=== PATIENT | male | born 1955 | race Caucasian/White ===

== ENCOUNTER 2016-10-20 16:05 | Inpatient (IN) | payer OTHER, MEDICARE ==
[~2016-10-20] VITALS: Ht 190.5 cm; Wt 95.7 kg
[2016-10-20 17:23] VITALS: BP 158/75; PULSE 74; RESP 16; TEMP 96.6; O2SAT 94
[2016-10-20 18:57] LABS: AUTOMATED NEUTROPHIL # 8.4 TH/MM3 (1.8-7.7); BASOPHIL # 0.1 TH/MM3 (0-0.2); BASOPHIL % 0.8 % (0.0-2.0); EOSINOPHIL # 0.1 TH/MM3 (0-0.4); EOSINOPHIL % 0.9 % (0.0-4.0); HEMATOCRIT 35.9 % (39.0-51.0); HEMO FLAGS DIFF FINAL; LYMPH % 6.5 % (9.0-44.0); LYMPHOCYTE # 0.6 TH/MM3 (1.0-4.8); MEAN CELL VOLUME 82.8 FL (80.0-100.0); MEAN CORPUSCULAR HEMOGLOBIN 25.4 PG (27.0-34.0); MEAN CORPUSCULAR HGB CONC 30.6 % (32.0-36.0); MONO % 8.4 % (0.0-8.0); NEUT % 83.4 % (16.0-70.0); PLATELET COUNT 256 TH/MM3 (150-450); RED BLOOD COUNT 4.34 MIL/MM3 (4.50-5.90); RED CELL DISTRIBUTION WIDTH 15.6 % (11.6-17.2)
[2016-10-20 19:12] LABS: APTT (PATIENT) 51.8 SEC (24.3-30.1); INTERNATIONAL NORMALIZED RATIO 4.1 RATIO
[2016-10-20 19:17] LABS: ANION GAP 12 MEQ/L (5-15); AST (GOT) 25 U/L (15-37); BICARBONATE 24.5 MEQ/L (21.0-32.0); BLOOD UREA NITROGEN 72 MG/DL (7-18); CHLORIDE 106 MEQ/L (98-107); GLOMERULAR FILTRATION RATE 22 ML/MIN (>89); POTASSIUM 4.2 MEQ/L (3.5-5.1); SODIUM (NA) 142 MEQ/L (136-145)
[2016-10-20 19:20] LABS: ALKALINE PHOSPHATASE 72 U/L (45-117); ALT (GPT) 34 U/L (12-78); TOTAL BILIRUBIN ADULT 0.8 MG/DL (0.2-1.0)
--- NOTE | 2016-10-20 19:56 | HHI.HP ---
History of Present Illness Chief Complaint: back pain, SOB History of Present Illness 61 yo male with Marfan's syndrome who in 1998 underwent AVR/root (from his description) for what sounds like incidentally discovered ascending aortic aneurysm. Did well but then in 2007 had CP/SOB and was seen at [facility] and underwent L C-SC bypass with TEVAR, being discharged in December 2008. He has had chronic SOB since then but over the last few weeks it has worsened and he was admitted to outside hospital on . A CT scan (images NOT available) suggests he has an aneurysm or maybe pseudoaneurysm, although the CT was done without contrast because of renal insufficiency. The patient notes that his current worsening SOB is not worse since admission 4 days ago. Past/Family/Social History Past Medical History Marfan's syndrome HTN ?CAD CHF (15% reportedly) CRI Past Surgical History 1. AVR/ascending root - 1998 2. L C-SC/TEVAR - 2007 3. 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 Family History no history of Marfan's Coded Allergies: Vancomycin (Verified Allergy, Severe, Hallucinations, 10/20/16) Penicillin (Verified Allergy, Mild, Hives, 10/20/16) Review of Systems Constitutional: COMPLAINS OF: Fatigue, DENIES: Fever, Night Sweats Respiratory: COMPLAINS OF: Shortness of breath Cardiovascular: COMPLAINS OF: Dyspnea on Exertion, DENIES: Chest pain, Syncope Musculoskeletal: COMPLAINS OF: Joint pain, Back pain Physical Exam Vitals/I&O Date Time Temp Pulse Resp B/P Pulse Ox O2 Delivery O2 Flow Rate FiO2 10/20/16 17:23 96.6 74 16 158/75 94 Neuro: resting comfortably, does not appear to be in any distress HEENT: NC/AT; aniecteric sclera; pupils equal Neck: no JVD; healed L supraclavicular neck incision Heart: + audible click; sternotomy healed Lungs: diminished BS B Abdomen: NT, slightly distended Vascular: palpable femoral pulses, sl tender palp popliteal pulses Extremities: LAMAS Laboratory Tests Test 10/20/16 18:35 White Blood Count 10.0 Red Blood Count 4.34 Hemoglobin 11.0 Hematocrit 35.9 Mean Corpuscular Volume 82.8 Mean Corpuscular Hemoglobin 25.4 Mean Corpuscular Hemoglobin 30.6 Concent Red Cell Distribution Width 15.6 Platelet Count 256 Mean Platelet Volume 7.9 Neutrophils (%) (Auto) 83.4 Lymphocytes (%) (Auto) 6.5 Monocytes (%) (Auto) 8.4 Eosinophils (%) (Auto) 0.9 Basophils (%) (Auto) 0.8 Neutrophils # (Auto) 8.4 Lymphocytes # (Auto) 0.6 Monocytes # (Auto) 0.8 Eosinophils # (Auto) 0.1 Basophils # (Auto) 0.1 CBC Comment DIFF FINAL Differential Comment Prothrombin Time 48.0 Prothromb Time International 4.1 Ratio Activated Partial 51.8 Thromboplast Time Sodium Level 142 Potassium Level 4.2 Chloride Level 106 Carbon Dioxide Level 24.5 Anion Gap 12 Blood Urea Nitrogen 72 Creatinine 2.94 Estimat Glomerular Filtration 22 Rate Random Glucose 103 Calcium Level 9.3 Total Bilirubin 0.8 Aspartate Amino Transf 25 (AST/SGOT) Alanine Aminotransferase 34 (ALT/SGPT) Alkaline Phosphatase 72 Total Protein 8.0 Albumin 4.3 not available for my review; no free fluid per report Assessment and Plan Plan Complicated cardiovascular history - Marfan's, AVR/ascending and then L C-SC/ TEVAR 1. Reverse coumadin (INR 4.1) and start hep gtt when INR < 2.0; will give vit K for now and hold coumadin 2. BP control for goal SBP<[address] C/A/P tonight. 4. Gentle IV hydration with HCO3 in anticipation of CTA tomorrow (creatinine 3) 5. TTE, ABIs Darryl Pérez MD FACS dwarf tree grower [facility] - Heart and Vascular Surgery at [facility] Darryl Pérez MD October 20, 2016 19:56
[2016-10-20 20:00] VITALS: BP 159/72; PULSE 67; RESP 17; TEMP 97.8; O2SAT 94
[2016-10-20] MEDS ORDERED: PHYTONADIONE 5 MG TAB PO ONE (20:00)
[2016-10-20] MEDS: PHYTONADIONE 5 MG TAB PO SCH ×2 (20:00→21:42)
[2016-10-20] MEDS: RESP: ALBUTEROL 2.5 MG/IPRATROPIUM 0.5 MG NEB (SCH) NEB (20:08)
[2016-10-20] MEDS ORDERED: ACETYLCYSTEINE 20% ORAL SOLN 4 ML VIAL PO SCH (21:00)
[2016-10-20] MEDS ORDERED: SODIUM BICARBONATE 8.4% INJ 50 MEQ in DEXTROSE 5% IN WATE 1000ML INJ 1,000 ML IV SCH ×2 (21:00)
[2016-10-20] MEDS ORDERED: FUROSEMIDE 40 MG/4 ML VIAL IV PUSH SCH (21:00)
--- NOTE | 2016-10-20 21:19 | PD.CONS ---
HPI Service Critical Care Medicine Consult Requested By Primary Care Physician Unknown History of Present Illness 61 year old very pleasant gentleman with Marfan's syndrome who in 1998 underwent aortic valve replacement - root due to ascending aortic aneurysm. He was doing well but then in 2007 had chest pain and shortness of breath and was seen at [facility] and underwent L C-SC bypass with TAVR, and was discharged in December 2008. He has had chronic SOB since then but over the last few weeks it has worsened and he was admitted to outside hospital on . A CT scan suggested he has an aneurysm or pseudoaneurysm and he was transferred here for higher level of care. Review of Systems Constitutional: DENIES: Diaphoretic episodes, Fatigue, Fever, Weight gain, Weight loss, Chills, Dizziness, Change in appetite, Night Sweats Endocrine: DENIES: Heat/cold intolerance, Polydipsia, Polyuria, Polyphagia Eyes: DENIES: Blurred vision, Diplopia, Eye inflammation, Eye pain, Vision loss , Photosensitivity, Double Vision Ears, nose, mouth, throat: DENIES: Tinnitus, Hearing loss, Vertigo, Nasal discharge, Oral lesions, Throat pain, Hoarseness, Ear Pain, Running Nose, Epistaxis, Sinus Pain, Toothache, Odynophagia Respiratory: COMPLAINS OF: Shortness of breath, DENIES: Apneas, Cough, Snoring , Wheezing, Hemoptysis, Sputum production Cardiovascular: COMPLAINS OF: Dyspnea on Exertion, DENIES: Chest pain, Palpitations, Syncope, PND, Lower Extremity Edema, Orthopnea, Claudication Gastrointestinal: DENIES: Abdominal pain, Black stools, Bloody stools, Constipation, Diarrhea, Nausea, Vomiting, Difficulty Swallowing, Anorexia Genitourinary: DENIES: Sexual dysfunction, Urinary frequency, Urinary incontinence, Urgency, Hematuria, Dysuria, Nocturia, Penile Discharge, Testicular Pain, Testicular Swelling Musculoskeletal: DENIES: Joint pain, Muscle aches, Stiffness, Joint Swelling, Back pain, Neck pain Integumentary: DENIES: Abnormal pigmentation, Nail changes, Pruritus, Rash Hematologic/lymphatic: DENIES: Bruising, Lymphadenopathy Immunologic/allergic: DENIES: Eczema, Urticaria Neurologic: DENIES: Abnormal gait, Headache, Localized weakness, Paresthesias, Seizures, Speech Problems, Tremor, Poor Balance Psychiatric: DENIES: Anxiety, Confusion, Mood changes, Depression, Hallucinations, Agitation, Suicidal Ideation, Homicidal Ideation, Delusions Past Family Social History Allergies: Coded Allergies: Vancomycin (Verified Allergy, Severe, Hallucinations, 10/20/16) Penicillin (Verified Allergy, Mild, Hives, 10/20/16) Past Medical History Marfan's syndrome Hypertension Coronary artery disease Congestive heart failure (15% reportedly) Chronic renal insufficiency Past Surgical History 1. AVR/ascending root - 1998 2. L C-SC/TEVAR - 2007 3. R neck gland excision - age 9 Active Ordered Medications Current Medications Medications (Trade) Dose Ordered Sig/Katharina Route PRN Reason Start Time Stop Time Status Last Admin Dose Admin Aspirin (Aspirin Chew) 81 mg DAILY PO 10/21/16 09:00 Famotidine (Pepcid) 20 mg DAILY PO 10/21/16 09:00 Cholecalciferol (Vitamin D3) 1,000 units DAILY PO 10/21/16 09:00 Furosemide (Lasix Inj) 40 mg BID IV PUSH 10/20/16 21:00 Future Hold 10/20/16 21:29 Metoprolol Tartrate (Lopressor) 100 mg BID PO 10/20/16 21:00 10/20/16 21:25 Valsartan (Diovan) 80 mg DAILY PO 10/21/16 09:00 Future Hold Nicotine (Habitrol 21 Mg Patch.24 Hr) 21 patch DAILY T-DERMAL 10/21/16 09:00 Lorazepam (Ativan) 0.5 mg Q6H PRN PO ANXIETY 10/20/16 19:15 Morphine Sulfate (Morphine Inj) 2 mg Q4H PRN IV MODERATE PAIN 10/20/16 19:15 10/20/16 21:27 Metoprolol Tartrate 5 mg 5 mg Q2H PRN IV PUSH SBP >130 10/20/16 20:00 Sodium Bicarbonate/ Dextrose (Sodium Bicarbonate 8.4% Inj/D5W 1000 ml Inj) 1,050 ml @ 42 mls/hr Q24H IV 10/20/16 21:00 Phytonadione (Mephyton) 5 mg DAILY PO 10/20/16 20:00 10/23/16 09:00 Acetylcysteine (Mucomyst 20% Liq) 600 mg BID PO 10/20/16 21:00 10/22/16 21:00 Family History Noncontributory No family history of Marfan syndrome Social History Negative for alcohol or illicit drug abuse 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 SKIN: Warm and dry. HEAD: Normocephalic. EYES: No scleral icterus. No injection or drainage. NECK: Supple, trachea midline. No JVD or lymphadenopathy. CARDIOVASCULAR: Regular rate and rhythm without murmurs, gallops, or rubs. RESPIRATORY: Breath sounds equal bilaterally. No accessory muscle use. GASTROINTESTINAL: Abdomen soft, non-tender, nondistended. MUSCULOSKELETAL: No cyanosis, or edema. BACK: Nontender without obvious deformity. No CVA tenderness. EXTREMITIES: No clubbing cyanosis or edema Laboratory Laboratory Tests Test 10/20/16 18:35 White Blood Count 10.0 Red Blood Count 4.34 Hemoglobin 11.0 Hematocrit 35.9 Mean Corpuscular Volume 82.8 Mean Corpuscular Hemoglobin 25.4 Mean Corpuscular Hemoglobin 30.6 Concent Red Cell Distribution Width 15.6 Platelet Count 256 Mean Platelet Volume 7.9 Neutrophils (%) (Auto) 83.4 Lymphocytes (%) (Auto) 6.5 Monocytes (%) (Auto) 8.4 Eosinophils (%) (Auto) 0.9 Basophils (%) (Auto) 0.8 Neutrophils # (Auto) 8.4 Lymphocytes # (Auto) 0.6 Monocytes # (Auto) 0.8 Eosinophils # (Auto) 0.1 Basophils # (Auto) 0.1 CBC Comment DIFF FINAL Differential Comment Prothrombin Time 48.0 Prothromb Time International 4.1 Ratio Activated Partial 51.8 Thromboplast Time Sodium Level 142 Potassium Level 4.2 Chloride Level 106 Carbon Dioxide Level 24.5 Anion Gap 12 Blood Urea Nitrogen 72 Creatinine 2.94 Estimat Glomerular Filtration 22 Rate Random Glucose 103 Calcium Level 9.3 Total Bilirubin 0.8 Aspartate Amino Transf 25 (AST/SGOT) Alanine Aminotransferase 34 (ALT/SGPT) Alkaline Phosphatase 72 Total Protein 8.0 Albumin 4.3 Result Diagram: 10/20/16183410/20/165 Assessment and Plan Assessment and Plan Thoracic aneurysm - CT chest without contrast without any sense of active extravasation - CTA tomorrow - Management per vascular surgery - Reverse Coumadin coagulopathy Hypertension - Continue metoprolol - Hold Valsartan due to impaired renal function - Hold Furosemide - We'll use Lopressor when necessary to keep SBP less than 130 Coronary artery disease - EKGs and serial troponins Congestive heart failure (15% reportedly) - Repeat 2-D echo - Hold ARBs due to worsening renal function in in need of IV contrast - Hold diuretics as above Chronic renal insufficiency - Avoid nephrotoxin - Gentle hydration with sodium bicarbonate DVT GI prophylaxis - Teds SCDs heparin - Heart healthy diet Critical Care: The total critical care time was 35 minutes. Time to perform other separately billable procedures was not included in the critical care time. Ricardo Gasca MD October 20, 2016 21:19
[2016-10-20] MEDS: METOPROLOL TARTRATE 50 MG TAB PO SCH (21:25)
[2016-10-20] MEDS: MORPHINE SULFATE 4 MG/ML INJ IV PRN (21:27)
--- NOTE | 2016-10-20 21:34 | RADRPT ---
EXAM DATE/TIME: 10/20/2016 20:58 [facility] COMPARISON: No previous studies available for comparison. INDICATIONS : Short of breath. Evaluate for aneurysm. ORAL CONTRAST: No oral contrast ingested. RADIATION DOSE: 5.54 CTDIvol (mGy) ; Combined studies - Thorax/Abdomen/Pelvis MEDICAL HISTORY : Chronic obstructive pulmonary disease. Cardiovascular disease CVA. SURGICAL HISTORY : Hernia repair. Aortic valve replacement. ENCOUNTER: Initial ACUITY: 1 day PAIN SCALE: 0/10 LOCATION: Bilateral abdomen TECHNIQUE: Volumetric scanning of the abdomen and pelvis was performed. Using automated exposure control and ad justment of the mA and/or kV according to patient size, radiation dose was kept as low as reasonably achievable to obtain optimal diagnostic quality images. FINDINGS: LIVER: Homogeneous density without lesion. There is no dilation of the biliary tree. No calcified gallston es. SPLEEN: Normal size without lesion. PANCREAS: Within normal limits. KIDNEYS: Too numerous to count cysts are seen of both kidneys. There some cortical thinning and scarring mid z one of the right kidney. There is a 4 mm nonobstructing right mid zone and 3 mm nonobstructing left m id zone stone. No ureteral calculus. No hydronephrosis or hydroureter. ADRENAL GLANDS: Within normal limits. VASCULAR: There is aortoiliac atherosclerosis. No aneurysm. BOWEL/MESENTERY: Retained contrast seen in the colon, may have been from a recent outside facility enema. There are di verticula of the sigmoid and distal descending colon but no acute inflammatory changes. No obstructio n. ABDOMINAL WALL: Within normal limits. RETROPERITONEUM: There is no lymphadenopathy. BLADDER: No wall thickening or mass. REPRODUCTIVE: Within normal limits. INGUINAL: There is no lymphadenopathy or hernia. MUSCULOSKELETAL: Within normal limits for patient age. CONCLUSION: 1. Abdominal aorta is atherosclerotic but without aneurysm or other acute abnormality. 2. Apparent polycystic kidney disease. No acute abnormality demonstrated. 3. Colonic diverticulosis without diverticulitis or other acute inflammatory changes. Yan Barrera MD on October 20, 2016 at 21:29 Board Certified Radiologist. This report was verified electronically.
[2016-10-20] MEDS: ACETYLCYSTEINE 20% 6,000 MG/30 ML ORAL SOLN VIAL PO SCH (21:41)
--- NOTE | 2016-10-20 21:53 | RADRPT ---
EXAM DATE/TIME: 10/20/2016 21:01 [facility] COMPARISON: No previous studies available for comparison. INDICATIONS : Short of breath. Evaluate for aortic dissection. RADIATION DOSE: 5.54 CTDIvol (mGy) ; Combined studies - Thorax/Abdomen/Pelvis MEDICAL HISTORY : Cardiovascular disease. Chronic obstructive pulmonary disease. CVA. SURGICAL HISTORY : Hernia repair. Aortic valve replacement. ENCOUNTER: Initial ACUITY: 1 day PAIN SCALE: 0/10 LOCATION: Bilateral chest TECHNIQUE: Volumetric scanning of the chest was performed. Using automated exposure control and adjustment of t he mA and/or kV according to patient size, radiation dose was kept as low as reasonably achievable to obtain optimal diagnostic quality images. FINDINGS: Patient has a thoracic aortic stent extending from the root to the descending aorta at the level of t he diaphragm. There is aneurysmal dilatation of the descending thoracic aorta, measures approximately 5.2 cm maximum. Most if not all of this is probably residual aneurysm sac but I don't have any prior s. Within the aneurysm sac, especially anteriorly, is somewhat heterogeneous increased attenuation, f or example series 301 image 32. The noncontrast appearance suggests a possible endoleak or armand-stent hematoma. I don't see a hematoma outside of the aortic lumen. A somewhat saccular portion of the ane urysm sac is seen laterally just above the diaphragm, has fairly low attenuation within it. Mild left ventricular dilatation. There is right and left-sided coronary artery calcification. N o mediastinal lymphadenopathy. Mild atelectasis and infiltrate seen in the left lung base. There is some chronic appearing left base scarring with volume loss. Old left rib fractures are noted. CONCLUSION: 1. Aortic stent graft present extending from the root to the diaphragmatic hiatus. There is an aneury sm sac of the descending thoracic aorta with somewhat heterogeneous attenuation contents and also a f ocally saccular configuration as described above. Endoleak and/or hematoma within the aneurysm sac po ssible. I don't see any extraluminal collections or inflammatory changes. There is no mediastinal hem atoma. If patient's renal function can tolerate it, CT aortogram is suggested. 2. Patchy infiltrate and atelectasis of the left lung base. There is chronic appearing volume loss. P atient has old left rib fractures. 3. Left ventricular dilatation and coronary artery calcification noted. Yan Barrera MD on October 20, 2016 at 21:44 Board Certified Radiologist. This report was verified electronically.
--- NOTE | 2016-10-20 22:34 | EKG ---
Date Performed: 10/20/2016 Time Performed: 19:25:46 PTAGE: 61 years EKG: Sinus rhythm WITH OCCASIONAL VENTRICULAR PREMATURE COMPLEXES POSSIBLE LEFT ATRIAL ENLARGEMENT NONSPECIFIC INTRAVE NTRICULAR CONDUCTION DELAY ABNORMAL ECG NO PREVIOUS TRACING DOCTOR: Linus Vargas Interpretating Date/Time 10/20/2016 22:33:43
[2016-10-20] MEDS ORDERED: RESP: ALBUTEROL 2.5 MG/IPRATROPIUM 0.5 MG NEB (PRN) NEB (22:45)
[2016-10-20 23:30] VITALS: PULSE 68
[2016-10-21] VITALS (12 sets, daily range): BP systolic 99–145; BP diastolic 55–80; PULSE 64–73; RESP 16–20; TEMP 97.5–98.2; O2SAT 93–99
[2016-10-21] MEDS: METOPROLOL TARTRATE 5 MG/5 ML VIAL IV PUSH PRN ×3 (00:43→16:23)
[2016-10-21] MEDS: MORPHINE SULFATE 4 MG/ML INJ IV PRN ×3 (01:36→08:55)
[2016-10-21] MEDS: RESP: ALBUTEROL 2.5 MG/IPRATROPIUM 0.5 MG NEB (SCH) NEB ×4 (04:35→21:52)
[2016-10-21 06:03] LABS: AUTOMATED NEUTROPHIL # 6.1 TH/MM3 (1.8-7.7); BASOPHIL # 0.1 TH/MM3 (0-0.2); EOSINOPHIL # 0.1 TH/MM3 (0-0.4); EOSINOPHIL % 1.5 % (0.0-4.0); HEMATOCRIT 33.8 % (39.0-51.0); HEMO FLAGS DIFF FINAL; LYMPHOCYTE # 0.9 TH/MM3 (1.0-4.8); MEAN CELL VOLUME 82.1 FL (80.0-100.0); MEAN CORPUSCULAR HEMOGLOBIN 25.4 PG (27.0-34.0); MEAN CORPUSCULAR HGB CONC 30.9 % (32.0-36.0); MONO % 12.6 % (0.0-8.0); NEUT % 73.9 % (16.0-70.0); PLATELET COUNT 245 TH/MM3 (150-450); RED BLOOD COUNT 4.12 MIL/MM3 (4.50-5.90); RED CELL DISTRIBUTION WIDTH 15.5 % (11.6-17.2); WHITE BLOOD COUNT 8.3 TH/MM3 (4.0-11.0)
[2016-10-21 06:17] LABS: INTERNATIONAL NORMALIZED RATIO 3.8 RATIO; PROTHROMBIN TIME - PATIENT 44.5 SEC (9.8-11.6)
[2016-10-21 06:27] LABS: ALT (GPT) 29 U/L (12-78); ANION GAP 8 MEQ/L (5-15); AST (GOT) 16 U/L (15-37); BICARBONATE 27.1 MEQ/L (21.0-32.0); BLOOD UREA NITROGEN 68 MG/DL (7-18); CHLORIDE 108 MEQ/L (98-107); GLOMERULAR FILTRATION RATE 24 ML/MIN (>89); MAGNESIUM 2.8 MG/DL (1.5-2.5); POTASSIUM 4.1 MEQ/L (3.5-5.1); SODIUM (NA) 143 MEQ/L (136-145)
[2016-10-21 06:32] LABS: ALKALINE PHOSPHATASE 66 U/L (45-117); TOTAL BILIRUBIN ADULT 0.7 MG/DL (0.2-1.0)
[2016-10-21] MEDS ORDERED: FUROSEMIDE 20 MG/2 ML VIAL IV PUSH ONE (06:45)
[2016-10-21 06:55] LABS: BLOOD GAS BASE EXCESS -2.2 mmol/L (-2-2); BLOOD GAS HCO3 22 mmol/L (22-26); BLOOD GAS METHEMOGLOBIN 1.1 % (0-2); BLOOD GAS O2 HGB SATURATION 95 % (90-100); BLOOD GAS OXYGEN CONTENT 13.4 Vol % (12.0-20.0); BLOOD GAS PCO2 40 mmHg (38-42); BLOOD GAS PO2 110 mmHg (61-120); BLOOD GAS TOTAL HGB 9.9 G/DL (12.0-16.0); CRITICAL VALUE NO; DRAW SITE LT RADIAL; LITER FLOW 2 L/M; NUMBER OF ARTERIAL PUNCTURES 1; OXYGEN DEVICE NASAL CANNULA; STAT NO; TEMP CORR TO 98.6; ULNAR PULSE PRESENT
[2016-10-21] MEDS: ASPIRIN 81 MG CHEW TAB PO SCH (08:51)
[2016-10-21] MEDS: NICOTINE 21 MG/24 HR PATCH T-DERMAL SCH (08:53)
[2016-10-21] MEDS: FAMOTIDINE 20 MG TAB PO SCH (08:54)
[2016-10-21] MEDS: METOPROLOL TARTRATE 50 MG TAB PO SCH ×2 (08:54→21:39)
[2016-10-21] MEDS: CHOLECALCIFEROL (VIT D3) 1000 UNIT TAB PO SCH (08:54)
[2016-10-21] MEDS ORDERED: VALSARTAN 80 MG TAB PO SCH (09:00)
[2016-10-21] MEDS ORDERED: NALOXONE HCL 0.4 MG/ML AMP IV PRN (10:30)
--- NOTE | 2016-10-21 10:38 | PD.VS.PN ---
Subjective Subjective/Hospital Course Pt with persistent back pain this morning. Stable. NC CT suggestive of mid/distal thoracic pseudoaneurysm. No IV contrast administered because of CRI. No fluid in chest. HD stable overnight. Objective Vitals/I&O Date Time Temp Pulse Resp B/P Pulse Ox O2 Delivery O2 Flow Rate FiO2 10/21/16 09:00 16 10/21/16 06:00 66 10/21/16 04:35 99 Nasal Cannula 2.00 10/21/16 04:00 67 10/21/16 04:00 98.2 67 18 134/72 98 10/21/16 02:00 66 10/21/16 00:00 97.5 64 18 134/77 98 10/21/16 00:00 97.9 66 17 111/55 97 10/20/16 23:30 68 10/20/16 20:00 97.8 67 17 159/72 94 10/20/16 17:23 96.6 74 16 158/75 94 Physical Exam no distress. Palpable femoral pulses. Laboratory Laboratory Tests Test 10/20/16 10/21/16 10/21/16 10/21/16 18:35 05:29 06:43 06:44 White Blood Count 10.0 8.3 Red Blood Count 4.34 4.12 Hemoglobin 11.0 10.5 Hematocrit 35.9 33.8 Mean Corpuscular Volume 82.8 82.1 Mean Corpuscular Hemoglobin 25.4 25.4 Mean Corpuscular Hemoglobin 30.6 30.9 Concent Red Cell Distribution Width 15.6 15.5 Platelet Count 256 245 Mean Platelet Volume 7.9 8.0 Neutrophils (%) (Auto) 83.4 73.9 Lymphocytes (%) (Auto) 6.5 11.0 Monocytes (%) (Auto) 8.4 12.6 Eosinophils (%) (Auto) 0.9 1.5 Basophils (%) (Auto) 0.8 1.0 Neutrophils # (Auto) 8.4 6.1 Lymphocytes # (Auto) 0.6 0.9 Monocytes # (Auto) 0.8 1.1 Eosinophils # (Auto) 0.1 0.1 Basophils # (Auto) 0.1 0.1 CBC Comment DIFF FINAL DIFF FINAL Differential Comment Prothrombin Time 48.0 44.5 Prothromb Time International 4.1 3.8 Ratio Activated Partial 51.8 Thromboplast Time Sodium Level 142 143 Potassium Level 4.2 4.1 Chloride Level 106 108 Carbon Dioxide Level 24.5 27.1 Anion Gap 12 8 Blood Urea Nitrogen 72 68 Creatinine 2.94 2.74 Estimat Glomerular Filtration 22 24 Rate Random Glucose 103 91 Calcium Level 9.3 9.1 Total Bilirubin 0.8 0.7 Aspartate Amino Transf 25 16 (AST/SGOT) Alanine Aminotransferase 34 29 (ALT/SGPT) Alkaline Phosphatase 72 66 Total Protein 8.0 7.3 Albumin 4.3 4.0 Phosphorus Level 3.9 Magnesium Level 2.8 Troponin I 0.07 Blood Type A POSITIVE Blood Bank Comment Blood Gas Puncture Site LT RADIAL Blood Gas Patient Temperature 98.6 Blood Gas HCO3 22 Blood Gas Base Excess -2.2 Blood Gas Oxygen Saturation 95 Arterial Blood pH 7.37 Arterial Blood Partial 40 Pressure CO2 Arterial Blood Partial 110 Pressure O2 Arterial Blood Oxygen Content 13.4 Arterial Blood 2.0 Carboxyhemoglobin Arterial Blood Methemoglobin 1.1 Blood Gas Hemoglobin 9.9 Oxygen Delivery Device NASAL CANNULA Blood Gas Liter Flow 2 Test 10/21/16 07:17 Blood Type A POSITIVE Imaging Last [address] 10/20/16 0000 Signed Impressions: Service Date/Time: Thursday, October 20, 2016 21:01 - CONCLUSION: 1. Aortic stent graft present extending from the root to the diaphragmatic hiatus. There is an aneurysm sac of the descending thoracic aorta with somewhat heterogeneous attenuation contents and also a focally saccular configuration as described above. Endoleak and/or hematoma within the aneurysm sac possible. I don't see any extraluminal collections or inflammatory changes. There is no mediastinal hematoma. If patient's renal function can tolerate it, CT aortogram is suggested. 2. Patchy infiltrate and atelectasis of the left lung base. There is chronic appearing volume loss. Patient has old left rib fractures. 3. Left ventricular dilatation and coronary artery calcification noted. Yan Barrera MD Abdomen/Pelvis CT 10/20/16 0000 Signed Impressions: Service Date/Time: Thursday, October 20, 2016 20:58 - CONCLUSION: 1. Abdominal aorta is atherosclerotic but without aneurysm or other acute abnormality. 2. Apparent polycystic kidney disease. No acute abnormality demonstrated. 3. Colonic diverticulosis without diverticulitis or other acute inflammatory changes. Yan Barrera MD Assessment and Plan Plan Complicated cardiovascular history - Marfan's, AVR/ascending and then L C-SC/ TEVAR 1. continue BP control with goal SBP <130 2. NPO after MN 3. TEVAR tomorrow 4. Continue MIVF with HCO3 and Mucomyst for renal protection 5. [facility] for [facility] 6. Tx FFP with Lasix to get INR < 1.5. 7. TTE and ABIs today I discussed the risks of TEVAR with the patient today - specifically, spinal cord ischemia. He understands. To OR tomorrow. Darryl Pérez MD FACS aircraft electrical systems specialist [facility] - Heart and Vascular Surgery at [facility] Darryl Pérez MD October 21, 2016 10:38
[2016-10-21] MEDS: PHYTONADIONE 5 MG TAB PO SCH (11:39)
[2016-10-21] MEDS: ACETYLCYSTEINE 20% 6,000 MG/30 ML ORAL SOLN VIAL PO SCH ×2 (12:55→21:39)
--- NOTE | 2016-10-21 13:46 | EC ---
Study Study Date:10/21/2016 STUDY CONCLUSIONS SUMMARY - Left ventricle: The cavity size was moderately dilated. Systolic function was severely reduced. The estimated ejection fraction was in the range of 20% to 25%. Akinesis of the inferior myocardium. Hypokinesis of the anteroseptal myocardium. The study is not technically sufficient to allow evaluation of LV diastolic function. - Aortic valve: A bioprosthesis was present and functioning normally. There was no stenosis (Mean gradient 15, max velocity 1.97, giving an IVY of 0.8 but LVOT is most likely measured too small, overall bioprosthetic appears to open well) Trace regurgitation. - Mitral valve: Mobility of the posterior leaflet was restricted. Moderate regurgitation. - Right ventricle: The cavity size was moderately dilated. Systolic function was mildly reduced. - Pulmonary arteries: PA peak pressure: 59mm Hg (S). If LV function is below 40, please consider prescribing an ACEI or ARB or document rationale for non-use. PROCEDURE DATA STUDY STATUS: Elective. Procedure: Transthoracic echocardiography. Image quality was good. Scanning was performed from the parasternal, apical, and subcostal acoustic windows. Study completion: The patient tolerated the procedure well. Transthoracic echocardiography. M-mode, complete 2D, complete spectral Doppler, and color Doppler. Height: Height: 75in. Weight: Weight: 203.6lb. Body mass index: BMI: 25.5kg/m^2. Body surface area: BSA: 2.21m^2. Patient status: Inpatient. CARDIAC ANATOMY LEFT VENTRICLE: The cavity size was moderately dilated. Systolic function was severely reduced. The estimated ejection fraction was in the range of 20% to 25%. Regional wall motion abnormalities: Akinesis of the inferior myocardium. Hypokinesis of the anteroseptal myocardium. The study is not technically sufficient to allow evaluation of LV diastolic function. Appears to be calcified false tendon in the left ventricle. AORTIC VALVE: Not well visualized. A bioprosthesis was present and functioning normally. Doppler: There was no stenosis (Mean gradient 15, max velocity 1.97, giving an IVY of 0.8 but LVOT is most likely measured too small, overall bioprosthetic appears to open well) Trace regurgitation. Valve area: 0.58cm^2(VTI). Indexed valve area: 0.26cm^2/m^2 (VTI). Valve area: 0.54cm^2 (Vmax). Indexed valve area: 0.24cm^2/m^2 (Vmax). Mean gradient: 14mm Hg (S). Peak gradient: 32mm Hg (S). AORTA: Previously repaired, appears stable MITRAL VALVE: Mobility of the posterior leaflet was restricted. Doppler: There was no evidence for stenosis. Moderate regurgitation. Peak gradient: 6mm Hg (D). LEFT ATRIUM: The atrium was moderately dilated. RIGHT VENTRICLE: The cavity size was moderately dilated. Systolic function was mildly reduced. PULMONIC VALVE: Not well visualized. Doppler: Trace regurgitation. TRICUSPID VALVE: The valve appears to be grossly normal. Doppler: There was no evidence for stenosis. Mild regurgitation. PERICARDIUM: There was no pericardial effusion. Patient weight: 203.6lb _Ejection fraction:_ 65-75% _Fractional shortening:_ 32% up to 5Kg 5-11.5Kg 11.6-22.9Kg 23-45Kg 45-57Kg Aortic Root 7-13 <17 13-22 17-27 17-27 LA diam 6-13 <23 24-38 33-47 37-40 RVID 10-17 7-15 7-15 7-18 8-17 LVIDd 12-22 <32 24-38 33-47 37-40 LVPW 2-4 3-6 5-7 6-8 7-8 IVS 2-4 3-6 5-7 6-8 7-8 BASIC MEASUREMENTS ADULT NORMAL Left ventricle LV internal dimension, ED, chordal *62.2 mm 43-52 level, PLAX LV internal dimension, ES, chordal *57.8 mm 23-38 level, PLAX Fractional shortening, chordal level, *7 % >29 PLAX LV posterior wall thickness, ED 11.6 mm IVS/LVPW ratio, ED 1 <1.3 Ventricular septum Septal thickness, ED 11.6 mm Aorta Root diameter, ED 31 mm Left atrium Anterior-posterior dimension 57 mm Anterior-posterior dimension index *2.58 cm/m^2 <2.2 DOPPLER MEASUREMENTS ADULT NORMAL Main pulmonary artery Pressure, S *59 mm Hg =30 Aortic valve Peak velocity, S 281 cm/s Mean velocity, S 166 cm/s VTI, S 56 cm Mean gradient, S 14 mm Hg Peak gradient, S 32 mm Hg Valve area, VTI 0.58 cm^2 Valve area index, VTI 0.26 cm^2/m^2 Valve area, Vmax 0.54 cm^2 Valve area index, Vmax 0.24 cm^2/m^2 Mitral valve Peak E-wave velocity 125 cm/s Peak A-wave velocity 61.2 cm/s Deceleration time *148 ms 150-230 Peak gradient, D 6 mm Hg Peak E/A ratio 2 Tricuspid valve Regurgitant peak velocity 357 cm/s Peak RV-RA gradient, S 51 mm Hg Maximal regurgitant velocity 357 cm/s Systemic veins Estimated CVP 10 mm Hg Right ventricle RV pressure, S *61 mm Hg <30 Pulmonic valve Peak velocity, S 69.2 cm/s LEGEND: Mean values are shown as u=mean value. Asterisk (*) montaño values outside specified normal range. Prepared and signed by Darío Rucker [id number]
--- NOTE | 2016-10-21 13:57 | RADRPT ---
EXAM DATE/TIME: 10/20/2016 00:00 [facility] COMPARISON: No previous studies available for comparison. INDICATIONS : Coronary artery disease, hypertension TECHNIQUE: Four-cuff ankle and brachial pressures were obtained. Pulse cuff waveform tracings of the ankles were recorded, and ankle-brachial indices were calculated. PRESSURES (mmHg): Brachial (arm): Right iv site Left 130 Ankle: Right 49 Left 61 EZIO: Right 0.38 Left 0.47 TBI: Right 0.15 Left 0.18 PULSED CUFF WAVEFORMS: Demonstrate normal amplitude bilaterally. CONCLUSION: Significant reduction of the ABIs bilaterally. James Alvarado Jr., MD on October 21, 2016 at 13:55 Board Certified Radiologist. This report was verified electronically.
[2016-10-21] MEDS: PCA - TOTAL MG MORPHINE DELIVERED PER SHIFT SCH ×2 (14:00→22:00)
[2016-10-21] MEDS ORDERED: PROTHROMBIN COMPLEX CONC INJ 3,000 UNITS in SYRINGE/BAG 1 EA IV ONE (15:00)
--- NOTE | 2016-10-21 15:08 | HHI.CCPN ---
Subjective Remarks/Hospital Course Hospital Course: 61 year old very pleasant gentleman with Marfan's syndrome who in 1998 underwent aortic valve replacement - root due to ascending aortic aneurysm. He was doing well but then in 2007 had chest pain and shortness of breath and was seen at [facility] and underwent L C-SC bypass with TAVR, and was discharged in December 2008. He has had chronic SOB since then but over the last few weeks it has worsened and he was admitted to outside hospital on . A CT scan suggested he has an aneurysm or pseudoaneurysm and he was transferred here for higher level of care. Subjective: 10/21: doing well this morning. pain better controlled. becoming alkalotic on sodium bicarb infusion. Cr slightly downtrended. Objective Vital Signs Date Time Temp Pulse Resp B/P Pulse Ox O2 Delivery O2 Flow Rate FiO2 10/21/16 13:23 97 Nasal Cannula 2.00 10/21/16 11:00 97.7 73 20 130/69 Intake and Output 10/20/16 10/20/16 10/21/16 08:00 16:00 00:00 Intake Total 240 ml Output Total 300 ml Balance -60 ml Result Diagram: 10/21/16 0529 10/21/16 0529 Other Results Laboratory Tests Test 10/21/16 06:44 Blood Gas Puncture Site LT RADIAL Blood Gas Patient Temperature 98.6 Blood Gas HCO3 22 mmol/L (22-26) Blood Gas Base Excess -2.2 mmol/L (-2-2) Blood Gas Oxygen Saturation 95 % (90-100) Arterial Blood pH 7.37 (7.380-7.420) Arterial Blood Partial 40 mmHg (38-42) Pressure CO2 Arterial Blood Partial 110 mmHg Pressure O2 (61-120) Arterial Blood Oxygen Content 13.4 Vol % (12.0-20.0) Arterial Blood 2.0 % (0-4) Carboxyhemoglobin Arterial Blood Methemoglobin 1.1 % (0-2) Blood Gas Hemoglobin 9.9 G/DL (12.0-16.0) Oxygen Delivery Device NASAL CANNULA Blood Gas Liter Flow 2 L/M Objective Remarks GENERAL: Well-nourished, well-developed patient. SKIN: Warm and dry. HEAD: Normocephalic. EYES: No scleral icterus. No injection or drainage. NECK: , trachea midline. no JVD CARDIOVASCULAR: normal rate, regular rhythm. sinus by tele. RESPIRATORY: unlabored. equal chest rise. No accessory muscle use. GASTROINTESTINAL: Abdomen soft, non-tender, nondistended. MUSCULOSKELETAL: No cyanosis, or edema. EXTREMITIES: No clubbing cyanosis or edema NEURO: awake, alert, RASS 0., follows commands. A/P Assessment and Plan Thoracic aneurysm - CT chest without contrast without any sense of active extravasation - per Dr. Pérez, plan for TEVAR tomorrow. Coumadin Coagulopathy - Reverse Coumadin coagulopathy with K Centra given low EF and concern for volume overload. - will bridge with heparin drip and plan to turn off at 0400 tomorrow in preparation for lumbar drain placement. Hypertension - Continue metoprolol - Hold Valsartan due to impaired renal function - Hold Furosemide - We'll use Lopressor when necessary to keep SBP less than 130 Coronary artery disease - EKGs and serial troponins, downtrending, will stop trending. Congestive heart failure (15%) - Hold ARBs due to worsening renal function in in need of IV contrast - Hold diuretics as above Chronic renal insufficiency - Avoid nephrotoxin Metabolic Alkalosis - hold sodium bicarb in the setting of worsening alkalosis. DVT GI prophylaxis - Teds SCDs heparin drip - Heart healthy diet, NPO at midnight. Lines: - patient has poor vascular access given Marfan's and history of healthcare associations. will place triple lumen catheter in preparation for OR tomorrow and for vascular access. will also place radial arterial line in preparation. Dispo: remain in the ICU. Jonnie Holman MD October 21, 2016 15:07
[2016-10-21 16:11] LABS: INTERNATIONAL NORMALIZED RATIO 2.4 RATIO
--- NOTE | 2016-10-21 17:16 | RADRPT ---
EXAM DATE/TIME: 10/21/2016 16:54 [facility] COMPARISON: No previous studies available for comparison. INDICATIONS : Central line placement. MEDICAL HISTORY : Cardiovascular disease. Chronic obstructive pulmonary disease. CVA. SURGICAL HISTORY : Hernia repair. Aortic valve replacement. ENCOUNTER: Initial ACUITY: 1 day PAIN SCORE: Non-responsive. LOCATION: Bilateral chest FINDINGS: A single portable frontal view of the chest shows the thoracic and the graft. Prosthetic aortic valve . Heart is mildly enlarged. Elevation of the left hemidiaphragm with left lower lobe consolidation. R ight-sided central line. Tip is at the mid right atrial level. No pneumothorax. No effusions. Median sternotomy wires. CONCLUSION: 1. Central line in good position without pneumothorax. 2. Left basilar atelectasis versus infiltrate. 3. Cardiomegaly. James Alvarado Jr., MD on October 21, 2016 at 17:13 Board Certified Radiologist. This report was verified electronically.
[2016-10-21] MEDS ORDERED: HEPARIN-D5W INJ 250 ML IV SCH (18:00)
[2016-10-21 18:18] LABS: APTT (PATIENT) 30.6 SEC (24.3-30.1); INTERNATIONAL NORMALIZED RATIO 1.2 RATIO
--- NOTE | 2016-10-21 19:28 | PD.PROCEDR ---
Procedure Note Procedure Central Line Procedure Note Right IJ 7 Citizen [place] 20 cm triple lumen catheter Diagnosis: Thoracic aortic aneurysm Indications: Need for central pressure monitoring and need for highly potent vasoactive substances perioperatively for thoracic aortic aneurysm repair Consent: Written consent was obtained Anesthesia: 1% lidocaine locally Description of the Procedure: The patient was placed in the supine, mild- Trendelenburg position. The area was prepped and draped sterilely. A 19g needle was inserted under negative pressure aspiration and dark venous blood was obtained. A guidewire was inserted easily without resistance. A small incision was made using a #11 blade. Using a modified Seldinger technique, the dilator and 7 Citizen [place], 20 cm catheter were advanced over the guidewire without resistance. All ports were aspirated and flushed, and had brisk blood return. The line was secured at 18 cm at the skin using 2-0 silk interrupted sutures. A Biopatch and Transparent sterile dressing were applied. There were no immediate complications noted. There was minimal EBL. The patient tolerated the procedure well. Ultrasound Guidance: Ultrasound guidance was used to identify the right internal jugular vein. The vascular anatomy of the right anterior neck was normal. The vessel was cannulated under direct, real-time ultrasound visualization. After placement of the guidewire, confirmation of the guidewire in the lumen of the vessel was made using ultrasound visualization, before dilation of the tract. A Chest x-ray has been ordered. I personally performed the procedure. Jonnie Holman MD October 21, 2016 19:28
--- NOTE | 2016-10-21 19:30 | PD.PROCEDR ---
Procedure Note Procedure Procedure: Arterial Line Placement Right radial arterial line Diagnosis: Thoracic aortic aneurysm Indications: Need for beat to beat hemodynamic monitoring perioperatively and a thoracic aortic aneurysmal repair Consent: Verbal consent was obtained Description of the Procedure: The right wrist was prepped and draped sterilely. 1% lidocaine was used for local anesthesia. The pulse was located and a needle was advanced into the artery. A 20 gauge, 12 cm catheter was advanced into the artery using a modified Seldinger technique. The catheter was sutured to the skin and a sterile dressing was applied. The catheter was connected to a pressure transducer and an arterial waveform was noted. There were no immediate complications noted. There was minimal EBL. Ultrasound guidance: Ultrasound guidance was used real-time for this procedure. The right radial artery was identified under ultrasound. The vascular anatomy of the right wrist was normal. Under direct real-time visualization, the needle was advanced into the right radial artery. I personally performed the procedure. Jonnie Holman MD October 21, 2016 19:30
[2016-10-21] MEDS ORDERED: EPINEPHrine HCL (1:10,000) 1 MG/10 ML SYRINGE ONE (20:04)
[2016-10-21] MEDS ORDERED: ATROPINE SULFATE 1 MG/10 ML SYRINGE ONE (20:04)
[2016-10-21] MEDS ORDERED: IODIXANOL 320 MG/ML 10 ML VIAL (for Rad CT) IV ONE (20:30)
--- NOTE | 2016-10-21 23:10 | RADRPT ---
EXAM DATE/TIME: 10/21/2016 20:19 This report includes an Addendum and supersedes previous reports for this exam. [facility] COMPARISON: No previous studies available for comparison. INDICATIONS : Evaluate for anuersym. IV CONTRAST: 75 cc Visipaque (iodixanol) IV ORAL CONTRAST: No oral contrast ingested. RADIATION DOSE: 15.35 CTDIvol (mGy) MEDICAL HISTORY : Cerebrovascular disease. Cardiovascular disease SURGICAL HISTORY : None. ENCOUNTER: Initial ACUITY: 1 day PAIN SCALE: 0/10 LOCATION: abdomen TECHNIQUE: Volumetric scanning was performed using a multi-row detector CT scanner. The data was post processed with a variety of visualization algorithms including full volume maximum intensity projection, multi -planar sliding thin slab reformation, curved planar reformation, and surface rendering techniques. Using automated exposure control and adjustment of the mA and/or kV according to patient size, radiat ion dose was kept as low as reasonably achievable to obtain optimal diagnostic quality images. FINDINGS: There is a 1.4 cm nodule in the left lower lobe. Malignancy is not excluded. PET/CT scan is recommend ed to further evaluation if clinically indicated. The liver and spleen are normal in size and no foca l defects are identified. The gallbladder and pancreas are unremarkable. No intrahepatic or extrahepa tic ductal dilatation is seen. The adrenal glands are unremarkable. There numerous bilateral renal cy sts characteristic with a polycystic kidney disease. There is diverticulosis without evidence of dive rticulitis. The prostate gland is moderately enlarged impinging on the bladder base. The aorta is normal in caliber. There is no evidence of aneurysm or dissection. The celiac artery shital gin is patent. There is greater than 80% stenosis at the origin of superior mesenteric artery. There are 3 right and 2 left renal arteries. On the left these arteries are codominant with the more inferi or vessel demonstrating greater than 80% stenosis. The There is high-grade stenosis involving the right external iliac artery without segmental occlusion. O n the left side there is high-grade stenosis of the junction of the left external iliac and common fe moral artery. CONCLUSION: 1. Adult polycystic kidney disease 2. High-grade stenosis involving the external iliac bilaterally is worse on the left than on the righ t 3. 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 4. No evidence of aneurysm José Miguel Barajas MD on October 21, 2016 at 23:01 Board Certified Radiologist. This report was verified electronically. ADDENDUM: There is a 1.4 symmetr nodule the left lower lobe. Malignancy is not excluded. PET/CT scan is recomme nded to further evaluation if clinically indicated. José Miguel Barajas MD on October 22, 2016 at 1:59 Board Certified Radiologist. This report was verified electronically.
[2016-10-22] VITALS (17 sets, daily range): BP systolic 126–166; BP diastolic 40–84; PULSE 59–76; RESP 12–18; TEMP 97.3–98.1; O2SAT 96–99
[2016-10-22] MEDS: METOPROLOL TARTRATE 5 MG/5 ML VIAL IV PUSH PRN (02:34)
[2016-10-22] MEDS: RESP: ALBUTEROL 2.5 MG/IPRATROPIUM 0.5 MG NEB (SCH) NEB ×4 (04:00→22:00)
[2016-10-22] MEDS: LORazepam 0.5 MG TAB PO PRN (04:22)
[2016-10-22 04:49] LABS: APTT (PATIENT) 41.2 SEC (24.3-30.1); INTERNATIONAL NORMALIZED RATIO 1.2 RATIO; PROTHROMBIN TIME - PATIENT 13.4 SEC (9.8-11.6)
[2016-10-22 05:03] LABS: HEMATOCRIT 33.3 % (39.0-51.0); MEAN CELL VOLUME 81.6 FL (80.0-100.0); MEAN CORPUSCULAR HEMOGLOBIN 25.2 PG (27.0-34.0); MEAN CORPUSCULAR HGB CONC 30.9 % (32.0-36.0); PLATELET COUNT 231 TH/MM3 (150-450); RED BLOOD COUNT 4.08 MIL/MM3 (4.50-5.90); RED CELL DISTRIBUTION WIDTH 15.7 % (11.6-17.2); REVIEW FLAG FINAL; WHITE BLOOD COUNT 8.8 TH/MM3 (4.0-11.0)
[2016-10-22 05:10] LABS: BICARBONATE 26.5 MEQ/L (21.0-32.0)
--- NOTE | 2016-10-22 05:44 | PD.VS.PN ---
Pre-operative Note Pre-operative diagnosis: Distal aortic pseudoaneurysm Planned procedure: TEVAR Interval History: Pt adm with back pain, getting hydrated and plan for TEVAR Labs: Laboratory Results Test 10/22/16 04:28 White Blood Count 8.8 TH/MM3 (4.0-11.0) Red Blood Count 4.08 MIL/MM3 (4.50-5.90) Hemoglobin 10.3 GM/DL (13.0-17.0) Hematocrit 33.3 % (39.0-51.0) Mean Corpuscular Volume 81.6 FL (80.0-100.0) Mean Corpuscular Hemoglobin 25.2 PG (27.0-34.0) Mean Corpuscular Hemoglobin 30.9 % Concent (32.0-36.0) Red Cell Distribution Width 15.7 % (11.6-17.2) Platelet Count 231 TH/MM3 (150-450) Mean Platelet Volume 8.1 FL (7.0-11.0) Prothromb Time International 1.2 RATIO Ratio Sodium Level 143 MEQ/L (136-145) Potassium Level 4.0 MEQ/L (3.5-5.1) Chloride Level 108 MEQ/L (98-107) Carbon Dioxide Level 26.5 MEQ/L (21.0-32.0) Anion Gap 9 MEQ/L (5-15) Blood Urea Nitrogen 57 MG/DL (7-18) Random Glucose 111 MG/DL (74-106) Calcium Level 8.9 MG/DL (8.5-10.1) Blood: T&S Imaging: Last Impressions Chest X-Ray 10/21/16 0000 Signed Impressions: Service Date/Time: Friday, October 21, 2016 16:54 - CONCLUSION: 1. Central line in good position without pneumothorax. 2. Left basilar atelectasis versus infiltrate. 3. Cardiomegaly. James Alvarado Jr., MD Abdomen/Pelvis CT 10/21/16 0000 Signed Impressions: Service Date/Time: Friday, October 21, 2016 20:19 - CONCLUSION: 1. Adult polycystic kidney disease 2. High-grade stenosis involving the external iliac bilaterally is worse on the left than on the right 3. 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 4. No evidence of aneurysm José Miguel Barajas MD ADDENDUM: There is a 1.4 symmetr nodule the left lower lobe. Malignancy is not excluded. PET/CT scan is recommended to further evaluation if clinically indicated. José Miguel Barajas MD Chest CT 10/20/16 0000 Signed Impressions: Service Date/Time: Thursday, October 20, 2016 21:01 - CONCLUSION: 1. Aortic stent graft present extending from the root to the diaphragmatic hiatus. There is an aneurysm sac of the descending thoracic aorta with somewhat heterogeneous attenuation contents and also a focally saccular configuration as described above. Endoleak and/or hematoma within the aneurysm sac possible. I don't see any extraluminal collections or inflammatory changes. There is no mediastinal hematoma. If patient's renal function can tolerate it, CT aortogram is suggested. 2. Patchy infiltrate and atelectasis of the left lung base. There is chronic appearing volume loss. Patient has old left rib fractures. 3. Left ventricular dilatation and coronary artery calcification noted. Yan Barrera MD Orders: NPO after MN hep gtt off at 0600 in preparation for spinal drain spinal drain by IR at 0800 OR at 1000 Clindamycin 900 mg IV OCTOR Post-operative destination: CVICU Operative site marked: No (N/A) Consent: Informed consent has been obtained from Amrik Nagy Jr. I have explained the procedure in detail and discussed the risks, benefits, and potential complications. All questions have been answered. Darryl Préez MD October 22, 2016 05:44
[2016-10-22] MEDS: PCA - TOTAL MG MORPHINE DELIVERED PER SHIFT SCH ×3 (06:00→21:30)
[2016-10-22] MEDS ORDERED: fentaNYL CITRATE 250 MCG/5 ML AMP ONE ×2 (07:51→15:05)
[2016-10-22] MEDS ORDERED: PROTAMINE SULFATE 50 MG/5 ML VIAL ONE ×2 (07:51→09:19)
[2016-10-22] MEDS ORDERED: MIDAZOLAM HCL 5 MG/5 ML VIAL ONE (07:51)
[2016-10-22] MEDS ORDERED: LEVOFLOXACIN 500 MG PREMIX INJ 100 ML IV ONE (08:15)
--- NOTE | 2016-10-22 08:30 | PD.RAD ---
Post Procedure Progress Note Pre Procedure Diagnosis: (1) Thoracic aortic aneurysm without rupture Post Procedure Diagnosis: (1) Thoracic aortic aneurysm without rupture Procedure Date: October 22, 2016 Supervising Radiologist: Elton Pollock Anesthesia: Local, Conscious Sedation Plan of Activity Patient to Unit: ROPU Patient Condition: Good Additional Comments: Pre -op lumbar drain placed without difficulty single puncture at L4/L5. Clear csf returning. Catheter tip at T10. Full dictated report to follow See PACS Report for procedural detail/treatment Elton Pollock MD October 22, 2016 08:30
[2016-10-22] MEDS: METOPROLOL TARTRATE 50 MG TAB PO SCH (09:00)
[2016-10-22] MEDS: NICOTINE 21 MG/24 HR PATCH T-DERMAL SCH (09:00)
[2016-10-22] MEDS: CHOLECALCIFEROL (VIT D3) 1000 UNIT TAB PO SCH (09:00)
[2016-10-22] MEDS: ACETYLCYSTEINE 20% 6,000 MG/30 ML ORAL SOLN VIAL PO SCH ×2 (09:00→21:00)
[2016-10-22] MEDS: ASPIRIN 81 MG CHEW TAB PO SCH (09:00)
[2016-10-22] MEDS: FAMOTIDINE 20 MG TAB PO SCH (09:00)
[2016-10-22] MEDS: PHYTONADIONE 5 MG TAB PO SCH (09:00)
[2016-10-22] MEDS ORDERED: HEPARIN SODIUM - IV 10,000 UNITS/10 ML VIAL ONE (09:18)
[2016-10-22] MEDS ORDERED: THROMBIN (TOPICAL) 20,000 UNIT VIAL ONE (09:18)
[2016-10-22] MEDS ORDERED: HEPARIN SODIUM - SQ 10,000 UNITS/ML VIAL ONE (09:18)
--- NOTE | 2016-10-22 09:50 | RADRPT ---
EXAM DATE/TIME: 10/22/2016 08:09 [facility] COMPARISON: No previous studies available for comparison. INDICATIONS : Patient having TEVAR. Lumbar drain needed Preop MEDICAL HISTORY : 1. Distal aortic pseudoaneurysm 2.HTN 3. CHF 4. Marfans syndrome 5. CAD 6. CRI SURGIAL HISTORY : 1. AVR ascending root 2. L C -SC TEVAR 3. Rt gland excision ENCOUNTER: Initial ACUITY: 2 days PAIN SCORE: 3/10 Right shoulder LUMBAR PUNCTURE TIME: 0819 hours FLUORO TIME: 2.9 minutes IMAGE SERIES: 1 SEDATION TIME: 30 minutes LEVEL: Tip of lumbar drain was placed at T10 MEDICATION(S): 1.) 3 mg midazolam (Versed) IV 2.) 150 mcg fentanyl (Sublimaze) IV 3.) 500 mg levofloxacin (Levaquin) IV 4.) 10 mg Protamine IV Intra-procedural antibiotics were given as prescribed above. DEVICE(S): 1.) 5 Lao lumbar drain catheter PROCEDURE : 1. Fluoroscopically guided lumbar drain placement. 2. Conscious sedation with continuous EKG and oximetry monitoring. The risks, benefits and alternatives to the procedure were explained and verbal and written consent w as obtained. The site was prepped in sterile fashion. Full sterile technique was used, including ca p, mask, sterile gloves and gown and a large sterile sheet. Hand hygiene and 2% chlorhexidine and/or betadine/alcohol prep was utilized per protocol for cutaneous antisepsis. The skin and subcutaneous tissues were infiltrated with local anesthetic solution. With fluoroscopic guidance the lumbar thecal sac was punctured with a 14 gauge Touhy needle and a lum bar drain was placed with its tip at the level of the inferior endplate of T10 and the catheter was s utured in place. CSF was identified returning from the catheter at the termination of the procedure. Conscious sedation was performed with the prescribed dosages and duration as above in the presence of an independent trained radiology nurse to assist in the monitoring of the patient. EKG and oximetry remained stable throughout the procedure. The patient tolerated the procedure well and there were n o complications. The patient was sent to post anesthesia recovery in stable condition. CONCLUSION: Uncomplicated lumbar drain placement as above. Elton Pollock MD on October 22, 2016 at 9:47 Board Certified Radiologist. This report was verified electronically.
[2016-10-22] MEDS ORDERED: MIDAZOLAM HCL 5 MG/ML VIAL (1 ML) ONE (10:03)
[2016-10-22] MEDS ORDERED: PHENYLEPHRINE HCL 10 MG/ML VIAL ONE (10:04)
[2016-10-22] MEDS ORDERED: CLINDAMYCIN INJ 900 MG in SODIUM CHLORIDE 0.9% INJ 100 ML IV SCH (10:45)
[2016-10-22] MEDS ORDERED: IODIXANOL 320 MG/ML 50 ML VIAL (for RAD SPEC) I-ARTERIAL ONE (11:44)
[2016-10-22] MEDS ORDERED: ETOMIDATE 20 MG/10 ML VIAL IV PUSH ONE (12:00)
[2016-10-22] MEDS ORDERED: IODIXANOL 320 MG/ML 50 ML VIAL (for Cath Lab) ONE (12:00)
[2016-10-22] MEDS ORDERED: NEOSTIGMINE 3 MG/3 ML SYR IV ONE (12:00)
[2016-10-22] MEDS ORDERED: SODIUM CHLORID 0.9% 500 ML INJ 500 ML IV ONE (12:00)
[2016-10-22] MEDS ORDERED: ePHEDrine/NS 25 MG/5 ML SYR IV ONE (12:00)
[2016-10-22] MEDS ORDERED: HEPARIN SODIUM - IV 10,000 UNITS/10 ML VIAL IV ONE ×2 (12:05→12:27)
[2016-10-22] MEDS ORDERED: IOHEXOL 300 MG/ML 50 ML BTL (for RAD DIAG) OTHER ONE (13:10)
--- NOTE | 2016-10-22 13:45 | HHI.CCPN ---
Subjective Remarks/Hospital Course 61 year old very pleasant gentleman with Marfan's syndrome who in 1998 underwent aortic valve replacement - root due to ascending aortic aneurysm. He was doing well but then in 2007 had chest pain and shortness of breath and was seen at [facility] and underwent L C-SC bypass with TAVR, and was discharged in December 2008. He has had chronic SOB since then but over the last few weeks it has worsened and he was admitted to outside hospital on . A CT scan suggested he has an aneurysm or pseudoaneurysm and he was transferred here for higher level of care. 10/21: doing well this morning. pain better controlled. becoming alkalotic on sodium bicarb infusion. Cr slightly downtrended. Subjective: 10/22: Afebrile. Planning IR for lumbar drain today perforation for TEVAR. Currently nothing by mouth. No other complaints. Creatinine trending downward Objective Vital Signs Date Time Temp Pulse Resp B/P Pulse Ox O2 Delivery O2 Flow Rate FiO2 10/22/16 09:59 97 Nasal Cannula 2.00 10/22/16 09:26 97.7 61 12 126/51 Intake and Output 10/21/16 10/21/16 10/22/16 08:00 16:00 00:00 Intake Total 310 ml 578 ml Output Total 600 ml 1025 ml Balance -290 ml -447 ml Result Diagram: 10/22/16 0428 10/22/16 0428 Imaging Last Impressions Lumbar Puncture Fluoroscopy 10/22/16 0600 Signed Impressions: Service Date/Time: Saturday, October 22, 2016 08:09 - CONCLUSION: Uncomplicated lumbar drain placement as above. Elton Pollock MD Chest X-Ray 10/21/16 0000 Signed Impressions: Service Date/Time: Friday, October 21, 2016 16:54 - CONCLUSION: 1. Central line in good position without pneumothorax. 2. Left basilar atelectasis versus infiltrate. 3. Cardiomegaly. James Alvarado Jr., MD Abdomen/Pelvis CT 10/21/16 0000 Signed Impressions: Service Date/Time: Friday, October 21, 2016 20:19 - CONCLUSION: 1. Adult polycystic kidney disease 2. High-grade stenosis involving the external iliac bilaterally is worse on the left than on the right 3. 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 4. No evidence of aneurysm José Miguel Barajas MD ADDENDUM: There is a 1.4 symmetr nodule the left lower lobe. Malignancy is not excluded. PET/CT scan is recommended to further evaluation if clinically indicated. José Miguel Barajas MD Chest CT 10/20/16 0000 Signed Impressions: Service Date/Time: Thursday, October 20, 2016 21:01 - CONCLUSION: 1. Aortic stent graft present extending from the root to the diaphragmatic hiatus. There is an aneurysm sac of the descending thoracic aorta with somewhat heterogeneous attenuation contents and also a focally saccular configuration as described above. Endoleak and/or hematoma within the aneurysm sac possible. I don't see any extraluminal collections or inflammatory changes. There is no mediastinal hematoma. If patient's renal function can tolerate it, CT aortogram is suggested. 2. Patchy infiltrate and atelectasis of the left lung base. There is chronic appearing volume loss. Patient has old left rib fractures. 3. Left ventricular dilatation and coronary artery calcification noted. Yan Barrera MD Objective Remarks GENERAL: 61-year-old male, resting in bed in no acute distress SKIN: Warm and dry. Prior left subclavian scar well-healed HEAD: Atraumatic. Normocephalic. Elongated Facies EYES: Pupils equal and round around 3 m bilaterally and reactive. No scleral icterus. No injection or drainage. ENT: No nasal bleeding or discharge. Mucous membranes pink and moist. NECK: Trachea midline. No JVD. CARDIOVASCULAR: Regular rate and rhythm. Positive click RESPIRATORY: No accessory muscle use. Clear to auscultation. Breath sounds equal bilaterally. GASTROINTESTINAL: Abdomen soft, non-tender, nondistended. Hypoactive bowel sounds MUSCULOSKELETAL: Extremities with elongated extremities are short torso NEUROLOGICAL: Awake and alert. No obvious cranial nerve deficits. Motor grossly within normal limits. Five out of 5 muscle strength in the arms and legs. Normal speech. PSYCHIATRIC: Appropriate mood and affect; insight and judgment normal. Vascular Central Line Catheter: Yes Date of Insertion: October 21, 2016 Line: Central Venous Catheter Side: Left Location: Internal, Jugular A/P Assessment and Plan Neuro/Psych: Morphine NATURAL DEVELOPER for pain management CV: Thoracic aortic aneurysm PVD - 80% stenosis SMA, bilateral external iliac artery stenosis Coronary artery disease Chronic systolic heart failure L SC TEVAR [address] chest revealed adult polycystic kidney disease, external iliac stenosis left greater than right, SMA 80 percent stenosed and a left lower lung nodule 1.[address] abdomen/pelvis revealed dense graft from the root to the diaphragm the aorta , ascending thoracic aorta with aneurysm without leakage. Old left rib fractures. Clonic diverticulosis. Echocardiogram revealed EF 20-25%. Akinesis inferior septum. Hypokinesis anterior septal wall. Moderate MR. Mild AR On metoprolol 100 mg by mouth twice a day and aspirin 81 mg daily. Holding Diovan 40 mg daily Lasix 40 mg IV twice a day Resp: Old left rib fractures Left lower lobe nodule 1.4 cm - PET scan recommended outpatient Nasal cannula to maintain saturations greater than equal to 92%. Currently 2 L Duo nebs every 6/every 2 when necessary dyspnea Nicotine patch 21 mg daily GI: Colonic diverticulosis Patient is currently nothing by mouth : Dotson if indicated for accurate I's and O's in a critically ill patient Endo: Sliding scale insulin if indicated to maintain euglycemia Renal: APCKD Acute on chronic kidney injury unknown baseline History of nephrolithiasis Creatinine currently 2.3 Received bicarbonate drip 1 L and Mucomyst 4 dosages Heme: Normocytic anemia Warfarin coagulopathy S/p vit k 5 mg and KCentra. INR 4.1 on admit Hep gtt off (INR < 2) for OR Follow-up CBC in AM. ID: Clindamycin 900 mg IV 1 preop MSK: PT evaluate and treat FEN: Replace electrolytes as clinically indicated Access - Left IJ CVL day #2 - Left radial arterial line day #2 Prophylaxis - Heparin drip currently off Critical Care: The total critical care time was 45 minutes. Time to perform other separately billable procedures was not included in the critical care time. Christiano Ayala MD October 22, 2016 13:44 Congestive heart failure (15%) - Hold ARBs due to worsening renal function in in need of IV contrast - Hold diuretics as above Chronic renal insufficiency - Avoid nephrotoxin Metabolic Alkalosis - hold sodium bicarb in the setting of worsening alkalosis. DVT GI prophylaxis - Teds SCDs heparin drip - Heart healthy diet, NPO at midnight. Lines: - patient has poor vascular access given Marfan's and history of healthcare associations. will place triple lumen catheter in preparation for OR tomorrow and for vascular access. will also place radial arterial line in preparation. Dispo: remain in the ICU. Christiano Ayala MD October 22, 2016 13:44
--- NOTE | 2016-10-22 14:30 | HHI.PR ---
Immediate Post Op Note Procedure Date: October 22, 2016 Pre Op Diagnosis: 1. thoracic aortic pseudoaneurysm 2. PAD Post Op Diagnosis: 1. thoracic aortic pseudoaneurysm 2. PAD Surgeon: Darryl Pérez Automation Developer(s): none Procedure: 1. R iliofemoral TEA w/ patch angioplasty 2. L EIA AUTO SERVICE WRITER 3. U/S guided access to L INSOLE TOE SNIPPING MACHINE OPERATOR 4. TEVAR ([id number]) 5. IVUS of aorta, R ELLIE, EIA 6. R ELLIE stent (9x40 Protege) 7. R EIA stent (8x60 Protege) 8. L INSOLE TOE SNIPPING MACHINE OPERATOR Angioseal Findings: occlusive disease in groin successful extension of TEVAR without obvious endoleak after TEVAR Additional Information: spinal drain working entire case Complications: none apparent Specimen(s) removed: R INSOLE TOE SNIPPING MACHINE OPERATOR plaque - not for pathology Estimated blood loss: 50mL Anesthesia: General Drains: None Fluids: 900 mL x'oid IVF Patient to: Other ([facility]) Patient Condition: Good Implant/Devices: SEE IMPLANT LOG (if applicable) Darryl Pérez MD October 22, 2016 14:30
[2016-10-22] MEDS: SODIUM CHLOR 0.9% 1000 ML INJ 1,000 ML IV SCH (15:41)
[2016-10-22 15:56] LABS: MEAN CELL VOLUME 80.6 FL (80.0-100.0); MEAN CORPUSCULAR HEMOGLOBIN 26.5 PG (27.0-34.0); MEAN CORPUSCULAR HGB CONC 32.9 % (32.0-36.0); PLATELET COUNT 207 TH/MM3 (150-450); RED BLOOD COUNT 3.59 MIL/MM3 (4.50-5.90); RED CELL DISTRIBUTION WIDTH 15.4 % (11.6-17.2); REVIEW FLAG FINAL; WHITE BLOOD COUNT 10.7 TH/MM3 (4.0-11.0)
[2016-10-22 16:25] LABS: BICARBONATE 24.1 MEQ/L (21.0-32.0)
[2016-10-22] MEDS: MORPHINE SULFATE 30 MG/30 ML PCA IV SCH (23:40)
[2016-10-23] VITALS (17 sets, daily range): BP systolic 124–184; BP diastolic 42–81; PULSE 8–95; RESP 16–18; TEMP 97.7–99.5; O2SAT 92–99
[2016-10-23] MEDS: RESP: ALBUTEROL 2.5 MG/IPRATROPIUM 0.5 MG NEB (SCH) NEB ×4 (03:00→21:21)
[2016-10-23] MEDS: SODIUM CHLOR 0.9% 1000 ML INJ 1,000 ML IV SCH (03:14)
[2016-10-23] MEDS: LORazepam 0.5 MG TAB PO PRN (03:17)
[2016-10-23 05:05] LABS: HEMATOCRIT 29.9 % (39.0-51.0); MEAN CORPUSCULAR HEMOGLOBIN 25.2 PG (27.0-34.0); MEAN CORPUSCULAR HGB CONC 31.1 % (32.0-36.0); PLATELET COUNT 194 TH/MM3 (150-450); RED BLOOD COUNT 3.69 MIL/MM3 (4.50-5.90); RED CELL DISTRIBUTION WIDTH 15.5 % (11.6-17.2); REVIEW FLAG FINAL; WHITE BLOOD COUNT 11.2 TH/MM3 (4.0-11.0)
[2016-10-23 05:22] LABS: APTT (PATIENT) 28.9 SEC (24.3-30.1); INTERNATIONAL NORMALIZED RATIO 1.2 RATIO; PROTHROMBIN TIME - PATIENT 13.3 SEC (9.8-11.6)
[2016-10-23 05:25] LABS: BICARBONATE 23.9 MEQ/L (21.0-32.0); POTASSIUM 4.1 MEQ/L (3.5-5.1)
[2016-10-23] MEDS: PCA - TOTAL MG MORPHINE DELIVERED PER SHIFT SCH ×3 (06:00→22:00)
--- NOTE | 2016-10-23 07:09 | HHI.CCPN ---
Subjective Remarks/Hospital Course 61 year old very pleasant gentleman with Marfan's syndrome who in 1998 underwent aortic valve replacement - root due to ascending aortic aneurysm. He was doing well but then in 2007 had chest pain and shortness of breath and was seen at [facility] and underwent L C-SC bypass with TAVR, and was discharged in December 2008. He has had chronic SOB since then but over the last few weeks it has worsened and he was admitted to outside hospital on . A CT scan suggested he has an aneurysm or pseudoaneurysm and he was transferred here for higher level of care. 10/21: doing well this morning. pain better controlled. becoming alkalotic on sodium bicarb infusion. Cr slightly downtrended. 10/22: Afebrile. Planning IR for lumbar drain today perforation for TEVAR. Currently nothing by mouth. No other complaints. Creatinine trending downward Subjective: 10/23: Afebrile. Successful extension of TEVAR yesterday. Episodic pain resulting in hypertension currently resolved with morphine STATE MANAGER and benzodiazepine as needed. Complaining of thirst at the present time. Objective Vital Signs Date Time Temp Pulse Resp B/P Pulse Ox O2 Delivery O2 Flow Rate FiO2 10/23/16 06:00 8 16 142/67 98 151/48 10/23/16 04:00 98.1 10/23/16 03:59 Nasal Cannula 3.00 Intake and Output 10/22/16 10/22/16 10/23/16 08:00 16:00 00:00 Intake Total 1153 ml 45 ml 84 ml Output Total 720 ml 145 ml 147 ml Balance 433 ml -100 ml -63 ml Result Diagram: 10/23/16 0435 10/23/16 0435 Imaging Last Impressions Lumbar Puncture Fluoroscopy 10/22/16 0600 Signed Impressions: Service Date/Time: Saturday, October 22, 2016 08:09 - CONCLUSION: Uncomplicated lumbar drain placement as above. Elton Pololck MD Chest X-Ray 10/21/16 0000 Signed Impressions: Service Date/Time: Friday, October 21, 2016 16:54 - CONCLUSION: 1. Central line in good position without pneumothorax. 2. Left basilar atelectasis versus infiltrate. 3. Cardiomegaly. James Alvarado Jr., MD Abdomen/Pelvis CT 10/21/16 0000 Signed Impressions: Service Date/Time: Friday, October 21, 2016 20:19 - CONCLUSION: 1. Adult polycystic kidney disease 2. High-grade stenosis involving the external iliac bilaterally is worse on the left than on the right 3. 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 4. No evidence of aneurysm José Miguel Barajas MD ADDENDUM: There is a 1.4 symmetr nodule the left lower lobe. Malignancy is not excluded. PET/CT scan is recommended to further evaluation if clinically indicated. José Miguel Barajas MD Chest CT 10/20/16 0000 Signed Impressions: Service Date/Time: Thursday, October 20, 2016 21:01 - CONCLUSION: 1. Aortic stent graft present extending from the root to the diaphragmatic hiatus. There is an aneurysm sac of the descending thoracic aorta with somewhat heterogeneous attenuation contents and also a focally saccular configuration as described above. Endoleak and/or hematoma within the aneurysm sac possible. I don't see any extraluminal collections or inflammatory changes. There is no mediastinal hematoma. If patient's renal function can tolerate it, CT aortogram is suggested. 2. Patchy infiltrate and atelectasis of the left lung base. There is chronic appearing volume loss. Patient has old left rib fractures. 3. Left ventricular dilatation and coronary artery calcification noted. Yan Barrera MD Objective Remarks GENERAL: 61-year-old male, resting in bed in no acute distress SKIN: Warm and dry. Prior left subclavian scar well-healed HEAD: Atraumatic. Normocephalic. Elongated Facies EYES: Pupils equal and round around 3 m bilaterally and reactive. No scleral icterus. No injection or drainage. ENT: No nasal bleeding or discharge. Mucous membranes pink and moist. NECK: Trachea midline. No JVD. CARDIOVASCULAR: Regular rate and rhythm. Positive click RESPIRATORY: No accessory muscle use. Clear to auscultation. Breath sounds equal bilaterally. GASTROINTESTINAL: Abdomen soft, non-tender, nondistended. Hypoactive bowel sounds MUSCULOSKELETAL: Extremities with elongated extremities are short torso NEUROLOGICAL: Awake and alert. No obvious cranial nerve deficits. Motor grossly within normal limits. Five out of 5 muscle strength in the arms and legs. Normal speech. PSYCHIATRIC: Appropriate mood and affect; insight and judgment normal. 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 R iliofemoral TEA w/ patch angioplasty, L EIA WORSHIP DIRECTOR, U/S guided access to L DAIRY POWDER MIXER OPERATOR, TEVAR ([id number]), IVUS of aorta, R ELLIE, EIA, R ELLIE stent (9x40 Protege), R EIA stent (8x60 Protege) L DAIRY POWDER MIXER OPERATOR Angioseal secondary to occlusive disease in groin with successful extension of TEVAR without obvious endoleak after TEVAR CT chest revealed adult polycystic kidney disease, external iliac stenosis left greater than right, SMA 80 percent stenosed and a left lower lung nodule 1.[address] abdomen/pelvis revealed dense graft from the root to the diaphragm the aorta , ascending thoracic aorta with aneurysm without leakage. Old left rib fractures. Clonic diverticulosis. Echocardiogram revealed EF 20-25%. Akinesis inferior septum. Hypokinesis anterior septal wall. Moderate MR. Mild AR On metoprolol 100 mg by mouth twice a day and aspirin 81 mg daily. Holding Diovan 40 mg daily Lasix 40 mg IV twice a day Lumbar drain with 3 cc overnight Resp: Old left rib fractures Left lower lobe nodule 1.4 cm - PET scan recommended outpatient Nasal cannula to maintain saturations greater than equal to 92%. Currently 3 L Duo nebs every 6/every 2 when necessary dyspnea Nicotine patch 21 mg daily GI: Colonic diverticulosis Patient is currently nothing by mouth. Advance diet per surgery : Dotson if indicated for accurate I's and O's in a critically ill patient Endo: Sliding scale insulin if indicated to maintain euglycemia Renal: APCKD Acute on chronic kidney injury unknown baseline History of nephrolithiasis Creatinine currently 2.1 with downward trend Received bicarbonate drip 1 L and Mucomyst 4 dosages Heme: Leukocytosis Normocytic anemia Warfarin coagulopathy - resolved S/p vit k 5 mg and KCentra. INR 4.1 on admit Hep gtt off (INR < 2) for OR Follow-up CBC in AM. ID: Clindamycin 900 mg IV 1 preop Monitor for infection MSK: PT evaluate and treat On vitamin D3 1000 units daily FEN: Replace electrolytes as clinically indicated Access - Left IJ CVL day #3 - Left radial arterial line day #3 Prophylaxis - Heparin drip currently off. Resume pharmacological prophylaxis with vascular surgery Critical Care: The total critical care time was 35 minutes. Time to perform other separately billable procedures was not included in the critical care time. Christiano Ayala MD October 23, 2016 07:09
--- NOTE | 2016-10-23 08:40 | PD.VS.PN ---
Subjective POD #: 1 Procedure(s): TEVAR, R groin reconstruction; iliac stents Subjective/Hospital Course Doing well this morning, neuro intact. c/o being thirsty pain controlled Feet feel good Objective Vitals/I&O Date Time Temp Pulse Resp B/P Pulse Ox O2 Delivery O2 Flow Rate FiO2 10/23/16 07:00 97 Nasal Cannula 3.00 10/23/16 07:00 98.6 87 18 157/72 97 130/42 10/23/16 06:00 8 16 142/67 98 151/48 10/23/16 06:00 16 10/23/16 06:00 16 10/23/16 05:00 89 16 129/62 93 142/48 10/23/16 04:10 86 10/23/16 04:00 98.1 89 16 132/69 97 145/49 10/23/16 03:59 92 Nasal Cannula 3.00 10/23/16 03:00 81 16 169/81 93 184/63 10/23/16 02:00 81 16 145/55 95 169/55 10/23/16 01:00 77 16 142/69 96 157/52 10/23/16 00:00 99 Nasal Cannula 2.00 10/23/16 00:00 97.7 78 16 146/74 97 159/53 10/22/16 23:45 16 10/22/16 23:40 16 10/22/16 23:00 76 16 140/69 96 158/52 10/22/16 23:00 76 10/22/16 22:00 16 10/22/16 22:00 96 Nasal Cannula 2.00 10/22/16 22:00 74 16 137/68 97 158/54 10/22/16 21:30 16 10/22/16 21:00 99 Nasal Cannula 2.00 10/22/16 21:00 72 16 137/66 99 154/56 10/22/16 20:00 97.8 70 16 143/69 98 166/56 10/22/16 20:00 76 10/22/16 19:00 71 16 148/53 99 10/22/16 19:00 99 Nasal Cannula 3.00 10/22/16 19:00 70 16 134/68 99 147/51 10/22/16 18:02 74 16 151/60 98 10/22/16 17:06 71 18 147/49 97 10/22/16 15:43 66 14 134/40 99 10/22/16 15:40 99 Nasal Cannula 4.00 10/22/16 15:38 73 10/22/16 15:18 97.3 72 14 131/63 99 139/43 10/22/16 09:59 97 Nasal Cannula 2.00 10/22/16 09:26 97.7 61 12 126/51 96 10/23/16 10/23/16 10/23/16 07:00 15:00 23:00 Intake Total 762 ml Output Total 831 ml Balance -69 ml Exam: R groin soft Neuro intact Strong Doppler signals and feet are warm Laboratory Laboratory Tests Test 10/22/16 10/23/16 15:15 04:35 White Blood Count 10.7 11.2 Red Blood Count 3.59 3.69 Hemoglobin 9.5 9.3 Hematocrit 29.0 29.9 Mean Corpuscular Volume 80.6 81.0 Mean Corpuscular Hemoglobin 26.5 25.2 Mean Corpuscular Hemoglobin 32.9 31.1 Concent Red Cell Distribution Width 15.4 15.5 Platelet Count 207 194 Mean Platelet Volume 7.7 7.7 Sodium Level 144 145 Potassium Level 4.0 4.1 Chloride Level 112 113 Carbon Dioxide Level 24.1 23.9 Anion Gap 8 8 Blood Urea Nitrogen 57 43 Creatinine 2.24 2.13 Estimat Glomerular Filtration 30 32 Rate Random Glucose 106 95 Calcium Level 8.5 8.6 Prothrombin Time 13.3 Prothromb Time International 1.2 Ratio Activated Partial 28.9 Thromboplast Time Assessment and Plan Plan Complicated cardiovascular history - Marfan's, AVR/ascending and then L C-SC/ TEVAR; now s/p TEVAR extension, R groin reconstruction, R iliac stents, L EIA LUMBER PLANER 1. premissive hypertension (SBP 140-180) 2. Clamp spinal drain at 1200 but continue neuro checks; anticipate spinal drain removal tomorrow morning if neuro intact, then resume anticoagulation 3. Dotson, BR until spinal drain out 4. Reg diet Darryl Pérez MD FACS corsage maker [facility] at [facility] Darryl Pérez MD October 23, 2016 08:40
[2016-10-23] MEDS: METOPROLOL TARTRATE 5 MG/5 ML VIAL IV PUSH PRN ×2 (08:54→18:05)
--- NOTE | 2016-10-23 09:18 | MP ---
cc: SHYANNE PÉREZ MD DATE OF SURGERY 10/22/2016 PREOPERATIVE DIAGNOSIS 1. Thoracic aortic pseudoaneurysm 2. Peripheral arterial occlusive disease POSTOPERATIVE DIAGNOSIS 1. Thoracic aortic pseudoaneurysm 2. Peripheral arterial occlusive disease PLANNED PROCEDURE 1. Right iliofemoral thromboendarterectomy with patch angioplasty 2. Left external iliac artery angioplasty. 3. Ultrasound guided access to the left common femoral artery. 4. Thoracic intravascular aortic stent not involving the left subclavian artery with a Cook Zenith Alpha (36-32 tapered x 161) graft 5. Intravascular ultrasound of the aorta. 6. Intravascular ultrasound of the right common iliac artery. 7. Intravascular ultrasound of the external iliac artery. 8. Right common iliac artery stent (9 x 40 Protege). 9. Right external iliac artery stent (8 x 60 Protege). 10. Left common femoral artery Angio-Seal. ATTENDING SURGEON Shyanne Pérez MD RESIDENT SURGEON None ANESTHESIA General INDICATIONS Mr. Nagy is a gentleman who has a previous aortic replacement including a root and a valve and he had intrathoracic aortic repair. He presented with several days of back pain and a CT suggested pseudoaneurysm of the distal anastomosis. He was taken to the operating room for urgent repair. Intraoperatively, it was found he had profound peripheral occlusive disease sitting in a groin reconstruction and iliac stenting. DESCRIPTION OF PROCEDURE Informed consent was obtained from the patient. He was taken to the operating room, placed supine on the operating room table and an appropriate time out was taken to ensure the patient's identify, the operative site and planned procedure. He received 900 mg of Clindamycin. This will be discontinued after the initial preoperative dose. Clindamycin was chosen because of the patient's penicillin and Vancomycin allergies. Everyone in the room agreed with the time out and we proceeded. He was prepped from his nipples to his toes. Under ultrasonographic guidance, a 21 gauge Micropuncture needle was used to access the left common femoral artery. This was exchanged using Seldinger technique for a micropuncture sheath through which a 0.035 Glidewire was inserted through the micropuncture sheath and exchanged for a 5 Martiniquais sheath and the Storq wire was then placed. The patient's right common femoral was then interrogated with ultrasound and it was decided it was to diseased to access percutaneously and as such a vertical incision was made in the patient's right groin and carried down through the subcutaneous tissue with electrocautery and the common femoral artery was identified and dissected free down to the profunda, SFA and external iliac artery. The patient was systemically heparinized and it was felt the remainder of the case the ACT was kept >250 with additional boluses of heparin. The external iliac artery was clamped with a Profunda clamp and the superficial femoral and profunda femoral arteries were clamped with profunda clamps. A longitudinal arteriotomy was made with an 11 blade, extended with Ru scissors and the artery was endarterectomized without difficulty. Bovine pericardial patch was brought up onto the field and sewn to the patch using running 5-0 Prolene suture. The patch was noted to be hemostatic, the patch was accessed with a 29 gauge micropuncture needle and exchanged using Seldinger technique through the micropuncture sheath through which a 0.035 Storq wire was inserted through the micropuncture sheath and exchanged for a 5 and an 8 Martiniquais sheath. The Storq wire was advanced to the aorta with some difficulty and we then advanced the Storq to the ascending aorta. Over the left 5 Martiniquais access, the Stork wire was placed into the ascending aorta and over the left hand side a pigtail catheter was placed. On the right hand side through the 8 Martiniquais sheath, which was through the patch, the Stork was exchanged for a Lunderquist wire and then an intravascular ultrasound was obtained. The images of the intravascular ultrasound showed the stent graft in good position. The distal aspect of the stent graft as well as the celiac SMA in both renal arteries. There was significant dissection of the common iliac and external iliac arteries. The IVUS catheter was removed after confirming the size and the size picked was a Cook Zenith Alpha tapered 36-32 x 161 graft. The IVUS catheter was removed. The 8 Martiniquais sheath was removed. Manual pressure was held on the patch for hemostasis. Wicho dilators were used to dilate the skin and subcutaneous tissue and the graft was inserted and deployed so that it extended the previous Endograft by several centimeters. A CODA balloon was then used to balloon the proximal and distal ends, as well as the junctions. An angiography had been performed to depict the exact location of the presumed pseudoaneurysm. The pigtail catheter on the left hand side was untrapped and then removed and the groin was closed with Angio-Seal on the left. The delivery system was removed from the right hand side and the delivery sheath was exchanged for an 18 Martiniquais sheath and an angiogram of the iliac artery was obtained. The decision was made to stent the common iliac artery and external iliac artery due to the extent of dissection and a 9 x 40 and an 8 x 60 Protege stents were placed in the common and external iliac arteries respectively and post-dilated to 8 mm. Completion angiograms showed excellent results with recoil or extravasation. The wire, catheter and sheath were removed. The profunda clamps used to clamp proximal and distal on the patch and the patchotomy was closed with a series of 5-0 Prolene sutures. There was a nice palpable pulse in the distal common femoral artery, profunda and SFA and Doppler signals in both feet. The heparin was reversed with Protamine and the right groin wound was closed with 2-0 pledgeted Polysorb and 4-0 Monocryl. Sponge and needle counts were correct at the end of the case. I was present and scrubbed to perform the entire procedure. MD DEONNA Connell/ANAM /8:28 PM /8:37 AM [id number]
[2016-10-23] MEDS: FAMOTIDINE 20 MG TAB PO SCH (09:23)
[2016-10-23] MEDS: PHYTONADIONE 5 MG TAB PO SCH (09:23)
[2016-10-23] MEDS: CHOLECALCIFEROL (VIT D3) 1000 UNIT TAB PO SCH (09:23)
[2016-10-23] MEDS: ASPIRIN 81 MG CHEW TAB PO SCH (09:23)
[2016-10-23] MEDS: NICOTINE 21 MG/24 HR PATCH T-DERMAL SCH (09:23)
[2016-10-23] MEDS: MORPHINE SULFATE 30 MG/30 ML PCA IV SCH (21:57)
[2016-10-24] VITALS (10 sets, daily range): BP systolic 122–156; BP diastolic 53–79; PULSE 96–117; RESP 18; TEMP 98.1–99; O2SAT 96–98
[2016-10-24] MEDS: SODIUM CHLOR 0.9% 1000 ML INJ 1,000 ML IV SCH (03:10)
[2016-10-24] MEDS: RESP: ALBUTEROL 2.5 MG/IPRATROPIUM 0.5 MG NEB (SCH) NEB ×4 (04:13→21:56)
[2016-10-24 05:03] LABS: HEMATOCRIT 28.2 % (39.0-51.0); MEAN CELL VOLUME 81.3 FL (80.0-100.0); MEAN CORPUSCULAR HEMOGLOBIN 25.4 PG (27.0-34.0); MEAN CORPUSCULAR HGB CONC 31.2 % (32.0-36.0); PLATELET COUNT 171 TH/MM3 (150-450); RED BLOOD COUNT 3.46 MIL/MM3 (4.50-5.90); RED CELL DISTRIBUTION WIDTH 15.5 % (11.6-17.2); REVIEW FLAG FINAL; WHITE BLOOD COUNT 12.1 TH/MM3 (4.0-11.0)
[2016-10-24 05:15] LABS: APTT (PATIENT) 36.6 SEC (24.3-30.1); INTERNATIONAL NORMALIZED RATIO 1.2 RATIO; PROTHROMBIN TIME - PATIENT 12.9 SEC (9.8-11.6)
[2016-10-24 05:34] LABS: BICARBONATE 24.3 MEQ/L (21.0-32.0); POTASSIUM 4.2 MEQ/L (3.5-5.1)
[2016-10-24] MEDS: PCA - TOTAL MG MORPHINE DELIVERED PER SHIFT SCH (06:00)
[2016-10-24] MEDS: ASPIRIN 81 MG CHEW TAB PO SCH (08:40)
[2016-10-24] MEDS: FAMOTIDINE 20 MG TAB PO SCH (08:40)
[2016-10-24] MEDS: CHOLECALCIFEROL (VIT D3) 1000 UNIT TAB PO SCH (08:40)
[2016-10-24] MEDS: NICOTINE 21 MG/24 HR PATCH T-DERMAL SCH (08:41)
[2016-10-24] MEDS: MORPHINE SULFATE 30 MG/30 ML PCA IV SCH (08:42)
--- NOTE | 2016-10-24 08:48 | PD.VS.PN ---
Subjective POD #: 2 Procedure(s): TEVAR, R groin reconstruction; iliac stents Subjective/Hospital Course Doing well this morning, neuro intact. anisha diet pain controlled Feet feel good Objective Vitals/I&O Date Time Temp Pulse Resp B/P Pulse Ox O2 Delivery O2 Flow Rate FiO2 10/24/16 08:42 18 10/24/16 06:22 18 10/24/16 06:00 18 10/24/16 04:00 96 10/24/16 03:12 98 Nasal Cannula 2.00 10/24/16 03:00 98.6 108 18 122/63 98 10/24/16 00:00 99.0 102 18 143/77 97 10/24/16 00:00 97 Nasal Cannula 2.00 10/23/16 23:40 95 10/23/16 22:05 18 10/23/16 22:00 16 10/23/16 22:00 16 10/23/16 21:57 16 10/23/16 21:22 99 Nasal Cannula 2.00 10/23/16 20:00 93 10/23/16 20:00 99.5 93 16 124/66 96 Arterial Line 10/23/16 19:00 99 Nasal Cannula 2.00 10/23/16 15:00 94 Nasal Cannula 2.00 10/23/16 15:00 98.8 89 18 132/62 94 154/51 10/23/16 15:00 89 10/23/16 14:00 18 10/23/16 14:00 18 10/23/16 11:00 97 Nasal Cannula 1.00 10/23/16 11:00 92 10/23/16 11:00 98.7 92 18 156/56 92 142/69 10/24/16 10/24/16 10/24/16 07:00 15:00 23:00 Intake Total 1123 ml Output Total 600 ml Balance 523 ml Exam: Neuro intact including B LE Abd soft, NT R groin VAC in place Pulses: + Doppler signals Laboratory Laboratory Tests Test 10/24/16 04:45 White Blood Count 12.1 Red Blood Count 3.46 Hemoglobin 8.8 Hematocrit 28.2 Mean Corpuscular Volume 81.3 Mean Corpuscular Hemoglobin 25.4 Mean Corpuscular Hemoglobin 31.2 Concent Red Cell Distribution Width 15.5 Platelet Count 171 Mean Platelet Volume 7.5 Prothrombin Time 12.9 Prothromb Time International 1.2 Ratio Activated Partial 36.6 Thromboplast Time Sodium Level 141 Potassium Level 4.2 Chloride Level 110 Carbon Dioxide Level 24.3 Anion Gap 7 Blood Urea Nitrogen 32 Creatinine 2.16 Estimat Glomerular Filtration 31 Rate Random Glucose 101 Calcium Level 8.7 Assessment and Plan Plan Complicated cardiovascular history - Marfan's, AVR/ascending and then L C-SC/ TEVAR; now s/p TEVAR extension, R groin reconstruction, R iliac stents, L EIA CLEARANCE CUTTER 1. continue premissive hypertension (SBP 140-180) and will hold home antihypertensive agents for now 2. d/c spinal drain - IR 3. OOB TC, [place] out 4h after spinal drain out 4. resume hep gtt 4h after spinal drain out 5. Restart coumadin tonight 6. HL IVF and change DIRECTOR OF OCCUPATIONAL HEALTH to po meds Darryl Pérez MD FACS felt pad cutter [facility] Darryl Pérez MD October 24, 2016 08:48
[2016-10-24] MEDS ORDERED: DO NOT ADM ANY ANTICOAGULANT DRUGS OTHER PRN (09:15)
--- NOTE | 2016-10-24 10:06 | PD.RAD ---
Radiology Note POD #2 S/P endograft repair for TAA. Lumbar drain removed with difficulty. Pt tolerated removal well full dictated report to follow. Elton Pollock MD October 24, 2016 10:06
[2016-10-24 11:37] LABS: APTT (PATIENT) 35.5 SEC (24.3-30.1); INTERNATIONAL NORMALIZED RATIO 1.2 RATIO; PROTHROMBIN TIME - PATIENT 12.8 SEC (9.8-11.6)
--- NOTE | 2016-10-24 13:00 | HHI.CCPN ---
Subjective Remarks/Hospital Course 61 year old very pleasant gentleman with Marfan's syndrome who in 1998 underwent aortic valve replacement - root due to ascending aortic aneurysm. He was doing well but then in 2007 had chest pain and shortness of breath and was seen at [facility] and underwent L C-SC bypass with TAVR, and was discharged in December 2008. He has had chronic SOB since then but over the last few weeks it has worsened and he was admitted to outside hospital on . A CT scan suggested he has an aneurysm or pseudoaneurysm and he was transferred here for higher level of care. 10/21: doing well this morning. pain better controlled. becoming alkalotic on sodium bicarb infusion. Cr slightly downtrended. 10/22: Afebrile. Planning IR for lumbar drain today perforation for TEVAR. Currently nothing by mouth. No other complaints. Creatinine trending downward Subjective: 10/23: Afebrile. Successful extension of TEVAR yesterday. Episodic pain resulting in hypertension currently resolved with morphine TELECASTING ENGINEER and benzodiazepine as needed. Complaining of thirst at the present time. 10/24 No acute events overnight. Awake and alert. Lumbar drain d/[place] today by IR. Objective Vital Signs Date Time Temp Pulse Resp B/P Pulse Ox O2 Delivery O2 Flow Rate FiO2 10/24/16 11:00 98 10/24/16 11:00 98.3 18 122/64 97 10/24/16 11:00 Nasal Cannula 2.00 Intake and Output 10/23/16 10/23/16 10/24/16 08:00 16:00 00:00 Intake Total 762 ml 1682 ml Output Total 831 ml 700 ml Balance -69 ml 982 ml Result Diagram: 10/24/16 0445 10/24/16 0445 Other Results Laboratory Tests Test 10/24/16 10/24/16 04:45 11:05 White Blood Count 12.1 TH/MM3 Red Blood Count 3.46 MIL/MM3 Hemoglobin 8.8 GM/DL Hematocrit 28.2 % Mean Corpuscular Volume 81.3 FL Mean Corpuscular Hemoglobin 25.4 PG Mean Corpuscular Hemoglobin 31.2 % Concent Red Cell Distribution Width 15.5 % Platelet Count 171 TH/MM3 Mean Platelet Volume 7.5 FL Prothrombin Time 12.9 SEC 12.8 SEC Prothromb Time International 1.2 RATIO 1.2 RATIO Ratio Activated Partial 36.6 SEC 35.5 SEC Thromboplast Time Sodium Level 141 MEQ/L Potassium Level 4.2 MEQ/L Chloride Level 110 MEQ/L Carbon Dioxide Level 24.3 MEQ/L Anion Gap 7 MEQ/L Blood Urea Nitrogen 32 MG/DL Creatinine 2.16 MG/DL Estimat Glomerular Filtration 31 ML/MIN Rate Random Glucose 101 MG/DL Calcium Level 8.7 MG/DL Imaging Last Impressions Lumbar Puncture Fluoroscopy 10/22/16 0600 Signed Impressions: Service Date/Time: Saturday, October 22, 2016 08:09 - CONCLUSION: Uncomplicated lumbar drain placement as above. Elton Pollock MD Chest X-Ray 10/21/16 0000 Signed Impressions: Service Date/Time: Friday, October 21, 2016 16:54 - CONCLUSION: 1. Central line in good position without pneumothorax. 2. Left basilar atelectasis versus infiltrate. 3. Cardiomegaly. James Alvarado Jr., MD Abdomen/Pelvis CT 10/21/16 0000 Signed Impressions: Service Date/Time: Friday, October 21, 2016 20:19 - CONCLUSION: 1. Adult polycystic kidney disease 2. High-grade stenosis involving the external iliac bilaterally is worse on the left than on the right 3. 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 4. No evidence of aneurysm José Miguel Barajas MD ADDENDUM: There is a 1.4 symmetr nodule the left lower lobe. Malignancy is not excluded. PET/CT scan is recommended to further evaluation if clinically indicated. José Miguel Barajas MD Chest CT 10/20/16 0000 Signed Impressions: Service Date/Time: Thursday, October 20, 2016 21:01 - CONCLUSION: 1. Aortic stent graft present extending from the root to the diaphragmatic hiatus. There is an aneurysm sac of the descending thoracic aorta with somewhat heterogeneous attenuation contents and also a focally saccular configuration as described above. Endoleak and/or hematoma within the aneurysm sac possible. I don't see any extraluminal collections or inflammatory changes. There is no mediastinal hematoma. If patient's renal function can tolerate it, CT aortogram is suggested. 2. Patchy infiltrate and atelectasis of the left lung base. There is chronic appearing volume loss. Patient has old left rib fractures. 3. Left ventricular dilatation and coronary artery calcification noted. Yan Barrera MD Objective Remarks GENERAL: 61-year-old male, resting in bed in no acute distress SKIN: Warm and dry. Prior left subclavian scar well-healed HEAD: Atraumatic. Normocephalic. Elongated Facies EYES: Pupils equal and round around 3 m bilaterally and reactive. No scleral icterus. No injection or drainage. ENT: No nasal bleeding or discharge. Mucous membranes pink and moist. NECK: Trachea midline. No JVD. CARDIOVASCULAR: Regular rate and rhythm. Positive click RESPIRATORY: No accessory muscle use. Clear to auscultation. Breath sounds equal bilaterally. GASTROINTESTINAL: Abdomen soft, non-tender, nondistended. Hypoactive bowel sounds MUSCULOSKELETAL: Extremities with elongated extremities are short torso NEUROLOGICAL: Awake and alert. No obvious cranial nerve deficits. Motor grossly within normal limits. Five out of 5 muscle strength in the arms and legs. Normal speech. PSYCHIATRIC: Appropriate mood and affect; insight and judgment normal. Date of Insertion: October 21, 2016 Line: Central Venous Catheter Side: Left Location: Internal, Jugular A/P Assessment and Plan Neuro/Psych: On Oxycodone 5mg PO Q4hrs PRN pain CV: Thoracic aortic aneurysm PVD - 80% stenosis SMA, bilateral external iliac artery stenosis Coronary artery disease Chronic systolic heart failure L SC TEVAR 2007 Hypertension Monitor HR and BP keep MAP>65mmHg Continue permissive hypertension (SBP 140-180) per vascular. Lumbar drain d/camden by IR today. s/p R iliofemoral TEA w/ patch angioplasty, L EIA CHAMBER MAGISTRATE, U/S guided access to L FAMILY AND DIVORCE LEGAL ASSISTANT, TEVAR ([phone]), IVUS of aorta, R ELLIE, EIA, R ELLIE stent (9x40 Protege), R EIA stent (8x60 Protege) L FAMILY AND DIVORCE LEGAL ASSISTANT Angioseal secondary to occlusive disease in groin with successful extension of TEVAR without obvious endoleak after TEVAR CT chest revealed adult polycystic kidney disease, external iliac stenosis left greater than right, SMA 80 percent stenosed and a left lower lung nodule 1.[address] abdomen/pelvis revealed dense graft from the root to the diaphragm the aorta , ascending thoracic aorta with aneurysm without leakage. Old left rib fractures. Clonic diverticulosis. Echocardiogram revealed EF 20-25%. Akinesis inferior septum. Hypokinesis anterior septal wall. Moderate MR. Mild AR Resp: Old left rib fractures Left lower lobe nodule 1.4 cm - PET scan recommended outpatient Continue with oxygen keep sat > 92%. Duo nebs every 6/every 2 when necessary dyspnea Nicotine patch 21 mg daily GI: Colonic diverticulosis On PO diet Endo: Sliding scale insulin if indicated to maintain euglycemia Renal: APCKD Acute on chronic kidney injury unknown baseline History of nephrolithiasis Monitor renal function, I/O's, avoid nephrotoxins Cr: 2.16 today Heme: Leukocytosis Normocytic anemia Warfarin coagulopathy - resolved Monitor CBC and Coags- on Heparin drip, Coumadin resumed today ID: Monitor CBC and for signs of infections ( Fever, WBC) MSK: PT evaluate and treat On vitamin D3 1000 units daily Access - Left IJ CVL day #3 Prophylaxis - Heparin drip currently off. Resume 4hrs after lumbar drain is d/camden per vascular surgery Level 3 Scott Torres MD October 24, 2016 13:00
[2016-10-24] MEDS: HEPARIN-D5W INJ 250 ML IV SCH (14:30)
--- NOTE | 2016-10-24 14:51 | RADRPT ---
EXAM DATE/TIME: 10/24/2016 12:00 [place] COMPARISON : INDICATIONS : Lumbar drain removal The patient is lumbar drain was removed without difficulty. Sterile dressing was applied. The patient tolerated this procedure well. IMPRESSION: Uncomplicated removal of the patient's lumbar drain. Elton Pollock MD on October 24, 2016 at 14:48 Board Certified Radiologist. This report was verified electronically.
[2016-10-24] MEDS: WARFARIN SOD 5 MG TAB PO SCH (15:54)
[2016-10-24 21:55] LABS: APTT (PATIENT) 60.2 SEC (24.3-30.1)
[2016-10-25] VITALS (11 sets, daily range): BP systolic 101–125; BP diastolic 55–71; PULSE 82–110; RESP 16–20; TEMP 98.2–99; O2SAT 94–99
[2016-10-25 04:11] LABS: HEMATOCRIT 26.8 % (39.0-51.0); MEAN CELL VOLUME 80.9 FL (80.0-100.0); MEAN CORPUSCULAR HEMOGLOBIN 25.7 PG (27.0-34.0); MEAN CORPUSCULAR HGB CONC 31.7 % (32.0-36.0); PLATELET COUNT 158 TH/MM3 (150-450); RED BLOOD COUNT 3.32 MIL/MM3 (4.50-5.90); RED CELL DISTRIBUTION WIDTH 15.7 % (11.6-17.2); REVIEW FLAG FINAL; WHITE BLOOD COUNT 10.9 TH/MM3 (4.0-11.0)
[2016-10-25] MEDS: HEPARIN-D5W INJ 250 ML IV SCH ×2 (04:13→20:46)
[2016-10-25 04:38] LABS: BICARBONATE 24.6 MEQ/L (21.0-32.0); POTASSIUM 4.1 MEQ/L (3.5-5.1)
[2016-10-25 04:40] LABS: APTT (PATIENT) 81.2 SEC (24.3-30.1); INTERNATIONAL NORMALIZED RATIO 1.1 RATIO; PROTHROMBIN TIME - PATIENT 12.3 SEC (9.8-11.6)
--- NOTE | 2016-10-25 07:22 | HHI.CCPN ---
Subjective Remarks/Hospital Course 61 year old very pleasant gentleman with Marfan's syndrome who in 1998 underwent aortic valve replacement - root due to ascending aortic aneurysm. He was doing well but then in 2007 had chest pain and shortness of breath and was seen at [facility] and underwent L C-SC bypass with TAVR, and was discharged in December 2008. He has had chronic SOB since then but over the last few weeks it has worsened and he was admitted to outside hospital on . A CT scan suggested he has an aneurysm or pseudoaneurysm and he was transferred here for higher level of care. 10/21: doing well this morning. pain better controlled. becoming alkalotic on sodium bicarb infusion. Cr slightly downtrended. 10/22: Afebrile. Planning IR for lumbar drain today perforation for TEVAR. Currently nothing by mouth. No other complaints. Creatinine trending downward 10/23: Afebrile. Successful extension of TEVAR yesterday. 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 Complaining of thirst at the present time. 10/24 No acute events overnight. Awake and alert. Lumbar drain d/cam[place] today by IR. Subjective: 10/25: Afebrile. Currently requesting pain medication. Complaining of burning pain in right knee. 2 L nasal care. No bowel movement since admission. Heparin drip resumed last Coumadin restarted. Objective Vital Signs Date Time Temp Pulse Resp B/P Pulse Ox O2 Delivery O2 Flow Rate FiO2 10/25/16 04:00 98.4 90 20 124/69 94 10/25/16 04:00 Nasal Cannula 2.00 Intake and Output 10/24/16 10/24/16 10/25/16 08:00 16:00 00:00 Intake Total 1123 ml 1244 ml Output Total 600 ml 500 ml Balance 523 ml 744 ml Result Diagram: 10/25/16 0400 10/25/16 0400 Imaging Last Impressions Lumbar Puncture Fluoroscopy 10/22/16 0600 Signed Impressions: Service Date/Time: Saturday, October 22, 2016 08:09 - CONCLUSION: Uncomplicated lumbar drain placement as above. Elton Pollock MD Chest X-Ray 10/21/16 0000 Signed Impressions: Service Date/Time: Friday, October 21, 2016 16:54 - CONCLUSION: 1. Central line in good position without pneumothorax. 2. Left basilar atelectasis versus infiltrate. 3. Cardiomegaly. James Alvarado Jr., MD Abdomen/Pelvis CT 10/21/16 0000 Signed Impressions: Service Date/Time: Friday, October 21, 2016 20:19 - CONCLUSION: 1. Adult polycystic kidney disease 2. High-grade stenosis involving the external iliac bilaterally is worse on the left than on the right 3. 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 4. No evidence of aneurysm José Miguel Barajas MD ADDENDUM: There is a 1.4 symmetr nodule the left lower lobe. Malignancy is not excluded. PET/CT scan is recommended to further evaluation if clinically indicated. José Miguel Barajas MD Chest CT 10/20/16 0000 Signed Impressions: Service Date/Time: Thursday, October 20, 2016 21:01 - CONCLUSION: 1. Aortic stent graft present extending from the root to the diaphragmatic hiatus. There is an aneurysm sac of the descending thoracic aorta with somewhat heterogeneous attenuation contents and also a focally saccular configuration as described above. Endoleak and/or hematoma within the aneurysm sac possible. I don't see any extraluminal collections or inflammatory changes. There is no mediastinal hematoma. If patient's renal function can tolerate it, CT aortogram is suggested. 2. Patchy infiltrate and atelectasis of the left lung base. There is chronic appearing volume loss. Patient has old left rib fractures. 3. Left ventricular dilatation and coronary artery calcification noted. aYn Barrera MD Objective Remarks GENERAL: 61-year-old male, resting in bed in no acute distress SKIN: Warm and dry. Prior left subclavian scar well-healed HEAD: Atraumatic. Normocephalic. Elongated Facies EYES: Pupils equal and round around 3 mm bilaterally and reactive. No scleral icterus. No injection or drainage. ENT: No nasal bleeding or discharge. Mucous membranes pink and moist. NECK: Trachea midline. No JVD. CARDIOVASCULAR: Tachycardic MR. Positive diastolic click RESPIRATORY: No accessory muscle use. Clear to auscultation. Breath sounds equal bilaterally. GASTROINTESTINAL: Abdomen soft, non-tender, nondistended. Hypoactive bowel sounds MUSCULOSKELETAL: Extremities with elongated extremities are short torso NEUROLOGICAL: Awake and alert. No obvious cranial nerve deficits. Motor grossly within normal limits. Five out of 5 muscle strength in the arms and legs. Normal speech. PSYCHIATRIC: Appropriate mood and affect; insight and judgment normal. Date of Insertion: October 21, 2016 Line: Central Venous Catheter Side: Left Location: Internal, Jugular A/P Assessment and Plan Neuro/Psych: On Oxycodone 5mg PO Q4hrs PRN pain On morphine 2 mg every 4 hours when necessary pain CV: Thoracic aortic aneurysm PVD - 80% stenosis SMA, bilateral external iliac artery stenosis Coronary artery disease Chronic systolic heart failure L SC TEVAR 2007 Hypertension Continue permissive hypertension (SBP 140-180) per vascular. Lumbar drain d/[place] by IR 10/24 s/p R iliofemoral TEA w/ patch angioplasty, L EIA ELECTRO OPTICAL ENGINEER, U/S guided access to L SEAFOOD TECHNOLOGY SPECIALIST, TEVAR ([phone]), IVUS of aorta, R ELLIE, EIA, R ELLIE stent (9x40 Protege), R EIA stent (8x60 Protege) L SEAFOOD TECHNOLOGY SPECIALIST Angioseal secondary to occlusive disease in groin with successful extension of TEVAR without obvious endoleak after TEVAR CT chest revealed adult polycystic kidney disease, external iliac stenosis left greater than right, SMA 80 percent stenosed and a left lower lung nodule 1.[address] abdomen/pelvis revealed dense graft from the root to the diaphragm the aorta , ascending thoracic aorta with aneurysm without leakage. Old left rib fractures. Clonic diverticulosis. Echocardiogram revealed EF 20-25%. Akinesis inferior septum. Hypokinesis anterior septal wall. Moderate MR. Mild AR Holding home medications Diovan 80 mg by mouth at bedtime Resp: Old left rib fractures Left lower lobe nodule 1.4 cm - PET scan recommended outpatient Continue with oxygen keep sat > 92%. Currently on 2 L Duo nebsevery 2 when necessary dyspnea Nicotine patch 21 mg daily GI: Colonic diverticulosis Constipation On PO diet No bowel regimen Colace/Senokot twice a day Endo: Sliding scale insulin if indicated to maintain euglycemia Renal: APCKD Acute on chronic kidney injury unknown baseline History of nephrolithiasis Monitor renal function, I/O's, avoid nephrotoxins Cr: 2.1 today Heme: Normocytic anemia Warfarin coagulopathy - resolved Monitor CBC and Coags- on Heparin drip restarted today, Coumadin resumed yesterday 5 mill grams daily ID: Monitor CBC and for signs of infections ( Fever, WBC) MSK: PT evaluate and treat On vitamin D3 1000 units daily Access - Left IJ CVL day #4 Prophylaxis - Heparin drip Level 3 Christiano Ayala MD October 25, 2016 07:22
[2016-10-25] MEDS: FAMOTIDINE 20 MG TAB PO SCH (07:55)
[2016-10-25] MEDS: ASPIRIN 81 MG CHEW TAB PO SCH (07:55)
[2016-10-25] MEDS: SENNOSIDES 8.6 MG TAB PO SCH ×2 (07:56→20:45)
[2016-10-25] MEDS: DOCUSATE SODIUM 100 MG CAP PO SCH ×2 (07:56→20:46)
[2016-10-25] MEDS: CHOLECALCIFEROL (VIT D3) 1000 UNIT TAB PO SCH (07:58)
[2016-10-25] MEDS: NICOTINE 21 MG/24 HR PATCH T-DERMAL SCH (08:00)
--- NOTE | 2016-10-25 10:57 | PD.VS.PN ---
Subjective Subjective/Hospital Course Patient without complaints. Objective Vitals/I&O Date Time Temp Pulse Resp B/P Pulse Ox O2 Delivery O2 Flow Rate FiO2 10/25/16 07:30 Nasal Cannula 2.00 10/25/16 07:30 99.0 92 18 123/66 98 10/25/16 04:00 98.4 90 20 124/69 94 10/25/16 04:00 94 Nasal Cannula 2.00 10/25/16 04:00 90 10/25/16 00:00 96 18 125/71 97 10/25/16 00:00 97 Nasal Cannula 2.00 10/25/16 00:00 96 10/24/16 21:55 96 Nasal Cannula 2.00 10/24/16 20:00 104 10/24/16 20:00 98.4 104 18 127/65 96 10/24/16 20:00 96 Nasal Cannula 2.00 10/24/16 15:00 103 10/24/16 15:00 96 Nasal Cannula 3.00 10/24/16 15:00 98.3 103 18 156/79 97 10/24/16 11:00 98 10/24/16 11:00 98.3 98 18 122/64 97 10/24/16 11:00 97 Nasal Cannula 2.00 10/25/16 10/25/16 10/25/16 07:00 15:00 23:00 Intake Total 435 ml Output Total 400 ml Balance 35 ml Physical Exam Motor intact bilateral lower extremity. Extremities warm. wound vac in place right groin. Laboratory Laboratory Tests Test 10/24/16 10/24/16 10/25/16 11:05 21:00 04:00 Prothrombin Time 12.8 12.3 Prothromb Time International 1.2 1.1 Ratio Activated Partial 35.5 60.2 81.2 Thromboplast Time White Blood Count 10.9 Red Blood Count 3.32 Hemoglobin 8.5 Hematocrit 26.8 Mean Corpuscular Volume 80.9 Mean Corpuscular Hemoglobin 25.7 Mean Corpuscular Hemoglobin 31.7 Concent Red Cell Distribution Width 15.7 Platelet Count 158 Mean Platelet Volume 7.7 Sodium Level 141 Potassium Level 4.1 Chloride Level 108 Carbon Dioxide Level 24.6 Anion Gap 8 Blood Urea Nitrogen 31 Creatinine 2.10 Estimat Glomerular Filtration 32 Rate Random Glucose 101 Calcium Level 9.1 Assessment and Plan Plan Complicated cardiovascular history - Marfan's, AVR/ascending and then L C-SC/ TEVAR; now s/p TEVAR extension, R groin reconstruction, R iliac stents, 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 OOB and ambulate with physical therapy. Gus Ashton DO, Gus Pina DO October 25, 2016 10:56
[2016-10-25 12:47] LABS: APTT (PATIENT) 60.6 SEC (24.3-30.1)
[2016-10-25] MEDS: WARFARIN SOD 5 MG TAB PO SCH (16:16)
[2016-10-25 19:03] LABS: APTT (PATIENT) 53.4 SEC (24.3-30.1)
[2016-10-26] VITALS (16 sets, daily range): BP systolic 99–135; BP diastolic 51–74; PULSE 75–100; RESP 16–20; TEMP 97.8–98.6; O2SAT 94–100
[2016-10-26 05:54] LABS: HEMATOCRIT 29.8 % (39.0-51.0); MEAN CELL VOLUME 80.6 FL (80.0-100.0); MEAN CORPUSCULAR HEMOGLOBIN 24.9 PG (27.0-34.0); MEAN CORPUSCULAR HGB CONC 30.9 % (32.0-36.0); PLATELET COUNT 195 TH/MM3 (150-450); RED CELL DISTRIBUTION WIDTH 15.8 % (11.6-17.2); WHITE BLOOD COUNT 8.7 TH/MM3 (4.0-11.0)
[2016-10-26 06:08] LABS: APTT (PATIENT) 49.4 SEC (24.3-30.1); INTERNATIONAL NORMALIZED RATIO 1.1 RATIO; PROTHROMBIN TIME - PATIENT 11.7 SEC (9.8-11.6)
[2016-10-26 06:12] LABS: REVIEW FLAG FINAL
[2016-10-26 06:20] LABS: BICARBONATE 23.6 MEQ/L (21.0-32.0); POTASSIUM 4.1 MEQ/L (3.5-5.1)
--- NOTE | 2016-10-26 07:25 | HHI.CCPN ---
Subjective Remarks/Hospital Course 61 year old very pleasant gentleman with Marfan's syndrome who in 1998 underwent aortic valve replacement - root due to ascending aortic aneurysm. He was doing well but then in 2007 had chest pain and shortness of breath and was seen at [facility] and underwent L C-SC bypass with TAVR, and was discharged in December 2008. He has had chronic SOB since then but over the last few weeks it has worsened and he was admitted to outside hospital on . A CT scan suggested he has an aneurysm or pseudoaneurysm and he was transferred here for higher level of care. 10/21: doing well this morning. pain better controlled. becoming alkalotic on sodium bicarb infusion. Cr slightly downtrended. 10/22: Afebrile. Planning IR for lumbar drain today perforation for TEVAR. Currently nothing by mouth. No other complaints. Creatinine trending downward 10/23: Afebrile. Successful extension of TEVAR yesterday. 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 Complaining of thirst at the present time. 10/24 No acute events overnight. Awake and alert. Lumbar drain d/camden today by IR. 10/25: Afebrile. Currently requesting pain medication. Complaining of burning pain in right knee. 2 L nasal care. No bowel movement since admission. Heparin drip resumed last Coumadin restarted. Subjective: 10/26: Afebrile. Resting in chair on 3 L nasal cannula. States knee pain much improved today. No bowel movement. Objective Vital Signs Date Time Temp Pulse Resp B/P Pulse Ox O2 Delivery O2 Flow Rate FiO2 10/26/16 04:00 86 10/26/16 04:00 96 Room Air 10/26/16 04:00 98.4 20 123/65 10/25/16 21:14 3.00 Intake and Output 10/25/16 10/25/16 10/26/16 08:00 16:00 00:00 Intake Total 435 ml 1005 ml Output Total 400 ml 475 ml Balance 35 ml 530 ml Result Diagram: 10/26/16 0531 10/26/16 0531 Imaging Last Impressions Lumbar Puncture Fluoroscopy 10/22/16 0600 Signed Impressions: Service Date/Time: Saturday, October 22, 2016 08:09 - CONCLUSION: Uncomplicated lumbar drain placement as above. Elton Pollock MD Chest X-Ray 10/21/16 0000 Signed Impressions: Service Date/Time: Friday, October 21, 2016 16:54 - CONCLUSION: 1. Central line in good position without pneumothorax. 2. Left basilar atelectasis versus infiltrate. 3. Cardiomegaly. James Alvarado Jr., MD Abdomen/Pelvis CT 10/21/16 0000 Signed Impressions: Service Date/Time: Friday, October 21, 2016 20:19 - CONCLUSION: 1. Adult polycystic kidney disease 2. High-grade stenosis involving the external iliac bilaterally is worse on the left than on the right 3. 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 4. No evidence of aneurysm José Miguel Barajas MD ADDENDUM: There is a 1.4 symmetr nodule the left lower lobe. Malignancy is not excluded. PET/CT scan is recommended to further evaluation if clinically indicated. José Miguel Barajas MD Chest CT 10/20/16 0000 Signed Impressions: Service Date/Time: Thursday, October 20, 2016 21:01 - CONCLUSION: 1. Aortic stent graft present extending from the root to the diaphragmatic hiatus. There is an aneurysm sac of the descending thoracic aorta with somewhat heterogeneous attenuation contents and also a focally saccular configuration as described above. Endoleak and/or hematoma within the aneurysm sac possible. I don't see any extraluminal collections or inflammatory changes. There is no mediastinal hematoma. If patient's renal function can tolerate it, CT aortogram is suggested. 2. Patchy infiltrate and atelectasis of the left lung base. There is chronic appearing volume loss. Patient has old left rib fractures. 3. Left ventricular dilatation and coronary artery calcification noted. Yan Barrera MD Objective Remarks GENERAL: 61-year-old male, resting in bed in no acute distress SKIN: Warm and dry. Prior left subclavian scar well-healed HEAD: Atraumatic. Normocephalic. Elongated Facies EYES: Pupils equal and round around 3 mm bilaterally and reactive. No scleral icterus. No injection or drainage. ENT: No nasal bleeding or discharge. Mucous membranes pink and moist. NECK: Trachea midline. No JVD. CARDIOVASCULAR: Tachycardic MR. Positive diastolic click RESPIRATORY: No accessory muscle use. Clear to auscultation. Breath sounds equal bilaterally. GASTROINTESTINAL: Abdomen soft, non-tender, nondistended. Hypoactive bowel sounds MUSCULOSKELETAL: Extremities with elongated extremities are short torso NEUROLOGICAL: Awake and alert. No obvious cranial nerve deficits. Motor grossly within normal limits. Five out of 5 muscle strength in the arms and legs. Normal speech. PSYCHIATRIC: Appropriate mood and affect; insight and judgment normal. Vascular Central Line Catheter: Yes Assessment to: Continue Date of Insertion: October 21, 2016 Line: Central Venous Catheter Side: Left Location: Internal, Jugular A/P Assessment and Plan Neuro/Psych: On Oxycodone 5mg PO Q4hrs PRN pain On morphine 2 mg every 4 hours when necessary pain CV: Thoracic aortic aneurysm PVD - 80% stenosis SMA, bilateral external iliac artery stenosis Coronary artery disease Chronic systolic heart failure L SC TEVAR 2007 Hypertension Continue permissive hypertension (SBP 140-180) per vascular. 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 Old left rib fractures. Clonic diverticulosis. Echocardiogram revealed EF 20-25%. Akinesis inferior septum. Hypokinesis anterior septal wall. Moderate MR. Mild AR Holding home medications Diovan 80 mg by mouth at bedtime to allow for permissive hypertension. Resume when clinically indicated Resp: Old left rib fractures Left lower lobe nodule 1.4 cm - PET scan recommended outpatient Continue with oxygen keep sat > 92%. Currently on 3 L Duonebs every 2 when necessary dyspnea Nicotine patch 21 mg daily GI: Colonic diverticulosis Constipation On PO diet Colace/Senokot twice a day MiraLAX, lactulose 1 today. As needed glycerin suppositories Endo: Sliding scale insulin if indicated to maintain euglycemia Renal: APCKD Acute on chronic kidney injury unknown baseline History of nephrolithiasis Monitor renal function, I/O's, avoid nephrotoxins Cr: 2.0 today Heme: Normocytic anemia Warfarin coagulopathy - resolved Monitor CBC and Coags- on Heparin drip restarted 10/24, Coumadin resumed 10/24 5 mill grams daily ID: Monitor CBC and for signs of infections ( Fever, WBC) MSK: PT evaluate and treat On vitamin D3 1000 units daily Access - Left IJ CVL day #5 Prophylaxis - Heparin drip /Coumadin Level 2 Per vascular note, okay to transfer to [facility] Christiano Ayala MD October 26, 2016 07:25
[2016-10-26] MEDS: FAMOTIDINE 20 MG TAB PO SCH (08:00)
[2016-10-26] MEDS: SENNOSIDES 8.6 MG TAB PO SCH ×2 (08:00→21:00)
[2016-10-26] MEDS ORDERED: POLYETHYLENE GLYCOL 17 GM PKG PO ONE (08:00)
[2016-10-26] MEDS ORDERED: LACTULOSE SYRUP 20 GM/30 ML CUP PO ONE (08:00)
[2016-10-26] MEDS: DOCUSATE SODIUM 100 MG CAP PO SCH ×2 (08:00→21:00)
[2016-10-26] MEDS ORDERED: GLYCERIN ADULT 2 GM SUPP RECTAL PRN (08:00)
[2016-10-26] MEDS: NICOTINE 21 MG/24 HR PATCH T-DERMAL SCH (08:00)
[2016-10-26] MEDS: ASPIRIN 81 MG CHEW TAB PO SCH (08:00)
[2016-10-26] MEDS: CHOLECALCIFEROL (VIT D3) 1000 UNIT TAB PO SCH (08:00)
--- NOTE | 2016-10-26 14:23 | PD.VS.PN ---
Subjective Subjective/Hospital Course Patient without complaints. ambulating in hallway. Objective Vitals/I&O Date Time Temp Pulse Resp B/P Pulse Ox O2 Delivery O2 Flow Rate FiO2 10/26/16 11:37 100 10/26/16 11:00 Nasal Cannula 1.00 10/26/16 11:00 98.6 96 18 130/71 98 10/26/16 07:45 Nasal Cannula 1.00 10/26/16 07:45 97.8 85 18 117/62 99 10/26/16 07:26 96 Nasal Cannula 3.00 10/26/16 07:00 80 10/26/16 04:00 86 10/26/16 04:00 96 Room Air 10/26/16 04:00 98.4 86 20 123/65 10/26/16 00:00 78 10/26/16 00:00 78 16 99/51 95 10/26/16 00:00 95 Room Air 10/25/16 21:14 96 Nasal Cannula 3.00 10/25/16 21:00 95 Room Air 10/25/16 20:00 98 Nasal Cannula 2.00 10/25/16 20:00 84 10/25/16 20:00 98.2 84 18 114/58 98 10/25/16 15:15 99 Nasal Cannula 2.00 10/25/16 15:15 98.2 82 16 101/55 99 10/25/16 15:00 90 10/26/16 10/26/16 10/26/16 06:59 14:59 22:59 Intake Total 650 ml Output Total 500 ml Balance 150 ml Physical Exam wound vac intact. extremities warm. Central line in place. Laboratory Laboratory Tests Test 10/25/16 10/26/16 18:30 05:31 Activated Partial 53.4 49.4 Thromboplast Time White Blood Count 8.7 Red Blood Count 3.70 Hemoglobin 9.2 Hematocrit 29.8 Mean Corpuscular Volume 80.6 Mean Corpuscular Hemoglobin 24.9 Mean Corpuscular Hemoglobin 30.9 Concent Red Cell Distribution Width 15.8 Platelet Count 195 Mean Platelet Volume 8.3 Prothrombin Time 11.7 Prothromb Time International 1.1 Ratio Sodium Level 141 Potassium Level 4.1 Chloride Level 108 Carbon Dioxide Level 23.6 Anion Gap 9 Blood Urea Nitrogen 37 Creatinine 2.36 Estimat Glomerular Filtration 28 Rate Random Glucose 97 Calcium Level 9.6 Assessment and Plan Plan Complicated cardiovascular history - Marfan's, AVR/ascending and then L C-SC/ TEVAR; now s/p TEVAR extension, R groin reconstruction, R iliac stents, 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 Transfer to [facility]. OOB and ambulate with physical therapy. DC central line. Gus Ashton DO, Gus Pina DO October 26, 2016 14:23
[2016-10-26] MEDS: WARFARIN SOD 5 MG TAB PO SCH (15:55)
[2016-10-27] VITALS (27 sets, daily range): BP systolic 112–149; BP diastolic 63–71; PULSE 78–101; RESP 16–19; TEMP 97.8–98.4; O2SAT 98–100
[2016-10-27] MEDS: HEPARIN-D5W INJ 250 ML IV SCH (05:59)
[2016-10-27 06:12] LABS: HEMATOCRIT 25.4 % (39.0-51.0); MEAN CELL VOLUME 80.2 FL (80.0-100.0); MEAN CORPUSCULAR HEMOGLOBIN 25.8 PG (27.0-34.0); MEAN CORPUSCULAR HGB CONC 32.2 % (32.0-36.0); PLATELET COUNT 198 TH/MM3 (150-450); RED BLOOD COUNT 3.17 MIL/MM3 (4.50-5.90); RED CELL DISTRIBUTION WIDTH 15.7 % (11.6-17.2); REVIEW FLAG FINAL; WHITE BLOOD COUNT 6.3 TH/MM3 (4.0-11.0)
[2016-10-27 06:25] LABS: APTT (PATIENT) 58.7 SEC (24.3-30.1); INTERNATIONAL NORMALIZED RATIO 1.2 RATIO; PROTHROMBIN TIME - PATIENT 13.3 SEC (9.8-11.6)
[2016-10-27 06:27] LABS: APTT (PATIENT) 57.8 SEC (24.3-30.1)
[2016-10-27 06:48] LABS: BICARBONATE 25.7 MEQ/L (21.0-32.0); POTASSIUM 4.4 MEQ/L (3.5-5.1)
[2016-10-27] MEDS: ASPIRIN 81 MG CHEW TAB PO SCH (08:55)
[2016-10-27] MEDS: CHOLECALCIFEROL (VIT D3) 1000 UNIT TAB PO SCH (08:55)
[2016-10-27] MEDS: DOCUSATE SODIUM 100 MG CAP PO SCH ×2 (08:55→21:13)
[2016-10-27] MEDS: SENNOSIDES 8.6 MG TAB PO SCH ×2 (08:55→21:00)
[2016-10-27] MEDS: FAMOTIDINE 20 MG TAB PO SCH (08:55)
[2016-10-27] MEDS: NICOTINE 21 MG/24 HR PATCH T-DERMAL SCH (08:56)
--- NOTE | 2016-10-27 10:57 | PD.VS.PN ---
Subjective POD #: 5 Procedure(s): TEVAR, R groin reconstruction; iliac stents Subjective/Hospital Course Patient without complaints. ambulating in hallway. Awaiting therapeutic INR (AVR) Objective Vitals/I&O Date Time Temp Pulse Resp B/P Pulse Ox O2 Delivery O2 Flow Rate FiO2 10/27/16 07:40 100 Room Air 10/27/16 07:40 97.9 89 19 142/69 99 10/27/16 06:00 88 10/27/16 05:54 18 10/27/16 05:00 83 10/27/16 04:00 81 10/27/16 03:00 84 10/27/16 03:00 100 Room Air 10/27/16 03:00 98.3 88 16 120/69 100 10/27/16 02:00 85 10/27/16 01:00 85 10/27/16 00:00 82 10/26/16 23:00 98.1 84 16 104/57 98 10/26/16 23:00 98 Room Air 10/26/16 23:00 78 10/26/16 22:00 86 10/26/16 21:00 75 10/26/16 20:00 86 10/26/16 19:00 100 Nasal Cannula 1.00 10/26/16 19:00 98.4 87 16 110/60 100 10/26/16 19:00 88 10/26/16 18:05 87 10/26/16 17:39 90 18 135/74 99 10/26/16 15:18 94 Room Air 10/26/16 15:18 98.2 89 18 109/63 94 10/26/16 15:00 80 10/26/16 11:37 100 10/26/16 11:00 Nasal Cannula 1.00 10/26/16 11:00 98.6 96 18 130/71 98 10/27/16 10/27/16 10/27/16 06:59 14:59 22:59 Intake Total 560 ml Output Total 475 ml Balance 85 ml Exam: Feet warm, good strength. R groin VAC in place without ecchymoses and no fullness. Laboratory Laboratory Tests Test 10/27/16 04:20 White Blood Count 6.3 Red Blood Count 3.17 Hemoglobin 8.2 Hematocrit 25.4 Mean Corpuscular Volume 80.2 Mean Corpuscular Hemoglobin 25.8 Mean Corpuscular Hemoglobin 32.2 Concent Red Cell Distribution Width 15.7 Platelet Count 198 Mean Platelet Volume 8.5 Prothrombin Time 13.3 Prothromb Time International 1.2 Ratio Activated Partial 57.8 Thromboplast Time Sodium Level 142 Potassium Level 4.4 Chloride Level 107 Carbon Dioxide Level 25.7 Anion Gap 9 Blood Urea Nitrogen 36 Creatinine 2.26 Estimat Glomerular Filtration 30 Rate Random Glucose 80 Calcium Level 9.2 Assessment and Plan Plan Doing well Ready for d/c except anticoagulation Will check with cardiology re: acceptability of alternate anticoagulation that are more amenable to outpatient therapy Will need f/u with PCP within a week for coumadin check Discharge Planning as early as tomorrow (Thursday) Darryl Pérez MD October 27, 2016 10:57
[2016-10-27] MEDS: WARFARIN SOD 5 MG TAB PO SCH (15:41)
--- NOTE | 2016-10-27 17:24 | PD.CONS ---
HPI Service Cardiology Consult Requested By Reason for Consult Pt has a HX of AVR and has been on Coumadin therapy. Requesting a consult for acceptability of alternate anticoagulation that are more amenable to outpatient therapy Primary Care Physician Unknown History of Present Illness 61 y/o M with hx of Asc Aortic aneurysm repair and AVR, Marfan's syndrome . No CV complaints. Complaint with outpatient medications. On chronic Coumadin. Admitted with chronic SOB since then but over the last few weeks. A CT scan suggested he has an aneurysm or pseudoaneurysm and he was transferred here for higher level of care. Cardiology consulted for anticoagulation management. Currently on Heparin drip. Review of Systems Consitutional: DENIES: Fatigue, Fever, Chills, Weight gain, Weight loss Eyes: DENIES: Amaurosis Fugax, Change in vision HEENT: DENIES: Lightheadedness, Change in hearing Respiratory: DENIES: See HPI, Cough, Snoring, Shortness of breath, Wheezing, Sputum production Cardiovascular: DENIES: See HPI, Chest pain, Palpitations, Syncope, Tachycardia Gastrointestinal: DENIES: Nausea, Vomiting, Change in bowel habits, Reflux, Bloody stools, Melena Genitourinary: DENIES: Urinary incontinence, Difficulty voiding Integumentary: DENIES: Rash Neurologic: DENIES: Tingling or numbness, Memory problems, Poor Balance, Stroke symptoms Musculoskeletal: DENIES: Joint pain, Muscle pain, Limited range of motion, Back pain Psychiatric: DENIES: Anxiety, Depression, Sleep disturbances Hematologic: DENIES: Bruising tendencies, Bleeding tendencies Endocrine: DENIES: Weight gain, Weight loss, Thyroid disease Past Family Social History Allergies: Coded Allergies: Vancomycin (Verified Allergy, Severe, Hallucinations, 10/20/16) Penicillin (Verified Allergy, Mild, Hives, 10/20/16) Past Medical History Marfan's syndrome Hypertension Coronary artery disease Congestive heart failure (15% reportedly) Chronic renal insufficiency Past Surgical History 1. AVR/ascending root - 1998 2. L C-SC/TEVAR - 2007 3. R neck gland excision - age 9 Active Ordered Medications Current Medications Medications (Trade) Dose Ordered Sig/Katharina Route Start Time Stop Time Status Last Admin (Pepcid) 20 mg DAILY PO 10/21/16 09:00 10/27/16 08:55 (Vitamin D3) 1,000 units DAILY PO 10/21/16 09:00 10/27/16 08:55 (Lasix Inj) 40 mg BID IV PUSH 10/20/16 21:00 Hold 10/20/16 21:29 (Diovan) 80 mg DAILY PO 10/21/16 09:00 (Habitrol 21 Mg Patch.24 Hr) 21 patch DAILY T-DERMAL 10/21/16 09:00 10/27/16 08:56 (Ativan) 0.5 mg Q6H PRN PO 10/20/16 19:15 10/23/16 03:17 (Morphine Inj) 2 mg Q4H PRN IV 10/20/16 19:15 10/21/16 08:55 (Aspirin Chew) 81 mg DAILY PO 10/23/16 09:00 10/27/16 08:55 (Lopressor Inj) 5 mg Q4H PRN IV PUSH 10/23/16 08:30 10/23/16 18:05 Oxycodone HCl 5 mg 5 mg Q4H PRN PO 10/24/16 08:45 10/27/16 13:52 (Heparin-D5W Inj) 250 ml @ 0 mls/hr TITRATE IV 10/24/16 08:45 10/27/16 05:59 (Coumadin) 5 mg DAILY@1600 PO 10/24/16 16:00 10/27/16 15:41 (Colace) 100 mg BID PO 10/25/16 09:00 10/27/16 08:55 (Senokot) 8.6 mg Q12HR PO 10/25/16 09:00 10/26/16 08:00 (Glycerin Adult Supp) 2 gm DAILY PRN RECTAL 10/26/16 08:00 Social History No smoking No alcohol No illicit drug use Physical Exam Vital Signs Vital Signs Date Time Temp Pulse Resp B/P Pulse Ox O2 Delivery O2 Flow Rate FiO2 10/27/16 15:38 98 Room Air 10/27/16 15:32 98.4 89 19 149/63 98 10/27/16 15:00 86 10/27/16 14:00 88 10/27/16 13:00 96 10/27/16 12:00 90 10/27/16 11:15 97.8 95 19 137/71 99 10/27/16 11:00 100 Room Air 10/27/16 11:00 101 10/27/16 10:00 86 10/27/16 09:00 94 10/27/16 08:00 100 10/27/16 07:40 100 Room Air 10/27/16 07:40 97.9 89 19 142/69 99 10/27/16 07:00 92 10/27/16 06:00 88 10/27/16 05:54 18 10/27/16 05:00 83 10/27/16 04:00 81 10/27/16 03:00 84 10/27/16 03:00 100 Room Air 10/27/16 03:00 98.3 88 16 120/69 100 10/27/16 02:00 85 10/27/16 01:00 85 10/27/16 00:00 82 10/26/16 23:00 98.1 84 16 104/57 98 10/26/16 23:00 98 Room Air 10/26/16 23:00 78 10/26/16 22:00 86 10/26/16 21:00 75 10/26/16 20:00 86 10/26/16 19:00 100 Nasal Cannula 1.00 10/26/16 19:00 98.4 87 16 110/60 100 10/26/16 19:00 88 10/26/16 18:05 87 10/26/16 17:39 90 18 135/74 99 Physical Exam GENERAL: Well-nourished, well-developed patient. SKIN: Warm and dry. HEAD: Normocephalic. EYES: No scleral icterus. No injection or drainage. NECK: Supple, trachea midline. No JVD or lymphadenopathy. CARDIOVASCULAR: Regular rate and rhythm 2/6 murmurs, gallops, or rubs. RESPIRATORY: Breath sounds equal bilaterally. No accessory muscle use. GASTROINTESTINAL: Abdomen soft, non-tender, nondistended. EXTREMITIES: No cyanosis, or edema. NEUROLOGICAL: Awake, alert, and oriented x 3. Non-focal. Laboratory Laboratory Tests Test 10/27/16 04:20 White Blood Count 6.3 Red Blood Count 3.17 Hemoglobin 8.2 Hematocrit 25.4 Mean Corpuscular Volume 80.2 Mean Corpuscular Hemoglobin 25.8 Mean Corpuscular Hemoglobin 32.2 Concent Red Cell Distribution Width 15.7 Platelet Count 198 Mean Platelet Volume 8.5 Prothrombin Time 13.3 Prothromb Time International 1.2 Ratio Activated Partial 57.8 Thromboplast Time Sodium Level 142 Potassium Level 4.4 Chloride Level 107 Carbon Dioxide Level 25.7 Anion Gap 9 Blood Urea Nitrogen 36 Creatinine 2.26 Estimat Glomerular Filtration 30 Rate Random Glucose 80 Calcium Level 9.2 Result Diagram: 10/27/1641910/27/160 Imaging Last Impressions Lumbar Puncture Fluoroscopy 10/22/16 0600 Signed Impressions: Service Date/Time: Saturday, October 22, 2016 08:09 - CONCLUSION: Uncomplicated lumbar drain placement as above. Elton Pollock MD Chest X-Ray 10/21/16 0000 Signed Impressions: Service Date/Time: Friday, October 21, 2016 16:54 - CONCLUSION: 1. Central line in good position without pneumothorax. 2. Left basilar atelectasis versus infiltrate. 3. Cardiomegaly. James Alvarado Jr., MD Abdomen/Pelvis CT 10/21/16 0000 Signed Impressions: Service Date/Time: Friday, October 21, 2016 20:19 - CONCLUSION: 1. Adult polycystic kidney disease 2. High-grade stenosis involving the external iliac bilaterally is worse on the left than on the right 3. 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 4. No evidence of aneurysm José Miguel Barajas MD ADDENDUM: There is a 1.4 symmetr nodule the left lower lobe. Malignancy is not excluded. PET/CT scan is recommended to further evaluation if clinically indicated. José Miguel Barajas MD Chest CT 10/20/16 0000 Signed Impressions: Service Date/Time: Thursday, October 20, 2016 21:01 - CONCLUSION: 1. Aortic stent graft present extending from the root to the diaphragmatic hiatus. There is an aneurysm sac of the descending thoracic aorta with somewhat heterogeneous attenuation contents and also a focally saccular configuration as described above. Endoleak and/or hematoma within the aneurysm sac possible. I don't see any extraluminal collections or inflammatory changes. There is no mediastinal hematoma. If patient's renal function can tolerate it, CT aortogram is suggested. 2. Patchy infiltrate and atelectasis of the left lung base. There is chronic appearing volume loss. Patient has old left rib fractures. 3. Left ventricular dilatation and coronary artery calcification noted. Yan Barrera MD Assessment and Plan Problem List: (1) Thoracic aortic aneurysm without rupture Assessment and Plan: 61 y/o M with hx of Asc Aortic aneurysm repair and AVR, Marfan's syndrome . No CV complaints. Complaint with outpatient medications. On chronic Coumadin. Cardiology consulted for anticoagulation management. Currently on Heparin drip with Coumadin bridge, an alternative would be Lovenox with Coumadin bridge. Recommendations: 1. Cont Heparin drip or change to Lovenox and bridge with Coumadin 2. Goal INR 2-3 3. F/u with outpatient cardiology Thank you for the opportunity to participate in the care of this patient Sign off Michael Hummel MD October 27, 2016 17:24
[2016-10-28] VITALS (12 sets, daily range): BP systolic 104–155; BP diastolic 56–76; PULSE 78–111; RESP 18–19; TEMP 97.8–98.5; O2SAT 95–100
[2016-10-28] MEDS: HEPARIN-D5W INJ 250 ML IV SCH (00:22)
[2016-10-28 05:29] LABS: MEAN CELL VOLUME 79.2 FL (80.0-100.0); MEAN CORPUSCULAR HEMOGLOBIN 25.5 PG (27.0-34.0); MEAN CORPUSCULAR HGB CONC 32.2 % (32.0-36.0); PLATELET COUNT 191 TH/MM3 (150-450); RED BLOOD COUNT 3.16 MIL/MM3 (4.50-5.90); RED CELL DISTRIBUTION WIDTH 15.7 % (11.6-17.2); REVIEW FLAG FINAL; WHITE BLOOD COUNT 5.3 TH/MM3 (4.0-11.0)
[2016-10-28 05:40] LABS: APTT (PATIENT) 50.4 SEC (24.3-30.1); INTERNATIONAL NORMALIZED RATIO 1.4 RATIO; PROTHROMBIN TIME - PATIENT 15.6 SEC (9.8-11.6)
[2016-10-28 05:52] LABS: POTASSIUM 4.2 MEQ/L (3.5-5.1)
--- NOTE | 2016-10-28 08:05 | PD.VS.PN ---
Subjective POD #: 6 Procedure(s): TEVAR, R groin reconstruction; iliac stents Subjective/Hospital Course Patient without complaints. ambulating in hallway. Awaiting therapeutic INR (AVR) Objective Vitals/I&O Date Time Temp Pulse Resp B/P Pulse Ox O2 Delivery O2 Flow Rate FiO2 10/28/16 06:00 111 10/28/16 05:00 91 10/28/16 04:00 100 Room Air 10/28/16 04:00 84 10/28/16 04:00 98.5 87 18 104/56 100 10/28/16 03:33 18 10/28/16 03:00 86 10/28/16 02:00 88 10/28/16 01:00 90 10/28/16 00:00 98.5 91 18 136/71 98 10/28/16 00:00 89 10/28/16 00:00 98 Room Air 10/27/16 23:00 83 10/27/16 22:00 86 10/27/16 21:00 78 10/27/16 20:00 100 Room Air 10/27/16 20:00 98.3 85 18 112/64 100 10/27/16 20:00 88 10/27/16 19:00 87 10/27/16 18:00 84 10/27/16 17:00 82 10/27/16 16:00 82 10/27/16 15:38 98 Room Air 10/27/16 15:32 98.4 89 19 149/63 98 10/27/16 15:00 86 10/27/16 14:00 88 10/27/16 13:00 96 10/27/16 12:00 90 10/27/16 11:15 97.8 95 19 137/71 99 10/27/16 11:00 100 Room Air 10/27/16 11:00 101 10/27/16 10:00 86 10/27/16 09:00 94 Exam: R groin vac removed on rounds. Mild ecchymoses but no evidence of groin infection Feet warm 5/5 strength throughout Laboratory Laboratory Tests Test 10/28/16 05:03 White Blood Count 5.3 Red Blood Count 3.16 Hemoglobin 8.0 Hematocrit 25.0 Mean Corpuscular Volume 79.2 Mean Corpuscular Hemoglobin 25.5 Mean Corpuscular Hemoglobin 32.2 Concent Red Cell Distribution Width 15.7 Platelet Count 191 Mean Platelet Volume 8.0 Prothrombin Time 15.6 Prothromb Time International 1.4 Ratio Activated Partial 50.4 Thromboplast Time Sodium Level 140 Potassium Level 4.2 Chloride Level 108 Carbon Dioxide Level 23.0 Anion Gap 9 Blood Urea Nitrogen 34 Creatinine 2.00 Estimat Glomerular Filtration 34 Rate Random Glucose 87 Calcium Level 9.2 Assessment and Plan Plan doing well 1. D/C today with RTC 3-4 weeks with ABIs and post-op TEVAR CTA C/A/P 2. Transition to lovenox (1mg/kg BID) and continue coumadin. Mr. Nagy gets his INR checked at the [facility] and will have it checked on this week. They will adjust dosing until INR >2, at which time he can discontinue therapeutic lovenox 3. He has my phone numbers for any questions or problems that may arise. Discharge Planning as early as tomorrow (Thursday) Darryl Pérez MD October 28, 2016 08:05
[2016-10-28] MEDS: NICOTINE 21 MG/24 HR PATCH T-DERMAL SCH (08:11)
[2016-10-28] MEDS: SENNOSIDES 8.6 MG TAB PO SCH (08:12)
[2016-10-28] MEDS: DOCUSATE SODIUM 100 MG CAP PO SCH (08:12)
[2016-10-28] MEDS: FAMOTIDINE 20 MG TAB PO SCH (08:12)
[2016-10-28] MEDS: CHOLECALCIFEROL (VIT D3) 1000 UNIT TAB PO SCH (08:12)
[2016-10-28] MEDS: ASPIRIN 81 MG CHEW TAB PO SCH (08:12)
[2016-10-28] MEDS ORDERED: ENOX100P SQ (08:33)
--- NOTE | 2016-10-28 09:05 | PD.VS.DC ---
Discharge Summary Admission Date: October 20, 2016 at 17:32 Discharge Date: October 28, 2016 Admission Diagnosis: (1) Thoracic aortic aneurysm without rupture Discharge Diagnosis: (1) Thoracic aortic aneurysm without rupture Status: Acute Brief History from admission 61 yo male with Marfan's syndrome who in 1998 underwent AVR/root (from his description) for what sounds like incidentally discovered ascending aortic aneurysm. Did well but then in 2007 had CP/SOB and was seen at [facility] and underwent L C-SC bypass with TEVAR, being discharged in December 2008. He has had chronic SOB since then but over the last few weeks it has worsened and he was admitted to outside hospital on . A CT scan (images NOT available) suggests he has an aneurysm or maybe pseudoaneurysm, although the CT was done without contrast because of renal insufficiency. The patient notes that his current worsening SOB is not worse since admission Procedure(s): TEVAR, R groin reconstruction; iliac stents Significant Findings GENERAL: A&OX3, GCS15, NAD SKIN: Warm and dry. R groin incision intact without D/S/O minimal erythema noted around incision line CARDIOVASCULAR: RRR, +S1,S2 RESPIRATORY: BS CTA MUSCULOSKELETAL: No cyanosis, or edema. Pt denies back or abdominal pain Laboratory Tests Test 10/25/16 10/25/16 10/26/16 10/27/16 11:45 18:30 05:31 04:20 Activated Partial 60.6 SEC 53.4 SEC 49.4 SEC 57.8 SEC Thromboplast Time (24.3-30.1) (24.3-30.1) (24.3-30.1) (24.3-30.1) Red Blood Count 3.70 MIL/MM3 3.17 MIL/MM3 (4.50-5.90) (4.50-5.90) Hemoglobin 9.2 GM/DL 8.2 GM/DL (13.0-17.0) (13.0-17.0) Hematocrit 29.8 % 25.4 % (39.0-51.0) (39.0-51.0) Mean Corpuscular Hemoglobin 24.9 PG 25.8 PG (27.0-34.0) (27.0-34.0) Mean Corpuscular Hemoglobin 30.9 % Concent (32.0-36.0) Prothrombin Time 11.7 SEC 13.3 SEC (9.8-11.6) (9.8-11.6) Chloride Level 108 MEQ/L (98-107) Blood Urea Nitrogen 37 MG/DL (7-18) 36 MG/DL (7-18) Creatinine 2.36 MG/DL 2.26 MG/DL (0.60-1.30) (0.60-1.30) Estimat Glomerular Filtration 28 ML/MIN (>89) 30 ML/MIN (>89) Rate Test 10/28/16 05:03 Red Blood Count 3.16 MIL/MM3 (4.50-5.90) Hemoglobin 8.0 GM/DL (13.0-17.0) Hematocrit 25.0 % (39.0-51.0) Mean Corpuscular Volume 79.2 FL (80.0-100.0) Mean Corpuscular Hemoglobin 25.5 PG (27.0-34.0) Prothrombin Time 15.6 SEC (9.8-11.6) Activated Partial 50.4 SEC Thromboplast Time (24.3-30.1) Chloride Level 108 MEQ/L (98-107) Blood Urea Nitrogen 34 MG/DL (7-18) Creatinine 2.00 MG/DL (0.60-1.30) Estimat Glomerular Filtration 34 ML/MIN (>89) Rate Hospital Course: 61 yo male with Marfan's syndrome who in 1998 underwent AVR/root (from his description) for what sounds like incidentally discovered ascending aortic aneurysm. Pt has a hx of chronic SOB but over the last few weeks it has worsened and he was admitted to outside hospital on . A CT scan suggested he has an aneurysm or maybe pseudoaneurysm, although the CT was done without contrast because of renal insufficiency. Surgical intervention (TEVAR, R groin reconstruction with iliac stents) was done on 10/22/16 Pt has done well post operatively w/o complications Pt ready for d/c Will f/u in our OPC in 3W with a surveillance CTA C/A/P Allergies Coded Allergies Type Severity Reaction Last Updated Verified Vancomycin Allergy Severe Hallucinations 10/20/16 Yes Penicillin Allergy Mild Hives 10/20/16 Yes 10/26//////// 06:00 18:00 06:00 18:00 06:00 18:00 Intake Total 650 ml 1115 ml 560 ml 1560 ml Output Total 500 ml 1500 ml 475 ml 1000 ml Balance 150 ml -385 ml 85 ml 560 ml Intake Oral 480 ml 960 ml 380 ml 1200 ml IV Total 170 ml 155 ml 180 ml 360 ml Output Urine Total 500 ml 1500 ml 475 ml 1000 ml # Bowel Movements 0 8 0 0 Laboratory Tests Test 10/25/16 10/25/16 10/26/16 10/27/16 11:45 18:30 05:31 04:20 Activated Partial 60.6 SEC 53.4 SEC 49.4 SEC 57.8 SEC Thromboplast Time White Blood Count 8.7 TH/MM3 6.3 TH/MM3 Red Blood Count 3.70 MIL/MM3 3.17 MIL/MM3 Hemoglobin 9.2 GM/DL 8.2 GM/DL Hematocrit 29.8 % 25.4 % Mean Corpuscular Volume 80.6 FL 80.2 FL Mean Corpuscular Hemoglobin 24.9 PG 25.8 PG Mean Corpuscular Hemoglobin 30.9 % 32.2 % Concent Red Cell Distribution Width 15.8 % 15.7 % Platelet Count 195 TH/MM3 198 TH/MM3 Mean Platelet Volume 8.3 FL 8.5 FL Prothrombin Time 11.7 SEC 13.3 SEC Prothromb Time International 1.1 RATIO 1.2 RATIO Ratio Sodium Level 141 MEQ/L 142 MEQ/L Potassium Level 4.1 MEQ/L 4.4 MEQ/L Chloride Level 108 MEQ/L 107 MEQ/L Carbon Dioxide Level 23.6 MEQ/L 25.7 MEQ/L Anion Gap 9 MEQ/L 9 MEQ/L Blood Urea Nitrogen 37 MG/DL 36 MG/DL Creatinine 2.36 MG/DL 2.26 MG/DL Estimat Glomerular Filtration 28 ML/MIN 30 ML/MIN Rate Random Glucose 97 MG/DL 80 MG/DL Calcium Level 9.6 MG/DL 9.2 MG/DL Test 10/28/16 05:03 White Blood Count 5.3 TH/MM3 Red Blood Count 3.16 MIL/MM3 Hemoglobin 8.0 GM/DL Hematocrit 25.0 % Mean Corpuscular Volume 79.2 FL Mean Corpuscular Hemoglobin 25.5 PG Mean Corpuscular Hemoglobin 32.2 % Concent Red Cell Distribution Width 15.7 % Platelet Count 191 TH/MM3 Mean Platelet Volume 8.0 FL Prothrombin Time 15.6 SEC Prothromb Time International 1.4 RATIO Ratio Activated Partial 50.4 SEC Thromboplast Time Sodium Level 140 MEQ/L Potassium Level 4.2 MEQ/L Chloride Level 108 MEQ/L Carbon Dioxide Level 23.0 MEQ/L Anion Gap 9 MEQ/L Blood Urea Nitrogen 34 MG/DL Creatinine 2.00 MG/DL Estimat Glomerular Filtration 34 ML/MIN Rate Random Glucose 87 MG/DL Calcium Level 9.2 MG/DL Procedure Category Date Status Time Act Partial Throm LAB 10/25/16 Complete Time (Ptt) 18:00 Act Partial Throm LAB 10/27/16 Complete Time (Ptt) 05:00 Polyethylene Glycol MED 10/26/16 Complete (Miralax) 08:00 Lactulose Liq MED 10/26/16 Complete (Lactulose Liq) 08:00 Glycerin Adult Supp MED 10/26/16 In Process (Glycerin Adult Supp 08:00 Patient Transfer ADMITTING 10/26/16 Transmitted ^ Discontinue Central SONAM 10/26/16 In Process Line 14:23 Consult Cardiology CONS 10/27/16 Transmitted (Hub Use Only)Inp Phy CONS 10/27/16 Transmitted Cons/Ref Attending Discharge DISCHARGE 10/28/16 Transmitted Order Vital Signs Date Time Temp Pulse Resp B/P Pulse Ox O2 Delivery O2 Flow Rate FiO2 10/28/16 06:00 111 10/28/16 05:00 91 10/28/16 04:00 100 Room Air 10/28/16 04:00 84 10/28/16 04:00 98.5 87 18 104/56 100 10/28/16 03:33 18 10/28/16 03:00 86 10/28/16 02:00 88 10/28/16 01:00 90 10/28/16 00:00 98.5 91 18 136/71 98 10/28/16 00:00 89 10/28/16 00:00 98 Room Air 10/27/16 23:00 83 10/27/16 22:00 86 10/27/16 21:00 78 10/27/16 20:00 100 Room Air 10/27/16 20:00 98.3 85 18 112/64 100 10/27/16 20:00 88 10/27/16 19:00 87 10/27/16 18:00 84 10/27/16 17:00 82 10/27/16 16:00 82 10/27/16 15:38 98 Room Air 10/27/16 15:32 98.4 89 19 149/63 98 10/27/16 15:00 86 10/27/16 14:00 88 10/27/16 13:00 96 10/27/16 12:00 90 10/27/16 11:15 97.8 95 19 137/71 99 10/27/16 11:00 100 Room Air 10/27/16 11:00 101 10/27/16 10:00 86 10/27/16 09:00 94 10/27/16 08:00 100 10/27/16 07:40 100 Room Air 10/27/16 07:40 97.9 89 19 142/69 99 10/27/16 07:00 92 10/27/16 06:00 88 10/27/16 05:00 83 10/27/16 04:00 81 10/27/16 03:00 84 10/27/16 03:00 100 Room Air 10/27/16 03:00 98.3 88 16 120/69 100 10/27/16 02:00 85 10/27/16 01:00 85 10/27/16 00:00 82 10/26/16 23:00 98.1 84 16 104/57 98 10/26/16 23:00 98 Room Air 10/26/16 23:00 78 10/26/16 22:00 86 10/26/16 21:00 75 10/26/16 20:00 86 10/26/16 19:00 100 Nasal Cannula 1.00 10/26/16 19:00 98.4 87 16 110/60 100 10/26/16 19:00 88 10/26/16 18:05 87 10/26/16 17:39 90 18 135/74 99 10/26/16 15:18 94 Room Air 10/26/16 15:18 98.2 89 18 109/63 94 10/26/16 15:00 80 10/26/16 11:37 100 10/26/16 11:00 Nasal Cannula 1.00 10/26/16 11:00 98.6 96 18 130/71 98 10/26/16 07:45 Nasal Cannula 1.00 10/26/16 07:45 97.8 85 18 117/62 99 10/26/16 07:26 96 Nasal Cannula 3.00 10/26/16 07:00 80 10/26/16 04:00 86 10/26/16 04:00 96 Room Air 10/26/16 04:00 98.4 86 20 123/65 10/26/16 00:00 78 10/26/16 00:00 78 16 99/51 95 10/26/16 00:00 95 Room Air 10/25/16 21:14 96 Nasal Cannula 3.00 10/25/16 21:00 95 Room Air 10/25/16 20:00 98 Nasal Cannula 2.00 10/25/16 20:00 84 10/25/16 20:00 98.2 84 18 114/58 98 10/25/16 15:15 99 Nasal Cannula 2.00 10/25/16 15:15 98.2 82 16 101/55 99 10/25/16 15:00 90 10/25/16 11:38 90 10/25/16 11:28 98 Nasal Cannula 2.00 10/25/16 11:28 98.4 89 18 101/62 98 Discharge Condition: Good Discharge Disposition: Discharge Home Discharge Instructions: Leave Right groin incision Open to Air May shower No tub baths Call the office to report any new onset fever, chills, back or abdominal pain Follow up in 3W at your scheduled appointment time 11/28/16 @ 1045 Follow up at the [facility] for continued monitoring (PT/INR) Selena GARIBAY [facility] [phone] Any questions or concerns: Call [phone] Selena Norton October 28, 2016 09:05
== END 2016-10-29 02:05 | disposition home or self-care (01) | DRG 271 ==
LOC: N04B 17:32 → HCVR 23:34 → HCIN 10-26 16:32
PROVIDERS: ADMIT Surgery; ATTEND Surgery
PROC: 03HY32Z Insertion of Monitoring Device into Upper Artery, Percutaneous Approach (ICD-10-PCS; 2016-10-21)
PROC: 4A133B1 Monitoring of Arterial Pressure, Peripheral, Percutaneous Approach (ICD-10-PCS; 2016-10-21)
PROC: 4A133J1 Monitoring of Arterial Pulse, Peripheral, Percutaneous Approach (ICD-10-PCS; 2016-10-21)
PROC: 05HM33Z Insertion of Infusion Device into Right Internal Jugular Vein, Percutaneous Approach (ICD-10-PCS; 2016-10-21)
PROC: 047C34Z Dilation of Right Common Iliac Artery with Drug-eluting Intraluminal Device, Percutaneous Approach (ICD-10-PCS; 2016-10-22)
PROC: 047E34Z Dilation of Right Internal Iliac Artery with Drug-eluting Intraluminal Device, Percutaneous Approach (ICD-10-PCS; 2016-10-22)
PROC: 027 Heart and Great Vessels, Dilation (ICD-10-PCS; 2016-10-22)
PROC: 009U30Z Drainage of Spinal Canal with Drainage Device, Percutaneous Approach (ICD-10-PCS; 2016-10-22)
PROC: 04CK3ZZ Extirpation of Matter from Right Femoral Artery, Percutaneous Approach (ICD-10-PCS; principal; 2016-10-22 10:46)
PROC: 04CE3ZZ Extirpation of Matter from Right Internal Iliac Artery, Percutaneous Approach (ICD-10-PCS; 2016-10-22 10:46)
DX: I71.2 Thoracic aortic aneurysm, without rupture (principal); Q87.40 Marfan syndrome, unspecified; E87.3 Alkalosis; N17.9 Acute kidney failure, unspecified; I50.22 Chronic systolic (congestive) heart failure; Q61.2 Polycystic kidney, adult type; I25.10 Atherosclerotic heart disease of native coronary artery without angina pectoris; N18.9 Chronic kidney disease, unspecified; I12.9 Hypertensive chronic kidney disease with stage 1 through stage 4 chronic kidney disease, or unspecified chronic kidney disease; Z88.1 Allergy status to other antibiotic agents; Z88.0 Allergy status to penicillin; Z95.2 Presence of prosthetic heart valve; Z79.01 Long term (current) use of anticoagulants; I73.9 Peripheral vascular disease, unspecified; K57.30 Diverticulosis of large intestine without perforation or abscess without bleeding; D64.9 Anemia, unspecified; Z87.442 Personal history of urinary calculi; R79.1 Abnormal coagulation profile; I70.8 Atherosclerosis of other arteries; K59.00 Constipation, unspecified; D72.829 Elevated white blood cell count, unspecified; M25.561 Pain in right knee
CPT/HCPCS: 36600; 63741; 71010; 71250; 74174; 74176; 75625; 76937; 77003; 80048; 80053; 82805; 83735; 84100; 84484; 85025; 85027; 85610; 85730; 86850; 86900; 86901; 86920; 93005; 93306; 93922; 99152; 99153; C1725; C1755; C1769; C1876; C9132; J0171; J0461; J1644; J1940; J1956; J2250; J2270; J2370; J2710; J2720; J3010; J7030; J7040; J7070; Q9967

== ENCOUNTER 2016-12-12 09:19 | Emergency (ER) | payer MEDICARE, OTHER ==
[~2016-12-12] VITALS: Ht 190.5 cm; Wt 100.0 kg
[~2016-12-12 09:19] MED LIST: ENOX100P SQ
[2016-12-12 09:24] VITALS: BP 144/65; PULSE 86; RESP 36; TEMP 97.9
[2016-12-12 09:29] VITALS: O2SAT 98
[2016-12-12] MEDS ORDERED: FURO40TA PO (09:46)
[2016-12-12] MEDS ORDERED: [UNRECOGNIZED DRUG - CODE] PO (09:46)
[2016-12-12] MEDS ORDERED: VALS1TAB64 PO (09:46)
[2016-12-12] MEDS ORDERED: WARF-23 PO (09:46)
[2016-12-12] MEDS ORDERED: CEFD300C PO (09:46)
[2016-12-12] MEDS ORDERED: METO50TA PO (09:46)
[2016-12-12 09:52] VITALS: O2SAT 100
--- NOTE | 2016-12-12 09:58 | PD ---
HPI Chief Complaint: Cardiac Complaint Time Seen by Provider: 09:34 Travel History International Travel<30 days: No Contact w/Intl Traveler<30days: No Traveled to known affect area: No History of Present Illness HPI 61-year-old male complains of coughing congestion shortness of breath. Patient states that he has chronic recurrent shortness of breath for the past few months. Patient status post right femoral artery surgery, right groin reconstruction with iliac stent last month. Patient states that he has increasing lower extremity swelling and shortness of breath since then. Patient has history of reactive airway disease and CHF. Patient states that he has persistent dry cough for the past month. Patient states that he noticed increasing lower extremity swelling recently. Patient was seen by personal physician 2 days ago and given prescription for Cefinir. Patient states that he has persistent symptoms despite taking the medication. Patient denies any fever chills. Patient denies any chest pain. Patient was seen by thoracic surgeon recently and had CT scan of the chest and abdomen and pelvis yesterday. Patient was seen by thoracic surgeon this morning and referred to ED for evaluation of shortness of breath and chronic cough. Patient was using nebulizer treatment at home for wheezing in the past. Patient stopped smoking recently. PFSH Past Medical History Cancer: No Cardiovascular Problems: Yes (AORTIC VALVE REPLACEMENT) Congestive Heart Failure: Yes COPD: Yes Cerebrovascular Accident: Yes (2009) Endocrine: No Genitourinary: Yes Hiatal Hernia: Yes (hernia repair many years ago) Kidney Stones: Yes Medical other: Yes (MARFAN'S SYNDROME) Musculoskeletal: Yes (scoliosis) Neurologic: Yes Psychiatric: No Reproductive: No Respiratory: Yes Myocardial Infarction: Yes Past Surgical History Abdominal Surgery: Yes (hernia repair) Body Medical Devices: aortic valve replacement Cardiac Surgery: Yes (aortic valve replaced 1998, CABG? 2009) Other Surgery: Yes (FEMORAL ANUERYSM REPAIR ) Social History Alcohol Use: No Tobacco Use: Yes Substance Use: No Allergies-Medications (Allergen,Severity, Reaction): Coded Allergies: Vancomycin (Verified Allergy, Severe, Hallucinations, 10/20/16) Penicillin (Verified Allergy, Mild, Hives, 10/20/16) Reported Meds & Prescriptions Reported Meds & Active Scripts Active Reported Cefdinir 300 Mg Cap 300 Mg PO BID D3-2000 (Cholecalciferol (Vitamin D3)) 2,000 Unit Capsule 1 Cap PO DAILY Valsartan 80 Mg Tab 80 Mg PO DAILY Warfarin 5 Mg Tab 5 Mg PO DAILY Furosemide 40 Mg Tab 40 Mg PO DAILY Metoprolol Tartrate 50 Mg Tab 50 Mg PO BID Review of Systems General / Constitutional: No: Fever Eyes: No: Visual changes HENT: No: Headaches Cardiovascular: No: Chest Pain or Discomfort Respiratory: Positive: Cough, Shortness of Breath Gastrointestinal: No: Abdominal Pain Genitourinary: No: Dysuria Musculoskeletal: No: Pain Skin: No Rash Neurologic: No: Weakness Psychiatric: No: Depression Endocrine: No: Polydipsia Hematologic/Lymphatic: No: Easy Bruising Physical Exam Narrative GENERAL: Well-nourished, well-developed patient. SKIN: Focused skin assessment warm/dry. HEAD: Normocephalic. EYES: No scleral icterus. No injection or drainage. NECK: Supple, trachea midline. No JVD or lymphadenopathy. CARDIOVASCULAR: Regular rate and rhythm without murmurs, gallops, or rubs. RESPIRATORY: Breath sounds equal bilaterally. No accessory muscle use. Patient has mild expiratory wheezes laterally. Few rhonchi at the bases. GASTROINTESTINAL: Abdomen soft, non-tender, nondistended. MUSCULOSKELETAL: No cyanosis. Patient had +1 pitting edema lower extremity. BACK: Nontender without obvious deformity. No CVA tenderness. Neurologic exam normal. Data Data Last Documented VS Vital Signs Date Time Temp Pulse Resp B/P Pulse Ox O2 Delivery O2 Flow Rate FiO2 12/12/16 09:52 100 Room Air 12/12/16 09:24 97.9 86 36 144/65 Orders Electrocardiogram (12/12/16 09:47) Complete Blood Count With Diff (12/12/16 09:47) Comprehensive Metabolic Panel (12/12/16 09:47) B-Type Natriuretic Peptide (12/12/16 09:47) Prothrombin Time / Inr (Pt) (12/12/16 09:47) Act Partial Throm Time (Ptt) (12/12/16 09:47) Urinalysis - C+S If Indicated (12/12/16 09:47) Thyroid Stimulating Hormone (12/12/16 09:47) Chest, Single Ap (12/12/16 09:47) Iv Access Insert/Monitor (12/12/16 09:47) Ecg Monitoring (12/12/16 09:47) Oximetry (12/12/16 09:47) Albuterol-Ipratropium Neb (Duoneb Neb) (12/12/16 10:00) Levofloxacin (Levaquin) (12/13/16 09:00) Labs Laboratory Tests Test 12/12/16 09:50 White Blood Count 10.5 TH/MM3 Red Blood Count 3.49 MIL/MM3 Hemoglobin 8.2 GM/DL Hematocrit 26.7 % Mean Corpuscular Volume 76.4 FL Mean Corpuscular Hemoglobin 23.3 PG Mean Corpuscular Hemoglobin 30.5 % Concent Red Cell Distribution Width 18.6 % Platelet Count 321 TH/MM3 Mean Platelet Volume 8.2 FL Neutrophils (%) (Auto) 73.9 % Lymphocytes (%) (Auto) 8.4 % Monocytes (%) (Auto) 15.7 % Eosinophils (%) (Auto) 1.1 % Basophils (%) (Auto) 0.9 % Neutrophils # (Auto) 7.8 TH/MM3 Lymphocytes # (Auto) 0.9 TH/MM3 Monocytes # (Auto) 1.6 TH/MM3 Eosinophils # (Auto) 0.1 TH/MM3 Basophils # (Auto) 0.1 TH/MM3 CBC Comment DIFF FINAL Differential Comment Prothrombin Time 39.0 SEC Prothromb Time International 3.3 RATIO Ratio Activated Partial 38.8 SEC Thromboplast Time Sodium Level 140 MEQ/L Potassium Level 3.5 MEQ/L Chloride Level 109 MEQ/L Carbon Dioxide Level 19.4 MEQ/L Anion Gap 12 MEQ/L Blood Urea Nitrogen 49 MG/DL Creatinine 2.58 MG/DL Estimat Glomerular Filtration 26 ML/MIN Rate Random Glucose 91 MG/DL Calcium Level 9.4 MG/DL Total Bilirubin 0.6 MG/DL Aspartate Amino Transf 955 U/L (AST/SGOT) Alanine Aminotransferase 763 U/L (ALT/SGPT) Alkaline Phosphatase 104 U/L B-Type Natriuretic Peptide 2190 PG/ML Total Protein 7.3 GM/DL Albumin 3.5 GM/DL Thyroid Stimulating Hormone 1.300 uIU/ML [address] [place] [address] Medical Decision Making Medical Screen Exam Complete: Yes Emergency Medical Condition: Yes Interpretation(s) Last Impressions Chest X-Ray 12/12/16 0967 Signed Impressions: Service Date/Time: Monday, December 12, 2016 10:13 - CONCLUSION: New consolidative changes left base suspicious for an inflammatory process. Cecilio Pollock MD FACR 11:37 AM. CBC WBC 10.5. Hemoglobin 8.2 hematocrit is 6.7. MCV 76.4. Patient at baseline. Bicarbonate 19.4. BUN 49. Creatinine 2.58. AST 955. ALT 763. BNP 2190. Differential Diagnosis Differential diagnosis including bronchitis, pneumonia, CHF, reactive airway disease, PE, pneumothorax. Narrative Course 61-year-old male with shortness of breath, lower extremity swelling and wheezing. History of CHF and reactive airway disease. Patient was informed that he has pneumonia. Patient refuses admission. Patient requesting antibiotic and go home and follow up his physician. Patient has renal insufficiency. Levaquin 500 mg by mouth now. Diagnosis Primary Impression: Pneumonia Qualified Code: J18.9 - Pneumonia of right lung due to infectious organism, unspecified part of lung Additional Impressions: Renal insufficiency Anemia Qualified Code: D64.9 - Anemia, unspecified type Patient Instructions: General Instructions Additional Instructions: Levaquin as directed. Follow-up with personal physician. Return if worse. Med/Other Pt SpecificInfo: Prescription(s) given Scripts Levofloxacin 250 Mg [id number] Mg PO DAILY #10 TAB Ref 0 Prov:Nicho Rubi MD 12/12/16 Disposition: 01 DISCHARGE HOME Condition: Stable Nicho Rubi MD Dec 12, 2016 09:58
[2016-12-12] MEDS ORDERED: RESP: ALBUTEROL 2.5 MG/IPRATROPIUM 0.5 MG NEB (SCH) INH ONE (10:00)
[2016-12-12 10:11] LABS: AUTOMATED NEUTROPHIL # 7.8 TH/MM3 (1.8-7.7); BASOPHIL # 0.1 TH/MM3 (0-0.2); BASOPHIL % 0.9 % (0.0-2.0); EOSINOPHIL # 0.1 TH/MM3 (0-0.4); EOSINOPHIL % 1.1 % (0.0-4.0); HEMATOCRIT 26.7 % (39.0-51.0); HEMO FLAGS DIFF FINAL; LYMPH % 8.4 % (9.0-44.0); LYMPHOCYTE # 0.9 TH/MM3 (1.0-4.8); MEAN CELL VOLUME 76.4 FL (80.0-100.0); MEAN CORPUSCULAR HEMOGLOBIN 23.3 PG (27.0-34.0); MEAN CORPUSCULAR HGB CONC 30.5 % (32.0-36.0); MONO % 15.7 % (0.0-8.0); NEUT % 73.9 % (16.0-70.0); PLATELET COUNT 321 TH/MM3 (150-450); RED BLOOD COUNT 3.49 MIL/MM3 (4.50-5.90); RED CELL DISTRIBUTION WIDTH 18.6 % (11.6-17.2); WHITE BLOOD COUNT 10.5 TH/MM3 (4.0-11.0)
[2016-12-12 10:21] LABS: APTT (PATIENT) 38.8 SEC (24.3-30.1); INTERNATIONAL NORMALIZED RATIO 3.3 RATIO
[2016-12-12 10:29] LABS: ALT (GPT) 763 U/L (12-78); ANION GAP 12 MEQ/L (5-15); AST (GOT) 955 U/L (15-37); BICARBONATE 19.4 MEQ/L (21.0-32.0); BLOOD UREA NITROGEN 49 MG/DL (7-18); CHLORIDE 109 MEQ/L (98-107); GLOMERULAR FILTRATION RATE 26 ML/MIN (>89); POTASSIUM 3.5 MEQ/L (3.5-5.1); SODIUM (NA) 140 MEQ/L (136-145)
[2016-12-12 10:39] LABS: ALKALINE PHOSPHATASE 104 U/L (45-117); TOTAL BILIRUBIN ADULT 0.6 MG/DL (0.2-1.0)
--- NOTE | 2016-12-12 10:42 | RADRPT ---
EXAM DATE/TIME: 12/12/2016 10:13 [facility] COMPARISON: CHEST SINGLE AP, October 21, 2016, 16:54 INDICATIONS : Shortness of breath. MEDICAL HISTORY : Cardiovascular disease. Chronic obstructive pulmonary disease. CVA SURGICAL HISTORY : Hernia repair, aortic valve replacement ENCOUNTER: Initial ACUITY: 1 week PAIN SCORE: 0/10 LOCATION: Bilateral chest FINDINGS: Stent graft and aortic valve are noted. The right lung is clear. The heart is enlarged without fail ure. Increasing consolidation changes are present in the left base suspicious for an inflammatory pr ocess. CONCLUSION: New consolidative changes left base suspicious for an inflammatory process. eCcilio Pollock MD FACR on December 12, 2016 at 10:38 Board Certified Radiologist. This report was verified electronically.
[2016-12-12] MEDS ORDERED: LEVO250T7 PO (11:53)
[2016-12-12] MEDS ORDERED: LEVOFLOXACIN 500 MG TAB PO ONE (12:15)
--- NOTE | 2016-12-12 16:47 | EKG ---
Date Performed: 12/12/2016 Time Performed: 09:55:18 PTAGE: 61 years EKG: Sinus rhythm WITH OCCASIONAL VENTRICULAR PREMATURE COMPLEXES POSSIBLE LEFT ATRIAL ENLARGEMENT LEFT BUNDLE BRANCH BLOCK ABNORMAL ECG PREVIOUS TRACING : 10/25/2016 23.26 Compared to prior tracing no significant change DOCTOR: Vanessa Cadena Interpretating Date/Time 12/12/2016 16:45:30
[2016-12-13] MEDS ORDERED: LEVOFLOXACIN 500 MG TAB PO SCH (09:00)
== END 2016-12-12 12:12 | disposition home or self-care (01) ==
LOC: NEPE 09:19
DX: J18.9 Pneumonia, unspecified organism (principal); N28.9 Disorder of kidney and ureter, unspecified; D64.9 Anemia, unspecified; R22.40 Localized swelling, mass and lump, unspecified lower limb; R06.02 Shortness of breath; R94.31 Abnormal electrocardiogram [ECG] [EKG]; I25.2 Old myocardial infarction; Z98.890 Other specified postprocedural states; Z86.79 Personal history of other diseases of the circulatory system; Z87.09 Personal history of other diseases of the respiratory system; Z87.448 Personal history of other diseases of urinary system; Z87.39 Personal history of other diseases of the musculoskeletal system and connective tissue; Z86.69 Personal history of other diseases of the nervous system and sense organs; Z87.891 Personal history of nicotine dependence
CPT/HCPCS: 71010; 80053; 83880; 84443; 85025; 85610; 85730; 93005; 94664

== ENCOUNTER 2017-01-15 16:58 | Inpatient (IN) | payer MEDICARE ==
[~2017-01-15] VITALS: Ht 190.5 cm; Wt 97.2 kg
[2017-01-15] VITALS (7 sets, daily range): BP systolic 135–165; BP diastolic 67–79; PULSE 69–87; RESP 16–18; TEMP 97.3–97.8; O2SAT 96–100
[~2017-01-15 16:58] MED LIST changes: +CEFD300C PO; -ENOX100P SQ; +FURO40TA PO; +LEVO250T7 PO; +METO50TA PO; +VALS1TAB64 PO; +WARF-23 PO; +[UNRECOGNIZED DRUG - CODE] PO
--- NOTE | 2017-01-15 19:16 | PD ---
HPI Chief Complaint: Headache Time Seen by Provider: 19:12 Travel History International Travel<30 days: No Contact w/Intl Traveler<30days: No Traveled to known affect area: No History of Present Illness HPI 61-year-old male that presents to the ED for evaluation of headache with blurry vision. Per patient she's had this since 11:00 this morning. Per patient it started more with the blurry vision. Per patient is hard to see. Per patient he is able to see but he cannot have central vision. Per patient his peripheral vision is fine but he cannot see properly center. Per patient he sees brownish and radiation. Patient denies any history of this before. He does have a history of Marfan syndrome and has had 2 strokes in the past. He also has a history of aneurysm with repairs 3. He denies any chest pain or shortness of breath. Per patient he has a headache on his forehead as well as of the sinuses that he's not sure if it is related to a sinus infection which she has been battling for the past week versus related to the blurry vision. Per patient he became more significant after the blurry vision. He does have an allergy to penicillin and vancomycin. He denies any chest pain or shortness of breath. No other medical issues at this time. He does have chronic shortness of breath secondary to previous MIs. PFSH Past Medical History Hx Anticoagulant Therapy: Yes (COUDIN ) Cancer: No Cardiovascular Problems: Yes Congestive Heart Failure: Yes COPD: Yes Cerebrovascular Accident: Yes (2009) Endocrine: No Genitourinary: Yes Hiatal Hernia: Yes (hernia repair many years ago) Implanted Vascular Access Dvce: Yes Kidney Stones: Yes Musculoskeletal: Yes (scoliosis) Neurologic: Yes Psychiatric: No Reproductive: No Respiratory: Yes Myocardial Infarction: Yes Past Surgical History Abdominal Surgery: Yes (hernia repair) Body Medical Devices: aortic valve replacement Cardiac Surgery: Yes (aortic valve replaced 1998, CABG? 2009) Other Surgery: Yes (FEMORAL ANUERYSM REPAIR ) Social History Alcohol Use: No Tobacco Use: Yes Substance Use: No Allergies-Medications (Allergen,Severity, Reaction): Coded Allergies: Vancomycin (Verified Allergy, Severe, Hallucinations, 01/15/17) Penicillin (Verified Allergy, Mild, Hives, 01/15/17) Reported Meds & Prescriptions Reported Meds & Active Scripts Active Levofloxacin 250 Mg Tablet 250 Mg PO DAILY Reported Cefdinir 300 Mg Cap 300 Mg PO BID D3-2000 (Cholecalciferol (Vitamin D3)) 2,000 Unit Capsule 1 Cap PO DAILY Valsartan 80 Mg Tab 80 Mg PO DAILY Warfarin 5 Mg Tab 5 Mg PO DAILY Furosemide 40 Mg Tab 40 Mg PO DAILY Metoprolol Tartrate 50 Mg Tab 50 Mg PO BID Review of Systems Except as stated in HPI: all other systems reviewed are Neg Physical Exam Narrative GENERAL: SKIN: Warm and dry. HEAD: Atraumatic. Normocephalic. EYES: Pupils equal and round 4 mm reactive to light and accommodation. No scleral icterus. No injection or drainage. Peripheral vision appears to be intact. No obvious deficits noted in ophthalmic exam. ENT: No nasal bleeding or discharge. Mucous membranes pink and moist. Tongue is midline. No uvula deviation. NECK: Trachea midline. No JVD. CARDIOVASCULAR: Regular rate and rhythm. No murmurs, S3, S4. RESPIRATORY: No accessory muscle use. Clear to auscultation. Breath sounds equal bilaterally. GASTROINTESTINAL: Abdomen soft, non-tender, nondistended. Hepatic and splenic margins not palpable. MUSCULOSKELETAL: Extremities without clubbing, cyanosis, or edema. No obvious deformities. Full range of motion of the upper and lower extremities bilaterally. 2+ pulses bilaterally. NEUROLOGICAL: Awake and alert. No obvious cranial nerve deficits. Motor grossly within normal limits. Five out of 5 muscle strength in the arms and legs. Normal speech. PSYCHIATRIC: Appropriate mood and affect; insight and judgment normal. Data Data Last Documented VS Vital Signs Date Time Temp Pulse Resp B/P Pulse Ox O2 Delivery O2 Flow Rate FiO2 01/15/17 17:37 97.8 69 16 165/72 96 01/15/17 17:37 Room Air Orders Electrocardiogram (01/15/17 18:40) Complete Blood Count With Diff (01/15/17 18:40) Comprehensive Metabolic Panel (01/15/17 18:40) Prothrombin Time / Inr (Pt) (01/15/17 18:40) Act Partial Throm Time (Ptt) (01/15/17 18:40) Magnesium (Mg) (01/15/17 18:40) Thyroid Stimulating Hormone (01/15/17 18:40) Chest, Single Ap (01/15/17 18:40) Iv Access Insert/Monitor (01/15/17 18:40) Ecg Monitoring (01/15/17 18:40) Oximetry (01/15/17 18:40) Ct Brain W/O Iv Contrast(Rout) (01/15/17 19:23) Labs Laboratory Tests Test 01/15/17 18:50 White Blood Count 10.7 TH/MM3 Red Blood Count 4.28 MIL/MM3 Hemoglobin 10.3 GM/DL Hematocrit 33.4 % Mean Corpuscular Volume 78.1 FL Mean Corpuscular Hemoglobin 24.0 PG Mean Corpuscular Hemoglobin 30.8 % Concent Red Cell Distribution Width 20.8 % Platelet Count 231 TH/MM3 Mean Platelet Volume 8.1 FL Neutrophils (%) (Auto) 78.1 % Lymphocytes (%) (Auto) 9.3 % Monocytes (%) (Auto) 10.5 % Eosinophils (%) (Auto) 1.6 % Basophils (%) (Auto) 0.5 % Neutrophils # (Auto) 8.3 TH/MM3 Lymphocytes # (Auto) 1.0 TH/MM3 Monocytes # (Auto) 1.1 TH/MM3 Eosinophils # (Auto) 0.2 TH/MM3 Basophils # (Auto) 0.1 TH/MM3 CBC Comment DIFF FINAL Differential Comment Prothrombin Time 17.3 SEC Prothromb Time International 1.5 RATIO Ratio Activated Partial 30.3 SEC Thromboplast Time MDM Medical Decision Making Medical Screen Exam Complete: Yes Emergency Medical Condition: Yes Medical Record Reviewed: Yes Differential Diagnosis CVA versus TIA versus arterial occlusion versus giant cell arteritis versus arteritis versus aneurysm Narrative Course 61-year-old male that presents to the ED for evaluation of blurry vision and headache. Patient was properly examined and was found to have signs and symptoms very concerning for CVA. He does have a history of that past and he has a history of Marfan syndrome. Labs and imaging ordered. I did told ED nurse that patient needs to be moved to the first med bed available. Case will be signed out to incoming provider pending treatment plan and dispo. Herson Cho Jan 15, 2017 19:16
[2017-01-15 19:31] LABS: AUTOMATED NEUTROPHIL # 8.3 TH/MM3 (1.8-7.7); BASOPHIL # 0.1 TH/MM3 (0-0.2); BASOPHIL % 0.5 % (0.0-2.0); EOSINOPHIL # 0.2 TH/MM3 (0-0.4); EOSINOPHIL % 1.6 % (0.0-4.0); HEMATOCRIT 33.4 % (39.0-51.0); HEMO FLAGS DIFF FINAL; LYMPH % 9.3 % (9.0-44.0); MEAN CELL VOLUME 78.1 FL (80.0-100.0); MEAN CORPUSCULAR HGB CONC 30.8 % (32.0-36.0); MONO % 10.5 % (0.0-8.0); NEUT % 78.1 % (16.0-70.0); PLATELET COUNT 231 TH/MM3 (150-450); RED BLOOD COUNT 4.28 MIL/MM3 (4.50-5.90); RED CELL DISTRIBUTION WIDTH 20.8 % (11.6-17.2); WHITE BLOOD COUNT 10.7 TH/MM3 (4.0-11.0)
[2017-01-15 19:42] LABS: APTT (PATIENT) 30.3 SEC (24.3-30.1); INTERNATIONAL NORMALIZED RATIO 1.5 RATIO; PROTHROMBIN TIME - PATIENT 17.3 SEC (9.8-11.6)
--- NOTE | 2017-01-15 19:55 | RADRPT ---
EXAM DATE/TIME: 01/15/2017 18:59 [facility] COMPARISON: CHEST SINGLE AP, December 12, 2016, 10:13. INDICATIONS : Dizziness, blurry vision. MEDICAL HISTORY : Hypertension. Congestive heart failure. Cardiovascular disease. Chronic obstructive pulmonary di sease. CVA. SURGICAL HISTORY : Hernia repair. Aortic valve replacement. ENCOUNTER: Initial ACUITY: 2 days PAIN SCORE: 0/10 LOCATION: Chest/head. FINDINGS: Previous aortic stent graft appears stable from November. Stable basilar airspace disease, left greater t yun right. Cardiomegaly. No significant effusion. No pneumothorax. CONCLUSION: 1. Stable basilar airspace disease, left greater than right. Previous median sternotomy and stent gra ft aorta. Gabino Huber MD on January 15, 2017 at 19:53 Board Certified Radiologist. This report was verified electronically.
--- NOTE | 2017-01-15 20:14 | RADRPT ---
EXAM DATE/TIME: 01/15/2017 20:02 [facility] COMPARISON: No previous studies available for comparison. INDICATIONS : Blurred vision. Cephalgia. RADIATION DOSE: 34.52 CTDIvol (mGy) MEDICAL HISTORY : Cardiovascular disease. SURGICAL HISTORY : None. ENCOUNTER: Initial ACUITY: 1 day PAIN SCALE: 8/10 LOCATION: cranial TECHNIQUE: Multiple contiguous axial images were obtained of the head. Using automated exposure control and adj ustment of the mA and/or kV according to patient size, radiation dose was kept as low as reasonably a chievable to obtain optimal diagnostic quality images. DICOM format image data is available electro nically for review and comparison. FINDINGS: There is low attenuation in the medial aspect of the right occipital lobe most characteristic of a jimenez bacute right posterior cerebral artery distribution infarction. There are previous lacunar infarcts i n both cerebellar hemispheres worse on the left side. There is cortical volume loss. No hydrocephalus . CONCLUSION: 1. Subacute infarct of the right posterior cerebral artery distribution involving the right occipital lobe with mild localized mass effect. No midline shift. Multiple smaller remote infarctions in the c erebellar hemispheres bilaterally. Remote lacunar infarcts in the basal ganglia as well. Gabino Huber MD on January 15, 2017 at 20:11 Board Certified Radiologist. This report was verified electronically.
--- NOTE | 2017-01-15 20:27 | PD ---
Physical Exam Date Seen by Provider: Jan 15, 2017 Time Seen by Provider: 20:26 Narrative I am resuming care for this patient. Please refer to Herson Cho PA-C note for full H&P. In short patient here with c/o headache for the past several days. He was seen by his PCP office and told he has allergies/sinus issues. He reports a headache around the frontal part of his head. He says that he lost his vision around 11am which is what prompted him to come to the ED. Data Data Last Documented VS Vital Signs Date Time Temp Pulse Resp B/P Pulse Ox O2 Delivery O2 Flow Rate FiO2 01/15/17 20:49 87 18 155/75 100 Room Air 01/15/17 17:37 97.8 Orders Electrocardiogram (01/15/17 18:40) Complete Blood Count With Diff (01/15/17 18:40) Comprehensive Metabolic Panel (01/15/17 18:40) Prothrombin Time / Inr (Pt) (01/15/17 18:40) Act Partial Throm Time (Ptt) (01/15/17 18:40) Magnesium (Mg) (01/15/17 18:40) Thyroid Stimulating Hormone (01/15/17 18:40) Chest, Single Ap (01/15/17 18:40) Iv Access Insert/Monitor (01/15/17 18:40) Ecg Monitoring (01/15/17 18:40) Oximetry (01/15/17 18:40) Ct Brain W/O Iv Contrast(Rout) (01/15/17 19:23) Aspirin (Aspirin) (01/15/17 20:30) Admit Order (Ed Use Only) (01/15/17 21:39) Admit To Inpatient (01/15/17 ) Nih Stroke Scale - Nihss .On admission and discharge (01/15/17 21:38) Consult Pt Eval & Treat (01/15/17 21:38) Case Management Consult (01/15/17 ) Activity Bed Rest (01/15/17 21:38) Nursing Bedside Swallow Assess .ONCE (01/15/17 21:38) Scd Bilateral/Knee High SONAM.QSHIFT (01/15/17 21:38) Diet Npo (01/16/17 Breakfast) Hemoglobin (Hgb) A1c (01/15/17 21:38) Lipid Profile (01/16/17 06:00) Resp Oxygen Rich C Titrat 1-4 L (01/15/17 ) ^ Hold Medication (01/15/17 21:38) Consult Neurology (01/15/17 ) Sodium Chloride 0.9% Flush (Ns Flush) (01/16/17 09:00) Sodium Chloride 0.9% Flush (Ns Flush) (01/15/17 21:45) Bedside Glucose SONAM.AC&HS (01/15/17 21:38) Consult Rehab Medicine (01/15/17 21:38) Analytical Consultant / Telemetry SONAM.Q8H (01/15/17 21:38) Consult Stoke Navigator (01/15/17 ) Inpatient Certification (01/15/17 ) Labs Laboratory Tests Test 01/15/17 18:50 White Blood Count 10.7 TH/MM3 Red Blood Count 4.28 MIL/MM3 Hemoglobin 10.3 GM/DL Hematocrit 33.4 % Mean Corpuscular Volume 78.1 FL Mean Corpuscular Hemoglobin 24.0 PG Mean Corpuscular Hemoglobin 30.8 % Concent Red Cell Distribution Width 20.8 % Platelet Count 231 TH/MM3 Mean Platelet Volume 8.1 FL Neutrophils (%) (Auto) 78.1 % Lymphocytes (%) (Auto) 9.3 % Monocytes (%) (Auto) 10.5 % Eosinophils (%) (Auto) 1.6 % Basophils (%) (Auto) 0.5 % Neutrophils # (Auto) 8.3 TH/MM3 Lymphocytes # (Auto) 1.0 TH/MM3 Monocytes # (Auto) 1.1 TH/MM3 Eosinophils # (Auto) 0.2 TH/MM3 Basophils # (Auto) 0.1 TH/MM3 CBC Comment DIFF FINAL Differential Comment Prothrombin Time 17.3 SEC Prothromb Time International 1.5 RATIO Ratio Activated Partial 30.3 SEC Thromboplast Time Sodium Level 141 MEQ/L Potassium Level 3.6 MEQ/L Chloride Level 107 MEQ/L Carbon Dioxide Level 22.3 MEQ/L Anion Gap 12 MEQ/L Blood Urea Nitrogen 36 MG/DL Creatinine 2.36 MG/DL Estimat Glomerular Filtration 28 ML/MIN Rate Random Glucose 87 MG/DL Calcium Level 9.0 MG/DL Magnesium Level 2.5 MG/DL Total Bilirubin 1.1 MG/DL Aspartate Amino Transf 17 U/L (AST/SGOT) Alanine Aminotransferase 17 U/L (ALT/SGPT) Alkaline Phosphatase 71 U/L Total Protein 7.0 GM/DL Albumin 3.6 GM/DL Thyroid Stimulating Hormone 1.500 uIU/ML 3rd Gen [facility] Medical Record Reviewed: Yes Supervised Visit with YVAN: No Differential Diagnosis CVA, ICH, sinusitis, migraine, Marfan Narrative Course 61 yr old male with Marfan's here with c/o headache and loss of vision. CT brain with subacute infarct. Last Impressions Head CT 01/15/17 192 Signed Impressions: Service Date/Time: , January 15, 2017 20:02 - CONCLUSION: 1. Subacute infarct of the right posterior cerebral artery distribution involving the right occipital lobe with mild localized mass effect. No midline shift. Multiple smaller remote infarctions in the cerebellar hemispheres bilaterally. Remote lacunar infarcts in the basal ganglia as well. Gabino Huber MD Chest X-Ray 01/15/17 1840 Signed Impressions: Service Date/Time: , January 15, 2017 18:59 - CONCLUSION: 1. Stable basilar airspace disease, left greater than right. Previous median sternotomy and stent graft aorta. Gabino Huber MD 2101: Called lab to find out ETA for chemistry. Currently pending. Laboratory Tests Test 01/15/17 18:50 White Blood Count 10.7 TH/MM3 Red Blood Count 4.28 MIL/MM3 Hemoglobin 10.3 GM/DL Hematocrit 33.4 % Mean Corpuscular Volume 78.1 FL Mean Corpuscular Hemoglobin 24.0 PG Mean Corpuscular Hemoglobin 30.8 % Concent Red Cell Distribution Width 20.8 % Platelet Count 231 TH/MM3 Mean Platelet Volume 8.1 FL Neutrophils (%) (Auto) 78.1 % Lymphocytes (%) (Auto) 9.3 % Monocytes (%) (Auto) 10.5 % Eosinophils (%) (Auto) 1.6 % Basophils (%) (Auto) 0.5 % Neutrophils # (Auto) 8.3 TH/MM3 Lymphocytes # (Auto) 1.0 TH/MM3 Monocytes # (Auto) 1.1 TH/MM3 Eosinophils # (Auto) 0.2 TH/MM3 Basophils # (Auto) 0.1 TH/MM3 CBC Comment DIFF FINAL Differential Comment Prothrombin Time 17.3 SEC Prothromb Time International 1.5 RATIO Ratio Activated Partial 30.3 SEC Thromboplast Time Sodium Level 141 MEQ/L Potassium Level 3.6 MEQ/L Chloride Level 107 MEQ/L Carbon Dioxide Level 22.3 MEQ/L Anion Gap 12 MEQ/L Blood Urea Nitrogen 36 MG/DL Creatinine 2.36 MG/DL Estimat Glomerular Filtration 28 ML/MIN Rate Random Glucose 87 MG/DL Calcium Level 9.0 MG/DL Magnesium Level 2.5 MG/DL Total Bilirubin 1.1 MG/DL Aspartate Amino Transf 17 U/L (AST/SGOT) Alanine Aminotransferase 17 U/L (ALT/SGPT) Alkaline Phosphatase 71 U/L Total Protein 7.0 GM/DL Albumin 3.6 GM/DL Thyroid Stimulating Hormone 1.500 uIU/ML 3rd Gen Case discussed with Dr. Lucia; we recommend admission. Case discussed with Dr. Avila, who will resume care of this patient. All results were discussed with the patient in the presence of Dr. Lucia. He agreed with the treatment plan. Diagnosis Primary Impression: CVA (cerebral vascular accident) Qualified Code: I63.9 - Cerebrovascular accident (CVA), unspecified mechanism Admitting Information Admitting Physician Requests: Admit Condition: Stable Zehra Avendaño Jan 15, 2017 20:27
[2017-01-15] MEDS ORDERED: ASPIRIN 325 MG TAB PO ONE (20:30)
[2017-01-15] MEDS ORDERED: FERR325C PO (20:55)
[2017-01-15] MEDS ORDERED: BUME2TAB PO (20:55)
[2017-01-15] MEDS ORDERED: PANT20TA2 PO (20:55)
[2017-01-15 21:04] LABS: ANION GAP 12 MEQ/L (5-15); BICARBONATE 22.3 MEQ/L (21.0-32.0); BLOOD UREA NITROGEN 36 MG/DL (7-18); CHLORIDE 107 MEQ/L (98-107); MAGNESIUM 2.5 MG/DL (1.5-2.5); POTASSIUM 3.6 MEQ/L (3.5-5.1); SODIUM (NA) 141 MEQ/L (136-145)
[2017-01-15 21:05] LABS: AST (GOT) 17 U/L (15-37); GLOMERULAR FILTRATION RATE 28 ML/MIN (>89)
[2017-01-15 21:15] LABS: ALKALINE PHOSPHATASE 71 U/L (45-117); ALT (GPT) 17 U/L (12-78); TOTAL BILIRUBIN ADULT 1.1 MG/DL (0.2-1.0)
[2017-01-15] MEDS ORDERED: SODIUM CHLORIDE 0.9% FLUSH 5 ML FLUSH IV FLUSH PRN (21:45)
[2017-01-15] MEDS ORDERED: HEPARIN SODIUM - IV 10,000 UNITS/10 ML VIAL IV ONE (21:45)
[2017-01-15] MEDS ORDERED: WARFARIN SOD 10 MG TAB PO ONE (21:45)
--- NOTE | 2017-01-15 21:49 | EKG ---
Date Performed: 01/15/2017 Time Performed: 18:51:55 PTAGE: 61 years EKG: Sinus rhythm WITH OCCASIONAL VENTRICULAR PREMATURE COMPLEXES POSSIBLE LEFT ATRIAL ENLARGEMENT INTRAVENTRICULAR CO NDUCTION DELAY ABNORMAL ECG No significant change from prior electrocardiogram. PREVIOUS TRACING : 12/12/2016 09.55 DOCTOR: Onel Coe Interpretating Date/Time 01/15/2017 21:47:46
[2017-01-15] MEDS: HEPARIN-D5W INJ 250 ML IV SCH (22:26)
--- NOTE | 2017-01-15 22:49 | RADRPT ---
EXAM DATE/TIME: 01/15/2017 22:00 [facility] COMPARISON: No previous studies available for comparison. INDICATIONS : Cerebrovascular accident. MEDICAL HISTORY : Myocardial infarction. Congestive heart failure. Chronic obstructive pulmonary disease. Anticoagulant therapy, Coumadin. Renal calculi. Scoliosis. SURGICAL HISTORY : Aortic valve replaced. Hiatal hernia repair. Femoral aneurysm repair. ENCOUNTER: Initial ACUITY: 1 day PAIN SCORE: 0/10 LOCATION: Bilateral neck PEAK SYSTOLIC VELOCITIES (cm/sec): ICA/CCA RATIO: Right: 1.5 Left: 4.6 ICA: Right: 155 Left: 377 CCA: Right: 103 Left: 82 ECA: Right: 121 Left: 76 VERTEBRAL: Right: 88 antegrade Left: 97 antegrade Elevated flow velocities and ICA/CCA ratios have been found to correlate with increased degrees of vessel stenosis, calculated as percentage of diameter relative to a normal segment of distal ICA/CCA FINDINGS: There is moderate visible plaque in the left internal carotid artery with elevated ratio and velocity that may indicate a hemodynamically significant stenosis. There is mild plaque on the right side wit hout evidence for hemodynamically significant stenosis. Vertebral artery flow antegrade bilaterally. CONCLUSION: 1. Moderate visible plaque left internal carotid artery with elevated ratio and velocity that could b e characteristic of a hemodynamically significant stenosis. This would be better evaluated with CTA c arotid. Gabino Huber MD on January 15, 2017 at 22:46 Board Certified Radiologist. This report was verified electronically.
[2017-01-16] VITALS (9 sets, daily range): BP systolic 107–157; BP diastolic 54–84; PULSE 54–88; RESP 16–18; TEMP 96.6–98.8; O2SAT 94–98
[2017-01-16] MEDS ORDERED: HEPARIN SODIUM - IV 10,000 UNITS/10 ML VIAL IV PRN ×2 (03:45)
--- NOTE | 2017-01-16 04:08 | HHI.HP ---
HPI [facility] Physician Non-Staff Admission Diagnosis Subacute CVA Diagnoses: (1) CVA (cerebral vascular accident) Chief Complaint: acute visual impairment Travel History International Travel<30 Days: No Contact w/Intl Traveler <30 Da: No Traveled to Known Affected Are: No History of Present Illness Written by Fabiana Higgins, acting as scribe for Dr. Avila on 01/16/17 at 03:48. Difficulty seeing centrally, peripheral vision poor. Symptoms started at 11 a.m. Denies any weakness Patient reports headache went from mild to severe Denies any history of headaches Reports fevers following aneurysm repair - October 2016 - for about one month - has been fever free for about a month Denies nausea, vomiting, hematuria, dysuria, hematochezia, or abdominal pain INR 3.9 on Thursday, coumadin was stopped x 1 day; Went to [facility] last week on Thursday and was told INR was 6.1 - Coumadin stopped and was told to hold until today Not placed on antibiotics Black stools, chronically, r/t iron Currently reporting a severe headache Review of Systems Except as stated in HPI: all other systems reviewed are Neg Past Family Social History Past Medical History CABG and titanium aortic valve replacement Bundle branch block CKD Marfan's Syndrome Aortic valve replacement Denies CHF, atrial fibrillation, denies liver problems, CVA, seizures, thyroid problems, prostate problems, or cancers Past Surgical History right neck gland removed hernia repair polyps removed thumb repair . Reported Medications Reported Meds & Active Scripts Active Reported Pantoprazole (Pantoprazole Sodium) 20 Mg Tab 20 Mg PO DAILY Bumetanide 2 Mg Tab 2 Mg PO DAILY Iron (Ferrous Sulfate) 325 Mg Cap 325 Mg PO DAILY D3-2000 (Cholecalciferol (Vitamin D3)) 2,000 Unit Capsule 1 Cap PO DAILY Warfarin 5 Mg Tab 5 Mg PO DAILY Metoprolol Tartrate 50 Mg Tab 50 Mg PO BID . Allergies: Coded Allergies: Vancomycin (Verified Allergy, Severe, Hallucinations, 01/15/17) Penicillin (Verified Allergy, Mild, Hives, 01/15/17) Active Ordered Medications Current Medications Aspirin (Aspirin) 325 mg ONCE ONCE PO Last administered on 01/15/17 20:51; Start 01/15/17 at 20:30; Stop 01/15/17 at 20:31; Status DC IV Flush (NS Flush) 2 ml BID IV FLUSH ; Start 01/16/17 at 09:00 IV Flush (NS Flush) 2 ml UNSCH PRN IV FLUSH FLUSH AFTER USING IV ACCESS; Start 01/15/17 at 21:45 Heparin Sodium (Porcine) (Heparin Inj) 4,000 units ONCE ONCE IV Last administered on 01/15/17 22:28; Start 01/15/17 at 21:45; Stop 01/15/17 at 21:50 ; Status DC Heparin Sodium (Porcine) (Heparin Inj) 5,000 units UNSCH PRN IV APTT LESS THAN 25; Start 01/16/17 at 03:45 Heparin Sodium (Porcine) 2500 units 2,500 units UNSCH PRN IV APTT 25 TO 39; Start 01/16/17 at 03:45 Heparin Sodium/ Dextrose (Heparin-D5W Inj) 250 ml @ 0 mls/hr TITRATE IV Last administered on 01/15/17 22:26; Start 01/15/17 at 21:45 Warfarin Sodium (Coumadin) 10 mg ONCE ONCE PO Last administered on 01/15/17 22:49; Start 01/15/17 at 21:45; Stop 01/15/17 at 21:51; Status DC Patient Medication Teaching (Coumadin Booklet) 1 ONCE ONCE .XX Last administered on 01/15/17 22:49; Start 01/15/17 at 22:00; Stop 01/15/17 at 22:01 ; Status DC Oxycodone HCl (Roxicodone) 5 mg ONCE ONCE PO ; Start 01/16/17 at 03:45; Stop at 03:46; Status DC . Family History Father had stomach problems Social History Tobacco: quit six months ago - did smoke one cigarette yesterday Alcohol: denies Illicit Drugs: denies . Physical Exam Vital Signs Vital Signs Date Time Temp Pulse Resp B/P Pulse Ox O2 Delivery O2 Flow Rate FiO2 01/15/17 23:52 78 01/15/17 23:10 97.3 84 18 135/70 100 01/15/17 22:57 79 18 153/67 97 01/15/17 22:00 97 01/15/17 21:50 82 18 148/79 98 Room Air 01/15/17 20:49 87 18 155/75 100 Room Air 01/15/17 17:37 97.8 69 16 165/72 96 01/15/17 17:37 17 Room Air Physical Exam GENERAL: This is an older male patient complaining of severe headache. SKIN: No rashes, ecchymoses or lesions. Cool and dry. HEAD: Atraumatic. Normocephalic. EYES: No scleral icterus. No injection or drainage. ENT: Nose without bleeding, purulent drainage. NECK: Trachea midline. No JVD. CARDIOVASCULAR: Regular rate and rhythm without murmurs, gallops, or rubs. RESPIRATORY: Clear to auscultation. Breath sounds equal bilaterally. No wheezes , rales, or rhonchi. GASTROINTESTINAL: Abdomen soft, non-tender, nondistended. No guarding. MUSCULOSKELETAL: Extremities without clubbing, cyanosis, or edema. No calf tenderness. NEUROLOGICAL: Awake and alert. Motor and sensory grossly within normal limits. Normal speech. . Laboratory Laboratory Tests Test 01/15/17 18:50 White Blood Count 10.7 Red Blood Count 4.28 Hemoglobin 10.3 Hematocrit 33.4 Mean Corpuscular Volume 78.1 Mean Corpuscular Hemoglobin 24.0 Mean Corpuscular Hemoglobin 30.8 Concent Red Cell Distribution Width 20.8 Platelet Count 231 Mean Platelet Volume 8.1 Neutrophils (%) (Auto) 78.1 Lymphocytes (%) (Auto) 9.3 Monocytes (%) (Auto) 10.5 Eosinophils (%) (Auto) 1.6 Basophils (%) (Auto) 0.5 Neutrophils # (Auto) 8.3 Lymphocytes # (Auto) 1.0 Monocytes # (Auto) 1.1 Eosinophils # (Auto) 0.2 Basophils # (Auto) 0.1 CBC Comment DIFF FINAL Differential Comment Prothrombin Time 17.3 Prothromb Time International 1.5 Ratio Activated Partial 30.3 Thromboplast Time Sodium Level 141 Potassium Level 3.6 Chloride Level 107 Carbon Dioxide Level 22.3 Anion Gap 12 Blood Urea Nitrogen 36 Creatinine 2.36 Estimat Glomerular Filtration 28 Rate Random Glucose 87 Calcium Level 9.0 Magnesium Level 2.5 Total Bilirubin 1.1 Aspartate Amino Transf 17 (AST/SGOT) Alanine Aminotransferase 17 (ALT/SGPT) Alkaline Phosphatase 71 Total Protein 7.0 Albumin 3.6 Thyroid Stimulating Hormone 1.500 3rd Gen Result Diagram: 01/15/17184901/15/171849 Imaging Last Impressions Head CT 01/15/17 192 Signed Impressions: Service Date/Time: December 20:02 - CONCLUSION: 1. Subacute infarct of the right posterior cerebral artery distribution involving the right occipital lobe with mild localized mass effect. No midline shift. Multiple smaller remote infarctions in the cerebellar hemispheres bilaterally. Remote lacunar infarcts in the basal ganglia as well. Gabino Huber MD Chest X-Ray 01/15/17 184 Signed Impressions: Service Date/Time: December 18:59 - CONCLUSION: 1. Stable basilar airspace disease, left greater than right. Previous median sternotomy and stent graft aorta. Gabino Huber MD Carotid Artery Ultrasound 01/15/17 0000 Signed Impressions: Service Date/Time: December 22:00 - CONCLUSION: 1. Moderate visible plaque left internal carotid artery with elevated ratio and velocity that could be characteristic of a hemodynamically significant stenosis. This would be better evaluated with CTA carotid. Gabino Huber MD . 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 Pérez consulted - patient had also requested Dr. Pérez be consulted given worsening abdominal pain and a feeling of bulging from prior aortic aneurysm repair site Chronic renal insufficiency - BUN 36, creatinine 2.36, estimated GFR 28 - stable compared to prior labs - Cannot do contrast imaging to evaluate carotid artery stenosis given EGFR - can do MRA of carotids, however, without contrast - Avoid nephrotoxins - Monitor renal indices and follow trends Aortic Valve Replacement - mechanical valve - INR 1.5 on admission - Patient started on heparin drip and will bridge Coumadin until INR is therapeutic between 2.5 and 3.5 DVT prophylaxis - on Heparin drip . This note was transcribed by bennett [Fabiana Higgins]. I, Dr. Idalmis Avila personally performed the history, physical exam, and medical decision making; and confirmed the accuracy of the information in the transcribed note. Authenticated by Dr. Idalmis Avial on 01/16/17 at 03:48. Discussed Condition With ER physician, RN, and patient Physician Certification 2 Midnight Certification Type: Admission for Inpatient Services Order for Inpatient Services The services are ordered in accordance with Medicare regulations or non- Medicare payer requirements, as applicable. In the case of services not specified as inpatient-only, they are appropriately provided as inpatient services in accordance with the 2-midnight benchmark. Estimated LOS (days): 3 days is the estimated time the patient will need to remain in the hospital, assuming treatment plan goals are met and no additional complications. Post-Hospital Plan: Home Problem Qualifiers (1) CVA (cerebral vascular accident): Qualified Code: I63.9 - Cerebrovascular accident (CVA), unspecified mechanism Fabiana Higgins Jan 16, 2017 04:08 Idalmis Avila MD Jan 16, 2017 04:18
--- NOTE | 2017-01-16 04:46 | RADRPT ---
EXAM DATE/TIME: 01/16/2017 04:25 [facility] COMPARISON: CT BRAIN W/O CONTRAST, January 15, 2017, 20:02. INDICATIONS : New onset cephalgia. RADIATION DOSE: 56.35 CTDIvol (mGy) MEDICAL HISTORY : Cerebrovascular disease. Cardiovascular disease SURGICAL HISTORY : None. ENCOUNTER: Initial ACUITY: 2 days PAIN SCALE: 8/10 LOCATION: cranial TECHNIQUE: Multiple contiguous axial images were obtained of the head. Using automated exposure control and adj ustment of the mA and/or kV according to patient size, radiation dose was kept as low as reasonably a chievable to obtain optimal diagnostic quality images. DICOM format image data is available electro nically for review and comparison. FINDINGS: CEREBRUM: Hypodensity in the medial posterior parietal lobe/occipital lobe again identified with loss of leach-w adriane differentiation. No evidence of acute hemorrhage. No midline shift. Ventricles within normal daly its. POSTERIOR FOSSA: Old bilateral small cerebellar infarcts unchanged. EXTRACRANIAL: The visualized portion of the orbits is intact. SKULL: The calvaria is intact. No evidence of skull fracture. CONCLUSION: No significant interval change. 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 Ricardo Marie MD on January 16, 2017 at 4:42 Board Certified Radiologist. This report was verified electronically.
[2017-01-16 05:56] LABS: APTT (PATIENT) 44.7 SEC (24.3-30.1)
[2017-01-16 06:08] LABS: HDL CHOLESTEROL 24.6 MG/DL (40.0-60.0); LDL CHOLESTEROL 56 MG/DL (0-99)
[2017-01-16] MEDS: FERROUS SULFATE 325 MG (65 MG ELEMENTAL IRON) TAB PO SCH (09:01)
[2017-01-16] MEDS: SODIUM CHLORIDE 0.9% FLUSH 5 ML FLUSH IV FLUSH SCH ×2 (09:02→19:52)
[2017-01-16] MEDS: PANTOPRAZOLE SOD 20 MG DELAYED RELEASE TAB PO SCH (09:02)
[2017-01-16] MEDS: CHOLECALCIFEROL (VIT D3) 1000 UNIT TAB PO SCH (09:02)
--- NOTE | 2017-01-16 09:21 | PD.CONS ---
History of Present Illness Service Neurology Consult Requested By medical Reason for Consult stroke Primary Care Physician Non-Staff History of Present Illness 61 y/o m hx of metallic AVR on chronic anticoagulation, marfans syndrome, previous strokes, pvd with stents, quit tob 6 months ago, admitted for headache and vision loss . 6hrs prior to arrival. not tpa candidate. ct brain showed a subacute rt occipital infarct. has been having fluctuating inr's. in er it was 1.5. eating breakfast, minimal xiao at present. no focal weakness. Review of Systems Except as stated in HPI: all other systems reviewed are Neg Past Family Social History Past Medical History CABG and titanium aortic valve replacement Bundle branch block CKD Marfan's Syndrome Aortic valve replacement Past Surgical History right neck gland removed hernia repair polyps removed thumb repair . Reported Medications Reported Meds & Active Scripts Active Reported Pantoprazole (Pantoprazole Sodium) 20 Mg Tab 20 Mg PO DAILY Bumetanide 2 Mg Tab 2 Mg PO DAILY Iron (Ferrous Sulfate) 325 Mg Cap 325 Mg PO DAILY D3-2000 (Cholecalciferol (Vitamin D3)) 2,000 Unit Capsule 1 Cap PO DAILY Warfarin 5 Mg Tab 5 Mg PO DAILY Metoprolol Tartrate 50 Mg Tab 50 Mg PO BID . Allergies: Coded Allergies: Vancomycin (Verified Allergy, Severe, Hallucinations, 01/15/17) Penicillin (Verified Allergy, Mild, Hives, 01/15/17 . Family History no hx of stroke Social History Tobacco: quit six months ago - did smoke one cigarette yesterday Alcohol: denies Illicit Drugs: denies goes to [place] for healthcare; but did recently get a private MD . Review of Systems All other ROS: ROS reviewed as documented in chart Past Family Social History Allergies: Coded Allergies: Vancomycin (Verified Allergy, Severe, Hallucinations, 01/15/17) Penicillin (Verified Allergy, Mild, Hives, 01/15/17) Active Ordered Medications Current Medications Medications (Trade) Dose Ordered Sig/Katharina Route Start Time Stop Time Status Last Admin (NS Flush) 2 ml BID IV FLUSH 01/16/17 09:00 01/16/17 09:02 (NS Flush) 2 ml UNSCH PRN IV FLUSH 01/15/17 21:45 (Heparin Inj) 5,000 units UNSCH PRN IV 01/16/17 03:45 Heparin Sodium (Porcine) 2500 units 2,500 units UNSCH PRN IV 01/16/17 03:45 (Heparin-D5W Inj) 250 ml @ 0 mls/hr TITRATE IV 01/15/17 21:45 01/15/17 22:26 (Protonix) 20 mg DAILY PO 01/16/17 09:00 01/16/17 09:02 (Coumadin) 5 mg DAILY@16 PO 01/16/17 16:00 (Vitamin D3) 2,000 units DAILY PO 01/16/17 09:00 01/16/17 09:02 (Ferrous Sulfate) 325 mg DAILY PO 01/16/17 09:00 01/16/17 09:01 Exam I&O / VS 01/15/17 01/15/17 01/16/17 14:59 22:59 06:59 Intake Total 580 ml Output Total 650 ml Balance -70 ml Intake Oral 480 ml IV Total 100 ml Output Urine Total 650 ml # Bowel Movements 0 Vital Signs Date Time Temp Pulse Resp B/P Pulse Ox O2 Delivery O2 Flow Rate FiO2 01/16/17 07:37 97 21 01/16/17 03:05 96.7 74 18 157/75 97 01/15/17 23:52 78 01/15/17 23:10 97.3 84 18 135/70 100 01/15/17 22:57 79 18 153/67 97 01/15/17 22:00 97 01/15/17 21:50 82 18 148/79 98 Room Air 01/15/17 20:49 87 18 155/75 100 Room Air 01/15/17 17:37 97.8 69 16 165/72 96 01/15/17 17:37 17 Room Air General: Alert and Oriented, No acute distress Eye: EOMI Respiratory: Non-labored respirations Neurologic: Alert, Oriented, Normal motor Psychiatric: Cooperative, Appropriate mood & affect, Normal judgement, Non- suicidal Exam Comments alert ox 3, sitting up in bed, was finishing breakfast when I came in to see him. left HH curvilinear, face sym, no drift, no dystaxia, no neglect, gait not assessed 2/2 fall risk Review/Management Diagnosis/Plan: (1) Acute right CASSANDRA ARCHITECT stroke Plan: probable cardioembolic vs small vessel dz inr subtherapeutic lipids well controlled not related to left carotid dz recs unable to get mri/mra 2/2 metal valve. unable to get cta's 2/2 elevated Cr resume anticoagulation; due to inr fluctuations resulting in secondary embolic dz, may benefit from home INR monitor p.t./o.t./s.t (2) Left-sided carotid artery disease Plan: should get vascular surgery eval outpatient; repeat carotid u/s outpatient (3) History of aortic valve replacement with metallic valve Plan: on coumadin (4) Chronic ischemic left MCA stroke (5) Chronic arterial ischemic stroke, vertebrobasilar, cerebellar (6) Thoracic aortic aneurysm without rupture Forrest Virk MD Jan 16, 2017 09:21
[2017-01-16] MEDS: ACETAMINOPHEN/HYDROcodone 325 MG/5 MG TAB PO PRN ×2 (13:39→18:04)
[2017-01-16] MEDS ORDERED: DOCUSATE SODIUM 50 MG/SENNA 8.6 MG TAB PO PRN (13:45)
[2017-01-16 13:56] LABS: APTT (PATIENT) 125.2 SEC (24.3-30.1)
[2017-01-16 15:23] LABS: HEMOGLOBIN A1a 1.1 %; HEMOGLOBIN A1b 1.7 %; HEMOGLOBIN P3 5.7 %
[2017-01-16] MEDS: WARFARIN SOD 5 MG TAB PO SCH (16:22)
[2017-01-16 16:54] LABS: APTT (PATIENT) 53.9 SEC (24.3-30.1)
--- NOTE | 2017-01-16 17:45 | PD.CONS ---
[facility] Service Rehabilitation Medicine Consult Requested By Dr. Avila Reason for Consult Comprehensive rehabilitation evaluation. Primary Care Physician Non-Staff History of Present Illness Amrik Nagy is a 61-year-old male admitted [facility] 01/15/17 with impaired peripheral vision and headache. Head CT showed subacute right posterior cerebral artery distribution/right occipital lobe. Also noted were remote multiple smaller infarcts in the cerebellar hemispheres bilaterally and remote lacunar infarcts in basal ganglia. Left carotid ultrasound showed moderately visible plaque in the left ICA possibly hemodynamically significant. Follow-up carotid ultrasound and outpatient vascular surgery has been recommended. Review of Systems Constitutional: DENIES: Fatigue Eyes: COMPLAINS OF: Vision loss, DENIES: Diplopia Ears, nose, mouth, throat: DENIES: Throat pain Respiratory: COMPLAINS OF: Shortness of breath (with exertion) Cardiovascular: DENIES: Chest pain Gastrointestinal: COMPLAINS OF: Constipation, Difficulty Swallowing, DENIES: Abdominal pain Genitourinary: DENIES: Urinary incontinence Integumentary: DENIES: Rash Hematologic/lymphatic: DENIES: Bruising Immunologic/allergic: DENIES: Urticaria Neurologic: COMPLAINS OF: Headache (Mild), Poor Balance, DENIES: Localized weakness, Paresthesias, Speech Problems Psychiatric: DENIES: Confusion Past Family Social History Allergies: Coded Allergies: Vancomycin (Verified Allergy, Severe, Hallucinations, 01/15/17) Penicillin (Verified Allergy, Mild, Hives, 01/15/17) Past Medical History Marfan syndrome Peripheral vascular disease Bundle-branch block Previous stroke Past Surgical History Titanium aortic valve replacement CABG Removal of neck gland Hernia repair Polypectomy Thumb surgery Current Medications Current Medications Medications (Trade) Dose Ordered Sig/Katharina Route Start Time Stop Time Status Last Admin (NS Flush) 2 ml BID IV FLUSH 01/16/17 09:00 01/16/17 09:02 (NS Flush) 2 ml UNSCH PRN IV FLUSH 01/15/17 21:45 (Heparin Inj) 5,000 units UNSCH PRN IV 01/16/17 03:45 Heparin Sodium (Porcine) 2500 units 2,500 units UNSCH PRN IV 01/16/17 03:45 (Heparin-D5W Inj) 250 ml @ 0 mls/hr TITRATE IV 01/15/17 21:45 01/15/17 22:26 (Protonix) 20 mg DAILY PO 01/16/17 09:00 01/16/17 09:02 (Coumadin) 5 mg DAILY@16 PO 01/16/17 16:00 01/16/17 16:22 (Vitamin D3) 2,000 units DAILY PO 01/16/17 09:00 01/16/17 09:02 (Ferrous Sulfate) 325 mg DAILY PO 01/16/17 09:00 01/16/17 09:01 ([place] 5-325 Mg) 1 tab Q4H PRN PO 01/16/17 13:30 01/16/17 13:39 (Colace) 100 mg BID PO 01/16/17 21:00 (Bell-Colace) 1 tab DAILY PRN PO 01/16/17 13:45 Family History Father : Digestive issues Social History Prior to admission patient lived in [place], [place] with his . He reports that he intermittently uses a cane to ambulate. He lives in a trailer with 5 steps to enter reports that he has a handrail. Exam I&O / VS 01/15/17 01/15/17 01/16/17 15:00 23:00 07:00 Intake Total 580 ml Output Total 650 ml Balance -70 ml Intake Oral 480 ml IV Total 100 ml Output Urine Total 650 ml # Bowel Movements 0 Vital Signs Date Time Temp Pulse Resp B/P Pulse Ox O2 Delivery O2 Flow Rate FiO2 01/16/17 16:00 98.3 77 18 107/54 98 01/16/17 12:00 98.8 54 18 118/58 98 01/16/17 08:00 97.8 78 18 154/84 97 01/16/17 07:37 97 21 01/16/17 03:05 96.7 74 18 157/75 97 01/15/17 23:52 78 01/15/17 23:10 97.3 84 18 135/70 100 01/15/17 22:57 79 18 153/67 97 01/15/17 22:00 97 01/15/17 21:50 82 18 148/79 98 Room Air 01/15/17 20:49 87 18 155/75 100 Room Air General: No acute distress Respiratory: Lungs CTA, Non-labored respirations, BS equal Gastrointestinal: Positive Bowel Sounds, Non-Distended, Non-Tender Cardiovascular: Normal rate, Regular Rhythm Skin: Other (No Rash Noted) Musculoskeletal: ROM (Within functional limits), Swelling (None in the distal lower extremities) Psychiatric: Cooperative Assessment and Plan Diagnosis: (1) 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 Right posterior cervical artery/occipital CVA with impaired vision and decreased balance 2. Marfan syndrome 3. Peripheral vascular disease 4. Titanium aortic valve replacement 5. Coronary artery disease status post CABG 6. Left carotid stenosis for follow-up carotid ultrasound and vascular surgery evaluation as an outpatient Plan 1. Patient is progressing with mobility and now standby assist for transfers and ambulating 70 feet 2 with physical therapy contact guard. Anticipate patient should progress well 2. Tolerating regular diet and thin liquids per speech therapy 3. OT for ADL evaluation 4. Anticipate that patient will be able to return home with outpatient physical therapy. 5. Will continue to follow while hospitalized and at discharge Thank you for this consult Violet Hodges MD Jan 16, 2017 17:45
[2017-01-16] MEDS: DOCUSATE SODIUM 100 MG CAP PO SCH (19:52)
--- NOTE | 2017-01-16 22:58 | ECHRPT ---
Indication: r/o clot CONCLUSIONS Mildly dilated left ventricle. There is assymetric septal hypertrophy. The left ventricular systolic function is severely reduced with an estimated ejection fraction in th e range of 20-25%. Mild mitral valve regurgitation. Aortic valve prosthesis Echogenic oscillating mass in the aortic valve concerning for vegetation vs thrombus. Correlate Clin ically There is trace tricuspid valve regurgitation. There is estimated mild pulmonary hypertension present (range 40-50 mmHg). Recommend FRANCIE to further assess Aortic Valve BP: / HR: Rhythm: MEASUREMENTS (Male / Female) Normal Values Technical Quality:Fair 2D ECHO LV Diastolic Diameter PLAX 6.3 cm 4.2 - 5.9 / 3.9 - 5.3 cm LV Systolic Diameter PLAX 5.7 cm IVS Diastolic Thickness 2.1 cm 0.6 - 1.0 / 0.6 - 0.9 cm LVPW Diastolic Thickness 1.1 cm 0.6 - 1.0 / 0.6 - 0.9 cm LV Relative Wall Thickness 0.5 RV Internal Dim ED PLAX 3.6 cm LVOT Diameter 2.0 cm M-MODE Aortic Root Diameter MM 2.7 cm LA Systolic Diameter MM 5.9 cm LA Ao Ratio MM 2.2 DOPPLER AV Peak Velocity 301.0 cm/s AV Peak Gradient 36.2 mmHg AV Mean Gradient 19.0 mmHg AV Velocity Time Integral 44.7 cm LVOT Peak Velocity 65.4 cm/s LVOT Peak Gradient 1.7 mmHg LVOT Velocity Time Integral 12.2 cm AV Area Cont Eq vti 0.9 cm AV Area Cont Eq pk 0.7 cm MV Area PHT 2.8 cm Mitral E Point Velocity 72.6 cm/s Mitral A Point Velocity 46.9 cm/s Mitral E to A Ratio 1.5 TR Peak Velocity 312.0 cm/s TR Peak Gradient 38.9 mmHg FINDINGS LEFT VENTRICLE Mildly dilated left ventricle. There is assymetric septal hypertrophy. The left ventricular systolic function is severely reduced with an estimated ejection fraction in th e range of 20-25%. RIGHT VENTRICLE Normal right ventricular size and systolic function. LEFT ATRIUM The left atrial size is normal. RIGHT ATRIUM The right atrial size is normal. ATRIAL SEPTUM Normal atrial septal thickness without atrial level shunting by limited color doppler interrogation. AORTA The aortic root and proximal ascending aorta are normal in size on limited imaging. MITRAL VALVE Structurally normal mitral valve. Mild mitral valve regurgitation. No mitral valve stenosis. AORTIC VALVE aortic valve replacemnet 1998 vegetation on aortic valve AV max gradient is 26 mean 19 TRICUSPID VALVE Structurally normal tricuspid valve. There is trace tricuspid valve regurgitation. There is estimated mild pulmonary hypertension present (range 40-50 mmHg). PULMONARY VALVE The pulmonary valve is not well visualized. VESSELS The inferior vena cava is normal in size. PERICARDIUM No pericardial effusion. Michael Hummel MD (Electronically Signed) Final Date:16 January 2017 22:57
[2017-01-17] VITALS (8 sets, daily range): BP systolic 110–160; BP diastolic 52–90; PULSE 86–108; RESP 17–19; TEMP 96.3–99; O2SAT 92–98
[2017-01-17] MEDS: HEPARIN-D5W INJ 250 ML IV SCH ×2 (01:41→23:45)
[2017-01-17] MEDS: ACETAMINOPHEN/HYDROcodone 325 MG/5 MG TAB PO PRN (01:43)
[2017-01-17 02:05] LABS: APTT (PATIENT) 36.6 SEC (24.3-30.1); INTERNATIONAL NORMALIZED RATIO 1.7 RATIO; PROTHROMBIN TIME - PATIENT 18.7 SEC (9.8-11.6)
[2017-01-17] MEDS: CHOLECALCIFEROL (VIT D3) 1000 UNIT TAB PO SCH (08:17)
[2017-01-17] MEDS: DOCUSATE SODIUM 100 MG CAP PO SCH ×2 (08:18→20:47)
[2017-01-17] MEDS: PANTOPRAZOLE SOD 20 MG DELAYED RELEASE TAB PO SCH (08:18)
[2017-01-17] MEDS: FERROUS SULFATE 325 MG (65 MG ELEMENTAL IRON) TAB PO SCH (08:18)
[2017-01-17] MEDS: SODIUM CHLORIDE 0.9% FLUSH 5 ML FLUSH IV FLUSH SCH ×2 (08:19→20:50)
[2017-01-17] MEDS ORDERED: GLYCERIN ADULT 2 GM SUPP RECTAL PRN (09:00)
[2017-01-17] MEDS ORDERED: MAGNESIUM HYDROXIDE SUSP 30 ML CUP PO PRN (09:00)
--- NOTE | 2017-01-17 09:35 | HHI.PR ---
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 unable to get cta's 2/2 elevated Cr resume anticoagulation; due to inr fluctuations resulting in secondary embolic dz, may benefit from home INR monitor p.t./o.t./s.t d/c planning; seen by rehab md (3) Left-sided carotid artery disease Plan: should get vascular surgery eval outpatient; repeat carotid u/s outpatient (4) History of aortic valve replacement with metallic valve Plan: on coumadin (5) Chronic ischemic left MCA stroke (6) Chronic arterial ischemic stroke, vertebrobasilar, cerebellar (7) Thoracic aortic aneurysm without rupture Subjective Subjective Comments No acute events reported +anxiety, panic attacks, wants med; crying at bedside denies any suicidal ideation/thoughts No chest pain No dyspnea Active Medications Current Medications Medications (Trade) Dose Ordered Sig/Katharina Route Start Time Stop Time Status Last Admin (NS Flush) 2 ml BID IV FLUSH 01/16/17 09:00 01/17/17 08:19 (NS Flush) 2 ml UNSCH PRN IV FLUSH 01/15/17 21:45 (Heparin Inj) 5,000 units UNSCH PRN IV 01/16/17 03:45 Heparin Sodium (Porcine) 2500 units 2,500 units UNSCH PRN IV 01/16/17 03:45 (Heparin-D5W Inj) 250 ml @ 0 mls/hr TITRATE IV 01/15/17 21:45 01/17/17 01:41 (Protonix) 20 mg DAILY PO 01/16/17 09:00 01/17/17 08:18 (Coumadin) 5 mg DAILY@16 PO 01/16/17 16:00 01/16/17 16:22 (Vitamin D3) 2,000 units DAILY PO 01/16/17 09:00 01/17/17 08:17 (Ferrous Sulfate) 325 mg DAILY PO 01/16/17 09:00 01/17/17 08:18 (Colace) 100 mg BID PO 01/16/17 21:00 01/17/17 08:18 (Bell-Colace) 1 tab DAILY PRN PO 01/16/17 13:45 01/16/17 18:06 (Roxicodone) 5 mg Q4H PRN PO 01/17/17 09:00 01/17/17 09:27 (Milk Of Magnesia Liq) 30 ml BID PRN PO 01/17/17 09:00 01/17/17 09:27 (Glycerin Adult Supp) 2 gm DAILY PRN RECTAL 01/17/17 09:00 Allergies Allergies Coded Allergies Vancomycin (Verified Allergy, Severe, Hallucinations, 01/15/17) Penicillin (Verified Allergy, Mild, Hives, 01/15/17) Review of Systems All other ROS: ROS reviewed as documented in chart Exam I&O / VS 01/16/17 01/16/17 01/17/17 14:59 22:59 06:59 Intake Total 960 ml 605 ml 548 ml Balance 960 ml 605 ml 548 ml Intake Oral 960 ml 605 ml 480 ml IV Total 68 ml # Voids 4 1 1 # Bowel Movements 0 0 0 Vital Signs Date Time Temp Pulse Resp B/P Pulse Ox O2 Delivery O2 Flow Rate FiO2 01/17/17 08:36 108 01/17/17 08:00 96.7 93 18 159/90 96 01/17/17 04:20 97.9 98 18 125/74 96 01/17/17 00:15 96.9 88 17 138/72 92 01/16/17 21:21 98 21 01/16/17 20:20 98.4 84 16 107/56 96 01/16/17 20:00 88 01/16/17 16:00 98.3 77 18 107/54 98 01/16/17 12:00 98.8 54 18 118/58 98 General: Alert and Oriented, No acute distress Eye: EOMI Respiratory: Non-labored respirations Neurologic: Alert, Oriented, Normal motor Psychiatric: Cooperative, Appropriate mood & affect, Normal judgement, Non- suicidal Exam Comments alert ox 3, sitting up in bed,distressed; crying about his medical condition/VA , consolable, left HH curvilinear, face sym, no drift, no dystaxia, no neglect , gait not assessed 2/2 fall risk Objective Micro and Labs Laboratory Tests Test 01/16/17 01/16/1717 13:10 16:30 01:08 Activated Partial 125.2 53.9 36.6 Thromboplast Time Prothrombin Time 18.7 Prothromb Time International 1.7 Ratio Forrest Virk MD Jan 17, 2017 09:35
[2017-01-17] MEDS: SERTRALINE HCL 50 MG TAB PO SCH (10:00)
[2017-01-17] MEDS ORDERED: ALPRAZolam 0.5 MG TAB PO PRN (10:00)
[2017-01-17] MEDS ORDERED: PILL SPLITTER OTHER PRN (10:00)
[2017-01-17 11:09] LABS: APTT (PATIENT) 38.1 SEC (24.3-30.1)
--- NOTE | 2017-01-17 11:35 | HHI.PR ---
Subjective Remarks CT shows evidence of CVA. Visual deficits remain. Physical therapy evaluations ongoing. Discussing patient's cardiac status he has exertional dyspnea and severe fatigue with any short-term ambulation. His last ejection fraction on her record was approximately 20%. He meets NYHA class III criteria. He has some chronic kidney disease which is apparently stable for some time and may be related to CHF. He appears to be a good candidate for trial of Entresto with close monitoring of renal function. Objective Vital Signs Date Time Temp Pulse Resp B/P Pulse Ox O2 Delivery O2 Flow Rate FiO2 01/17/17 08:36 108 01/17/17 08:00 96.7 93 18 159/90 96 01/17/17 04:20 97.9 98 18 125/74 96 01/17/17 00:15 96.9 88 17 138/72 92 01/16/17 21:21 98 21 01/16/17 20:20 98.4 84 16 107/56 96 01/16/17 20:00 88 01/16/17 16:00 98.3 77 18 107/54 98 01/16/17 12:00 98.8 54 18 118/58 98 I/O 01/16/17 01/16/17 01/16/17 01/17/17 01/17/17 01/17/17 07:00 15:00 23:00 07:00 15:00 23:00 Intake Total 580 ml 960 ml 605 ml 548 ml Output Total 650 ml Balance -70 ml 960 ml 605 ml 548 ml Intake Oral 480 ml 960 ml 605 ml 480 ml IV Total 100 ml 68 ml Output Urine Total 650 ml # Voids 4 1 1 # Bowel Movements 0 0 0 0 Result Diagram: 01/15/17184901/15/171849 Imaging Last Impressions Head CT 01/16/17 0000 Signed Impressions: Service Date/Time: Monday, January 16, 2017 04:25 - CONCLUSION: No significant interval change. 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 Ricardo Marie MD Chest X-Ray 01/15/17 1840 Signed Impressions: Service Date/Time: December 18:59 - CONCLUSION: 1. Stable basilar airspace disease, left greater than right. Previous median sternotomy and stent graft aorta. Gabino Huber MD Carotid Artery Ultrasound 01/15/17 0000 Signed Impressions: Service Date/Time: December 22:00 - CONCLUSION: 1. Moderate visible plaque left internal carotid artery with elevated ratio and velocity that could be characteristic of a hemodynamically significant stenosis. This would be better evaluated with CTA carotid. Gabino Huber MD Objective Remarks GENERAL: NAD, A&Ox3 HEAD: Normocephalic. NECK: Supple, trachea midline. No lymphadenopathy. EYES: No scleral icterus. No injection or drainage. CARDIOVASCULAR: Regular rate and rhythm without murmurs, gallops, or rubs. RESPIRATORY: Breath sounds equal bilaterally. No accessory muscle use. GASTROINTESTINAL: Abdomen soft, non-tender, nondistended. MUSCULOSKELETAL: No cyanosis. Lower extremity edema SKIN: Warm and dry. NEURO: No focal neurological deficitis. 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 He has NYHA class III CHF at baseline. He has not tried Entresto. Chronic kidney disease is present but may be secondary to poor perfusion. A trial of Entresto will be started here. Additionally waves of anxiety today and his anxiety treatments or change to Valium for longer acting duration. Zoloft has been started but will take longer to have an effect. Acute CVA History of CVA PT, OT Neurology following Continue heparin drip Follow INR On bridging to Coumadin given low INR admit May need rehabilitation at discharge continue to evaluate while inpatient Echocardiogram shows EF of 20% Class III NYHA systolic CHF Follow fluid balance Start trial of Entresto CKD Follow renal function Possible etiology for chronic kidney disease is poor perfusion Monitor for any worsening of renal disease with trial of Entresto Avoid nephrotoxins Carotid artery stenosis Vascular surgeon consulted He is a poor candidate for contrast imaging studies Aortic Valve Replacement - mechanical valve Goal is INR is therapeutic between 2.5 and 3.5 Follow INR Continue Coumadin DVT prophylaxis Heparin drip Elton Joel MD Jan 17, 2017 11:35
[2017-01-17] MEDS ORDERED: DIAZEPAM 10 MG TAB PO PRN (12:00)
[2017-01-17] MEDS: SACUBITRIL/VALSARTAN 49 MG-51 MG TAB PO SCH ×2 (13:01→20:47)
[2017-01-17] MEDS: WARFARIN SOD 5 MG TAB PO SCH (16:23)
[2017-01-17] MEDS: DIAZEPAM 5 MG TAB PO PRN (18:26)
[2017-01-17 19:02] LABS: APTT (PATIENT) 39.6 SEC (24.3-30.1)
[2017-01-18] VITALS (7 sets, daily range): BP systolic 96–143; BP diastolic 45–69; PULSE 76–91; RESP 18–20; TEMP 96–98.5; O2SAT 92–99
[2017-01-18] MEDS: DIAZEPAM 5 MG TAB PO PRN ×2 (02:39→10:30)
[2017-01-18 06:15] LABS: HEMATOCRIT 30.3 % (39.0-51.0); MEAN CELL VOLUME 78.9 FL (80.0-100.0); MEAN CORPUSCULAR HEMOGLOBIN 24.2 PG (27.0-34.0); MEAN CORPUSCULAR HGB CONC 30.7 % (32.0-36.0); PLATELET COUNT 193 TH/MM3 (150-450); RED BLOOD COUNT 3.84 MIL/MM3 (4.50-5.90); RED CELL DISTRIBUTION WIDTH 24.9 % (11.6-17.2); REVIEW FLAG FINAL; WHITE BLOOD COUNT 6.6 TH/MM3 (4.0-11.0)
[2017-01-18 06:17] LABS: INTERNATIONAL NORMALIZED RATIO 2.2 RATIO; PROTHROMBIN TIME - PATIENT 24.8 SEC (9.8-11.6)
[2017-01-18 06:35] LABS: BICARBONATE 25.7 MEQ/L (21.0-32.0); POTASSIUM 3.6 MEQ/L (3.5-5.1)
[2017-01-18] MEDS: PANTOPRAZOLE SOD 20 MG DELAYED RELEASE TAB PO SCH (08:46)
[2017-01-18] MEDS: SACUBITRIL/VALSARTAN 49 MG-51 MG TAB PO SCH ×2 (08:46→21:49)
[2017-01-18] MEDS: CHOLECALCIFEROL (VIT D3) 1000 UNIT TAB PO SCH (08:46)
[2017-01-18] MEDS: SERTRALINE HCL 50 MG TAB PO SCH (08:47)
[2017-01-18] MEDS: SODIUM CHLORIDE 0.9% FLUSH 5 ML FLUSH IV FLUSH SCH ×2 (08:47→21:55)
[2017-01-18] MEDS: DOCUSATE SODIUM 100 MG CAP PO SCH ×2 (08:47→21:54)
[2017-01-18] MEDS: FERROUS SULFATE 325 MG (65 MG ELEMENTAL IRON) TAB PO SCH (08:47)
--- NOTE | 2017-01-18 10:08 | HHI.PR ---
Subjective Remarks Mr. Nagy is feeling significantly better today. He is more ambulatory. Much of this effect may be secondary to starting his Entresto. No worsening of renal function is seen. INR is 2.2 today. Objective Vital Signs Date Time Temp Pulse Resp B/P Pulse Ox O2 Delivery O2 Flow Rate FiO2 01/18/17 08:00 96.8 91 18 122/63 98 01/18/17 04:10 97.4 87 19 133/69 99 01/17/17 23:24 98.1 90 19 110/52 98 01/17/17 19:26 18 01/17/17 19:20 96.7 90 19 137/77 97 01/17/17 16:00 99.0 86 18 140/76 97 01/17/17 12:00 96.3 95 19 160/84 97 I/O 01/17/17 01/17/17 01/17/17 01/18/17 01/18/17 01/18/17 06:59 14:59 22:59 06:59 14:59 22:59 Intake Total 548 ml 1879 ml 438 ml Output Total 550 ml 300 ml Balance 548 ml 1329 ml 138 ml Intake Oral 480 ml 960 ml 360 ml IV Total 68 ml 84 ml 78 ml Other 835 ml Output Urine Total 550 ml 300 ml # Voids 1 5 # Bowel Movements 0 2 0 Result Diagram: 01/18/17 0502 01/18/17 0502 Objective Remarks GENERAL: NAD, A&Ox3 HEAD: Normocephalic. NECK: Supple, trachea midline. No lymphadenopathy. EYES: No scleral icterus. No injection or drainage. CARDIOVASCULAR: Regular rate and rhythm without murmurs, gallops, or rubs. RESPIRATORY: Breath sounds equal bilaterally. No accessory muscle use. GASTROINTESTINAL: Abdomen soft, non-tender, nondistended. MUSCULOSKELETAL: No cyanosis. Lower extremity edema SKIN: Warm and dry. NEURO: No focal neurological deficitis. 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 He has NYHA class III CHF at baseline. Entresto has had significant benefit thus far. Continue to monitor renal function, improvement in renal function thus far. Neurologic findings are slightly improved compared to yesterday. Anxiety improved with Valium. We' ll need to wait for INR to be in therapeutic range before stopping Coumadin bridge. Possible discharge tomorrow if INR is within therapeutic range. Acute CVA History of CVA PT, OT Neurology following Continue heparin drip Follow INR On bridging to Coumadin given low INR admit May need rehabilitation at discharge continue to evaluate while inpatient Echocardiogram shows EF of 20% Class III NYHA systolic CHF Follow fluid balance Start trial of Entresto CKD Follow renal function Possible etiology for chronic kidney disease is poor perfusion Monitor for any worsening of renal disease with trial of Entresto Avoid nephrotoxins Carotid artery stenosis Vascular surgeon consulted He is a poor candidate for contrast imaging studies Aortic Valve Replacement - mechanical valve Goal is INR is therapeutic between 2.5 and 3.5 Follow INR Continue Coumadin DVT prophylaxis Heparin drip Elton Joel MD Jan 18, 2017 10:08
[2017-01-18] MEDS: WARFARIN SOD 5 MG TAB PO SCH (16:23)
[2017-01-18] MEDS: HEPARIN-D5W INJ 250 ML IV SCH (21:51)
[2017-01-19 04:10] VITALS: BP 96/58; PULSE 78; RESP 19; TEMP 88.1; O2SAT 98
[2017-01-19] MEDS: DIAZEPAM 5 MG TAB PO PRN (05:55)
[2017-01-19 06:28] LABS: HEMATOCRIT 31.3 % (39.0-51.0); MEAN CELL VOLUME 79.2 FL (80.0-100.0); MEAN CORPUSCULAR HEMOGLOBIN 24.9 PG (27.0-34.0); MEAN CORPUSCULAR HGB CONC 31.5 % (32.0-36.0); PLATELET COUNT 185 TH/MM3 (150-450); RED BLOOD COUNT 3.96 MIL/MM3 (4.50-5.90); RED CELL DISTRIBUTION WIDTH 26.7 % (11.6-17.2); WHITE BLOOD COUNT 5.4 TH/MM3 (4.0-11.0)
[2017-01-19 06:34] LABS: APTT (PATIENT) 57.2 SEC (24.3-30.1); INTERNATIONAL NORMALIZED RATIO 2.6 RATIO; PROTHROMBIN TIME - PATIENT 30.2 SEC (9.8-11.6)
[2017-01-19 06:39] LABS: REVIEW FLAG FINAL
[2017-01-19 06:45] LABS: BICARBONATE 25.1 MEQ/L (21.0-32.0)
--- NOTE | 2017-01-19 07:14 | HHI.PR ---
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 unable to get cta's 2/2 elevated Cr recs neuro stable resume anticoagulation; due to inr fluctuations resulting in secondary embolic dz, may benefit from home INR monitor-pt understands this p.t./o.t./s.t d/c planning; seen by rehab md f/u outpatient with pcp and us in 2 weeks (2) Anxiety Plan: valium prn now on zoloft; can be further titrated outpatient improved (3) Left-sided carotid artery disease Plan: should get vascular surgery eval outpatient; repeat carotid u/s outpatient (4) History of aortic valve replacement with metallic valve Plan: on coumadin (5) Chronic ischemic left MCA stroke (6) Chronic arterial ischemic stroke, vertebrobasilar, cerebellar (7) Thoracic aortic aneurysm without rupture Subjective Subjective Comments No acute events reported, vision improved, in better spirits No headache No chest pain No dyspnea Active Medications Current Medications Medications (Trade) Dose Ordered Sig/Katharina Route Start Time Stop Time Status Last Admin (NS Flush) 2 ml BID IV FLUSH 01/16/17 09:00 01/17/17 08:19 (NS Flush) 2 ml UNSCH PRN IV FLUSH 01/15/17 21:45 (Heparin Inj) 5,000 units UNSCH PRN IV 01/16/17 03:45 Heparin Sodium (Porcine) 2500 units 2,500 units UNSCH PRN IV 01/16/17 03:45 (Heparin-D5W Inj) 250 ml @ 0 mls/hr TITRATE IV 01/15/17 21:45 01/18/17 21:51 (Protonix) 20 mg DAILY PO 01/16/17 09:00 01/18/17 08:46 (Coumadin) 5 mg DAILY@16 PO 01/16/17 16:00 01/18/17 16:23 (Vitamin D3) 2,000 units DAILY PO 01/16/17 09:00 01/18/17 08:46 (Ferrous Sulfate) 325 mg DAILY PO 01/16/17 09:00 01/18/17 08:47 (Colace) 100 mg BID PO 01/16/17 21:00 01/18/17 21:54 (Bell-Colace) 1 tab DAILY PRN PO 01/16/17 13:45 01/16/17 18:06 (Roxicodone) 5 mg Q4H PRN PO 01/17/17 09:00 01/19/17 05:55 (Milk Of Magnesia Liq) 30 ml BID PRN PO 01/17/17 09:00 01/17/17 09:27 (Glycerin Adult Supp) 2 gm DAILY PRN RECTAL 01/17/17 09:00 (Zoloft) 25 mg DAILY PO 01/17/17 10:00 (Pill Splitter) 1 ea UNSCH PRN OTHER 01/17/17 10:00 (Entresto 49-51 Mg) 1 tab BID PO 01/17/17 12:00 01/18/17 21:49 (Valium) 5 mg Q8HR PRN PO 01/17/17 12:00 01/19/17 05:55 (Valium) 10 mg HS PRN PO 01/17/17 12:00 01/18/17 21:54 Allergies Allergies Coded Allergies Vancomycin (Verified Allergy, Severe, Hallucinations, 01/15/17) Penicillin (Verified Allergy, Mild, Hives, 01/15/17) Review of Systems All other ROS: ROS reviewed as documented in chart Exam I&O / VS 01/18/17 01/18/17 01/19/17 14:59 22:59 06:59 Intake Total 1200 ml 391 ml 339 ml Output Total 500 ml 350 ml Balance 1200 ml -109 ml -11 ml Intake Oral 1200 ml 240 ml 240 ml IV Total 151 ml 99 ml Output Urine Total 500 ml 350 ml # Voids 5 # Bowel Movements 0 0 0 Vital Signs Date Time Temp Pulse Resp B/P Pulse Ox O2 Delivery O2 Flow Rate FiO2 01/19/17 04:10 88.1 78 19 96/58 98 01/18/17 23:30 96.0 83 20 111/60 92 01/18/17 20:05 84 01/18/17 20:00 98.5 89 19 130/60 98 01/18/17 19:30 Room Air 01/18/17 17:23 18 01/18/17 16:00 96.5 91 18 143/69 98 01/18/17 12:00 96.9 76 18 96/45 96 01/18/17 08:00 96.8 91 18 122/63 98 General: Alert and Oriented, No acute distress Eye: EOMI Respiratory: Non-labored respirations Neurologic: Alert, Oriented, Normal motor Psychiatric: Cooperative, Appropriate mood & affect, Normal judgement, Non- suicidal Exam Comments alert ox 3, sitting up in bed,calm, pleasant, follows, left HH curvilinear, face sym, no drift, no dystaxia, no neglect, gait not assessed 2/2 fall risk Objective Micro and Labs Laboratory Tests Test 01/19/17 01/19/17 05:10 05:40 Sodium Level 139 Potassium Level 4.0 Chloride Level 105 Carbon Dioxide Level 25.1 Anion Gap 9 Blood Urea Nitrogen 29 Creatinine 2.33 Estimat Glomerular Filtration 29 Rate Random Glucose 92 Calcium Level 9.3 White Blood Count 5.4 Red Blood Count 3.96 Hemoglobin 9.9 Hematocrit 31.3 Mean Corpuscular Volume 79.2 Mean Corpuscular Hemoglobin 24.9 Mean Corpuscular Hemoglobin 31.5 Concent Red Cell Distribution Width 26.7 Platelet Count 185 Mean Platelet Volume 7.9 Prothrombin Time 30.2 Prothromb Time International 2.6 Ratio Activated Partial 57.2 Thromboplast Time Date/Time Procedure Status Source Growth 01/17/17 18:00 Stool Occult Blood (DENIZ) - Final Complete Stool Stool HEMOCCULT NEGATIVE Forrest Virk MD Jan 19, 2017 07:14
[2017-01-19 07:21] VITALS: BP 116/66; PULSE 81; RESP 17; TEMP 97.9; O2SAT 96
--- NOTE | 2017-01-19 07:43 | PD.VS.CON ---
History of Present Illness Chief Complaint: stroke Consult Requested by: Dr. Joel History of Present Illness 61 yo male well known to me, s/p L C-SC bypass and TEVAR in 2008 at and then he re-presented with chest pain and a new distal thoracic DONNIE for which I performed a TEVAR extension on October 22, 2016. At that time he had a R groin reconstruction as well. 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 His presenting symptom was central visual changes. Speech is at baseline and no COOPER or motor deficits. Of note, he has a history of an AVR and is on coumadin and there was concern that he was supratherapeutic prior to admission for which he stopped his coumadin. His INR was 1.5 on admission. At present, he looks well and is anticipating d/c soon. He denies chest pain or new back pain. His R groin wound has healed. Past/Family/Social History Past Medical History HTN CVA CRI (creatinine 2.2) CAD ? Marfan's Past Surgical History CABG/AVR (mechanical) L C-SC/TEVAR TEVAR w/ R groin reconstruction hernia repair R neck lymph node excision Social History former smoker Family History NC Home Medications Reported Medications Pantoprazole 20 Mg Tab20 Mg PO DAILY #30 TAB Ref 0 01/15/17 Bumetanide 2 Mg Tab2 Mg PO DAILY Ref 0 01/15/17 Ferrous Sulfate (Iron)325 Mg [id number] Mg PO DAILY #30 TAB Ref 0 01/15/17 Cholecalciferol (Vitamin D3) (D3-1999)2,000 Unit Capsule1 Cap PO DAILY 12/12/16 Warfarin 5 Mg Tab5 Mg PO DAILY #30 TAB Ref 0 12/12/16 Metoprolol Tartrate 50 Mg Tab50 Mg PO BID #60 TAB Ref 0 12/12/16 Discontinued Reported Medications Cefdinir 300 Mg [id number] Mg PO BID Ref 0 12/12/16 Valsartan 80 Mg Tab80 Mg PO DAILY #30 TAB Ref 0 12/12/16 Furosemide 40 Mg Tab40 Mg PO DAILY #30 TAB Ref 0 12/12/16 Discontinued Scripts Levofloxacin 250 Mg [id number] Mg PO DAILY #10 TAB Ref 0 Prov:Nicho Rubi MD 12/12/16 Coded Allergies: Vancomycin (Verified Allergy, Severe, Hallucinations, 01/15/17) Penicillin (Verified Allergy, Mild, Hives, 01/15/17) Review of Systems Constitutional: DENIES: Fever, Chills, Change in appetite Eyes: COMPLAINS OF: Vision loss Cardiovascular: COMPLAINS OF: Lower Extremity Edema, DENIES: Chest pain Gastrointestinal: DENIES: Abdominal pain Psychiatric: COMPLAINS OF: Anxiety Physical Exam Vitals/I&O Date Time Temp Pulse Resp B/P Pulse Ox O2 Delivery O2 Flow Rate FiO2 01/19/17 07:21 97.9 81 17 116/66 96 01/19/17 04:10 88.1 78 19 96/58 98 01/18/17 23:30 96.0 83 20 111/60 92 01/18/17 20:05 84 01/18/17 20:00 98.5 89 19 130/60 98 01/18/17 19:30 Room Air 01/18/17 17:23 18 01/18/17 16:00 96.5 91 18 143/69 98 01/18/17 12:00 96.9 76 18 96/45 96 01/18/17 08:00 96.8 91 18 122/63 98 01/19/17 01/19/17 01/19/17 07:00 15:00 23:00 Intake Total 339 ml Output Total 350 ml Balance -11 ml Neuro: alert, oriented, LAMAS speech normal for him HEENT: NC/AT; sclera anicteric Neck: no JVD Heart: + click of AVR Lungs: clear B Abdomen: NT Vascular: R groin incision healed, no masses Extremities: mild edema, R sl worse than L Laboratory Tests Test 01/19/17 01/19/17 05:10 05:40 Sodium Level 139 Potassium Level 4.0 Chloride Level 105 Carbon Dioxide Level 25.1 Anion Gap 9 Blood Urea Nitrogen 29 Creatinine 2.33 Estimat Glomerular Filtration 29 Rate Random Glucose 92 Calcium Level 9.3 White Blood Count 5.4 Red Blood Count 3.96 Hemoglobin 9.9 Hematocrit 31.3 Mean Corpuscular Volume 79.2 Mean Corpuscular Hemoglobin 24.9 Mean Corpuscular Hemoglobin 31.5 Concent Red Cell Distribution Width 26.7 Platelet Count 185 Mean Platelet Volume 7.9 Prothrombin Time 30.2 Prothromb Time International 2.6 Ratio Activated Partial 57.2 Thromboplast Time Date/Time Procedure Status Source Growth 01/17/17 18:00 Stool Occult Blood (DENIZ) - Final Complete Stool Stool HEMOCCULT NEGATIVE R PROBE 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 Likely small vessel disease. 2. He is on appropriate medical therapy and clinically looks great from TEVAR standpoint 3. Will f/u in my clinic in 1m. Pt has my phone numbers and I will set up appointment Darryl Pérez MD FACS RPVI cigar bander hand [facility] - Heart and Vascular Surgery at [facility] [phone] Darryl Pérez MD Jan 19, 2017 07:43
[2017-01-19] MEDS: SODIUM CHLORIDE 0.9% FLUSH 5 ML FLUSH IV FLUSH SCH (09:00)
[2017-01-19] MEDS: DOCUSATE SODIUM 100 MG CAP PO SCH (10:46)
[2017-01-19] MEDS: SACUBITRIL/VALSARTAN 49 MG-51 MG TAB PO SCH (10:47)
[2017-01-19] MEDS: FERROUS SULFATE 325 MG (65 MG ELEMENTAL IRON) TAB PO SCH (10:47)
[2017-01-19] MEDS: PANTOPRAZOLE SOD 20 MG DELAYED RELEASE TAB PO SCH (10:47)
[2017-01-19] MEDS: SERTRALINE HCL 50 MG TAB PO SCH (10:49)
[2017-01-19] MEDS: CHOLECALCIFEROL (VIT D3) 1000 UNIT TAB PO SCH (10:49)
[2017-01-19] MEDS ORDERED: SACU1TAB7 PO (10:53)
[2017-01-19] MEDS ORDERED: ZOLO50TA PO (10:53)
[2017-01-19] MEDS ORDERED: METO25TA3 PO (10:53)
[2017-01-19] MEDS ORDERED: DIAZ5 PO (10:53)
--- NOTE | 2017-01-19 10:58 | HHI.DS ---
Discharge Summary Admission Date Jan 15, 2017 at 21:40 Discharge Date: Jan 19, 2017 Admitting Diagnosis Subacute CVA (1) CVA (cerebral vascular accident) ICD Code: I63.9 (2) Internal carotid artery stenosis ICD Code: I65.29 Diagnosis: Secondary (3) Renal insufficiency ICD Code: N28.9 Diagnosis: Secondary (4) Anemia ICD Code: D64.9 Diagnosis: Secondary Procedures None Brief History - From Admission Written by Fabiana Higgins, acting as scribe for Dr. Avila on 01/16/17 at 03:48. Difficulty seeing centrally, peripheral vision poor. Symptoms started at 11 a.m. Denies any weakness Patient reports headache went from mild to severe Denies any history of headaches Reports fevers following aneurysm repair - October 2016 - for about one month - has been fever free for about a month Denies nausea, vomiting, hematuria, dysuria, hematochezia, or abdominal pain INR 3.9 on Thursday, coumadin was stopped x 1 day; Went to [facility] last week on Thursday and was told INR was 6.1 - Coumadin stopped and was told to hold until today Not placed on antibiotics Black stools, chronically, r/t iron Currently reporting a severe headache CBC/BMP: 01/19/17 0540 01/19/17 0510 Significant Findings Laboratory Tests Test 01/16/17 01/16/17 01/17/17 01/17/17 13:10 16:30 01:08 10:51 Activated Partial 125.2 SEC 53.9 SEC 36.6 SEC 38.1 SEC Thromboplast Time (24.3-30.1) (24.3-30.1) (24.3-30.1) (24.3-30.1) Prothrombin Time 18.7 SEC (9.8-11.6) Test 01/17/17 01/18/17 01/18/17 01/19/17 18:11 03:23 05:02 05:10 Activated Partial 39.6 SEC 48.0 SEC 42.0 SEC Thromboplast Time (24.3-30.1) (24.3-30.1) (24.3-30.1) Red Blood Count 3.84 MIL/MM3 (4.50-5.90) Hemoglobin 9.3 GM/DL (13.0-17.0) Hematocrit 30.3 % (39.0-51.0) Mean Corpuscular Volume 78.9 FL (80.0-100.0) Mean Corpuscular Hemoglobin 24.2 PG (27.0-34.0) Mean Corpuscular Hemoglobin 30.7 % Concent (32.0-36.0) Red Cell Distribution Width 24.9 % (11.6-17.2) Prothrombin Time 24.8 SEC (9.8-11.6) Blood Urea Nitrogen 32 MG/DL (7-18) 29 MG/DL (7-18) Creatinine 2.25 MG/DL 2.33 MG/DL (0.60-1.30) (0.60-1.30) Estimat Glomerular Filtration 30 ML/MIN (>89) 29 ML/MIN (>89) Rate Test 01/19/17 05:40 Red Blood Count 3.96 MIL/MM3 (4.50-5.90) Hemoglobin 9.9 GM/DL (13.0-17.0) Hematocrit 31.3 % (39.0-51.0) Mean Corpuscular Volume 79.2 FL (80.0-100.0) Mean Corpuscular Hemoglobin 24.9 PG (27.0-34.0) Mean Corpuscular Hemoglobin 31.5 % Concent (32.0-36.0) Red Cell Distribution Width 26.7 % (11.6-17.2) Prothrombin Time 30.2 SEC (9.8-11.6) Activated Partial 57.2 SEC Thromboplast Time (24.3-30.1) Hospital Course Mr. Nagy is a 61-year-old male who was admitted with acute CVA. She has had strokes in the past. She has mechanical heart valve and is on anticoagulation for this. INR level was hypertherapeutic at time of admit and this may have been contributory to his CVA. No motor deficits. He does have visual change which has improved her time. Recommended treatment is resumption of his anticoagulation so he was held in the hospital for both monitoring and Lovenox bridge while Coumadin was given. His INR has been therapeutic now for over 24 hours. Anxiety treatments were also changed with the addition of Valium during his hospital stay. This is improving the patient's mental status and anxiety and Zoloft as an added treatment also. Additionally we started Entresto to treat his NYHA class III systolic congestive heart failure. He has had improvement in his clinical symptoms with this treatment. His blood pressure did slightly decrease so beta blockers have been changed from 50 milligrams by mouth twice a day to 25 mg by mouth twice a day. Some degree of carotid stenosis was present but medical management is recommended for this and changes have appeared and are not ready as an outpatient. Patient is feeling well today and medically stable for discharge to home. Discharge home today. Pt Condition on Discharge: Stable Discharge Disposition: Discharge Home Discharge Time: > 30 minutes Discharge Instructions DIET: Follow Instructions for: Heart Healthy Diet Speech Therapy-Diet Recommends: Regular Activities you can perform: Regular-No Restrictions Follow up Referrals: PCP Follow-up - 2 Weeks Physical Medicine & Rehab - 1 Month with Violet Hodges MD New Medications: Metoprolol Tartrate (Metoprolol Tartrate) 25 Mg Tab 25 MG PO BID CHF #60 Ref 0 TAB Diazepam (Valium) 5 Mg Tab 5 MG PO TID AM, Noon, and PM as needed PRN Anxiety #90 TAB Sacubitril-Valsartan (Entresto) 49-51 Mg Tab 1 TAB PO BID CHF #60 TAB Sertraline (Zoloft) 50 Mg Tab 25 MG PO DAILY Anxiety and/or Insomnia #30 TAB Continued Medications: Bumetanide (Bumetanide) 2 Mg Tab 2 MG PO DAILY Ref 0 TAB Cholecalciferol (Vitamin D3) (D3-2000) 2,000 Unit Capsule 1 CAP PO DAILY Ferrous Sulfate (Iron) 325 Mg Cap 325 MG PO DAILY Nutritional Supplement #30 Ref 0 TAB Pantoprazole (Pantoprazole) 20 Mg Tab 20 MG PO DAILY Reflux #30 Ref 0 TAB Warfarin (Warfarin) 5 Mg Tab 5 MG PO DAILY Blood Clot Prevention #30 Ref 0 TAB Discontinued Medications: Metoprolol Tartrate (Metoprolol Tartrate) 50 Mg Tab 50 MG PO BID #60 Ref 0 TAB Elton Joel MD Jan 19, 2017 10:58
[2017-01-19 11:31] VITALS: BP 135/59; PULSE 84; RESP 17; TEMP 97.2; O2SAT 99
--- NOTE | 2017-01-19 20:57 | HHI.PR ---
Subjective Subjective Comments Patient awake and alert. Anxious to return home. Feels that his mobility is at baseline. Allergies: Coded Allergies: Vancomycin (Verified Allergy, Severe, Hallucinations, 01/15/17) Penicillin (Verified Allergy, Mild, Hives, 01/15/17) Review of Systems All other ROS: ROS reviewed as documented in chart Exam I&O / VS 01/18/17 01/18/17 01/19/17 14:59 22:59 06:59 Intake Total 1200 ml 391 ml 339 ml Output Total 500 ml 350 ml Balance 1200 ml -109 ml -11 ml Intake Oral 1200 ml 240 ml 240 ml IV Total 151 ml 99 ml Output Urine Total 500 ml 350 ml # Voids 5 # Bowel Movements 0 0 0 Vital Signs Date Time Temp Pulse Resp B/P Pulse Ox O2 Delivery O2 Flow Rate FiO2 01/19/17 11:31 97.2 84 17 135/59 99 01/19/17 07:21 97.9 81 17 116/66 96 01/19/17 04:10 88.1 78 19 96/58 98 01/18/17 23:30 96.0 83 20 111/60 92 General: No acute distress Cardiovascular: Normal rate Musculoskeletal: ROM (within functional limits) Psychiatric: Cooperative Orientation: oriented to Self, oriented to Place, oriented to Situation Neurologic: Speech (intelligible with no word finding difficulties), Other ( bilateral upper and lower extremities 5/5) Sensory Intact to light touch in all extremities Clonus: Negative Balance: Standing (patient is able to come sit to stand with contact guard and balance is fair plus) Objective Micro and Labs Laboratory Tests Test 01/19/17 01/19/17 05:10 05:40 Sodium Level 139 Potassium Level 4.0 Chloride Level 105 Carbon Dioxide Level 25.1 Anion Gap 9 Blood Urea Nitrogen 29 Creatinine 2.33 Estimat Glomerular Filtration 29 Rate Random Glucose 92 Calcium Level 9.3 White Blood Count 5.4 Red Blood Count 3.96 Hemoglobin 9.9 Hematocrit 31.3 Mean Corpuscular Volume 79.2 Mean Corpuscular Hemoglobin 24.9 Mean Corpuscular Hemoglobin 31.5 Concent Red Cell Distribution Width 26.7 Platelet Count 185 Mean Platelet Volume 7.9 Prothrombin Time 30.2 Prothromb Time International 2.6 Ratio Activated Partial 57.2 Thromboplast Time Date/Time Procedure Status Source Growth 01/17/17 18:00 Stool Occult Blood (DENIZ) - Final Complete Stool Stool HEMOCCULT NEGATIVE Assessment and Plan Diagnosis: (1) 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 Right posterior cervical artery/occipital CVA with impaired vision and decreased balance 2. Marfan syndrome 3. Peripheral vascular disease 4. Titanium aortic valve replacement 5. Coronary artery disease status post CABG 6. Left carotid stenosis for follow-up carotid ultrasound and vascular surgery evaluation as an outpatient Plan 1. Patient is progressing with mobility and now standby assist for transfers and ambulating 70 feet 2 with physical therapy contact guard. Patient refusing ongoing physical therapy. Continue supervision at home for fall prevention. 2. Tolerating regular diet and thin liquids per speech therapy 3. Case management is making arrangements for discharge. Patient will obtain a cane to help with gait at home 4. Will follow-up as an outpatient Violet Hodges MD Jan 19, 2017 20:57
== END 2017-01-19 12:58 | disposition home or self-care (01) | DRG 65 ==
LOC: NEPC 16:58 → NEDA 21:40 → N06A 23:07
PROVIDERS: ADMIT Hospitalist; ATTEND Hospitalist
DX: I63.531 Cerebral infarction due to unspecified occlusion or stenosis of right posterior cerebral artery (principal); Q87.40 Marfan syndrome, unspecified; I50.22 Chronic systolic (congestive) heart failure; I63.59 Cerebral infarction due to unspecified occlusion or stenosis of other cerebral artery; I71.2 Thoracic aortic aneurysm, without rupture; N18.9 Chronic kidney disease, unspecified; I65.22 Occlusion and stenosis of left carotid artery; D64.9 Anemia, unspecified; H54.3 Unqualified visual loss, both eyes; R29.701 NIHSS score 1; I73.9 Peripheral vascular disease, unspecified; I25.10 Atherosclerotic heart disease of native coronary artery without angina pectoris; J44.9 Chronic obstructive pulmonary disease, unspecified; F41.0 Panic disorder [episodic paroxysmal anxiety]; I25.2 Old myocardial infarction; Z95.2 Presence of prosthetic heart valve; Z86.73 Personal history of transient ischemic attack (TIA), and cerebral infarction without residual deficits; Z95.1 Presence of aortocoronary bypass graft; Z95.820 Peripheral vascular angioplasty status with implants and grafts; Z79.01 Long term (current) use of anticoagulants; Z87.891 Personal history of nicotine dependence; Z88.0 Allergy status to penicillin
CPT/HCPCS: 70450; 71010; 80048; 80053; 80061; 82272; 82948; 83036; 83735; 84443; 85025; 85027; 85610; 85730; 93005; 93306; 93880; J1644